=== PATIENT | female | born 1960 | race Caucasian/White ===

== ENCOUNTER 2016-09-16 11:43 | Emergency (ER) | payer MEDICARE, OTHER ==
[~2016-09-16] VITALS: Ht 167.6 cm; Wt 111.6 kg
[~2016-09-16 11:43] MED LIST: ATOR10TA60 PO; CLON0.1T PO; DILT60CA PO; FLUT1DIS3 IH; HYDR-971 PO; IPRA0.2S5 IH; LISI1TAB5 PO; LORA1TAB PO; METF500T4 PO; MOME13HF IH; NAPR500T PO; OXYC-323 PO; PRED1TAB3 PO; PROAIR HFA8.5 GM IH; SULF1TAB24 PO
[2016-09-16 11:54] VITALS: BP 194/100
[2016-09-16] MEDS ORDERED: NAPROXEN 500 MG TABLET PO STA (12:04)
[2016-09-16] MEDS ORDERED: NAPR500T8 PO (12:09)
[2016-09-16] MEDS ORDERED: HYDR-971 PO (12:09)
[2016-09-16] MEDS ORDERED: CYCL10TA2 PO (12:09)
[2016-09-16] MEDS ORDERED: METH4TAB2 PO (12:09)
--- NOTE | 2016-09-16 12:09 | PHYS DOC ---
Past Medical History Past Medical History: Anxiety, Cancer, COPD, High Cholesterol, Hypertension Past Surgical History: Appendectomy Additional Past Surgical Histo: nephrectomy, uterine ablation, hernia, colon resection Alcohol Use: Occasionally Drug Use: None Adult General Chief Complaint Chief Complaint: LOWER EXT PAIN HPI HPI Patient is a 55 year old female with a history of anxiety, hypertension, COPD, who presents today with moderate right hip pain radiating to the left lower extremity that began a month ago. Patient states she has tried [id number] remedies with no relief. She states her pain is worse when she is bearing weight to the right lower extremity. Patient denies any trauma. Denies any loss of bowel bladder was function. Review of Systems Review of Systems Constitutional: Denies fever or chills [] Eyes: Denies change in visual acuity, redness, or eye pain [] HENT: Denies nasal congestion or sore throat [] Musculoskeletal: Pain radiating from the right hip into the right lower extremity Integument: Denies rash or skin lesions [] Neurologic: Denies headache, focal weakness or sensory changes [] Endocrine: Denies polyuria or polydipsia [] Current Medications Current Medications Current Medications Medications (Trade) Dose Ordered Sig/Prieto Start Time Stop Time Status Last Admin Dose Admin Acetaminophen/ Hydrocodone Bitart (Lortab 5/325) 2 tab 1X ONCE 09/16/16 12:15 09/16/16 12:16 Cyclobenzaprine HCl (Flexeril) 10 mg 1X ONCE 09/16/16 12:15 09/16/16 12:16 Naproxen (Naprosyn) 500 mg 1X STAT 09/16/16 12:04 09/16/16 12:08 DC Allergies Allergies Allergies Coded Allergies Type Severity Reaction Last Updated Verified Beta-Blockers (Beta-Adrenergic Bloc Allergy Severe BREATHING PROBLEMS 10/22/13 Yes Iodinated Contrast Media - IV Dye Allergy Intermediate SWELLING AND ITCHING 10/22/13 Yes Physical Exam Physical Exam Constitutional: Well developed, well nourished, no acute distress, non-toxic appearance. [] HENT: Normocephalic, atraumatic, bilateral external ears normal, oropharynx moist, no oral exudates, nose normal. [] Eyes: PERRLA, EOMI, conjunctiva normal, no discharge. [] Skin: Warm, dry, no erythema, no rash. [] Back: No tenderness, no CVA tenderness. Positive right leg straight raises. Extremities: No tenderness, no cyanosis, no clubbing, ROM intact, no edema. [] Neurologic: Alert and oriented X 3, normal motor function, normal sensory function, no focal deficits noted. [] Psychologic: Affect normal, judgement normal, mood normal. [] Current Patient Data Vital Signs Vital Signs Date Time Temp Pulse Resp B/P (MAP) Pulse Ox O2 Delivery O2 Flow Rate FiO2 09/16/16 11:54 97.6 125 20 97 Room Air 97.6 EKG EKG [] Radiology/Procedures Radiology/Procedures [] Course & Med Decision Making Course & Med Decision Making Pertinent Labs and Imaging studies reviewed. (See chart for details) Patient is in the ED with pain consistent with sciatica. She has tried over-the- counter remedies with no relief. She is given a shot course of Medrol Dosepak, naproxen, Flexeril, and hydrocodone and instructed to follow-up with her PCP in the next 7 days. She was provided return precautions and discharged in stable condition. Dragon Disclaimer Dragon Disclaimer This electronic medical record was generated, in whole or in part, using a voice recognition dictation system. Departure Departure Impression: Primary Impression: Right sciatic nerve pain Disposition: HOME, SELF-CARE Condition: STABLE Referrals: ISMAEL BENITES MD (PCP) follow up with your doctor in one week Patient Instructions: Sciatica with [facility] Additional Instructions: You were seen for sciatic nerve pain. Take the prescribed medicines as needed. Follow-up with your own doctor in the next 7 days. Scripts Naproxen (NAPROXEN) 500 Mg Tablet. 1 TAB PO BID, #60 TAB 1 Refill Prov: GAYE VERMA APRN 09/16/16 Cyclobenzaprine Hcl (CYCLOBENZAPRINE HCL) 10 Mg Tablet 1 TAB PO TID, #30 TAB Prov: GAYE VERMA APRN 09/16/16 Hydrocodone/Apap 5-325 (NORCO 5-325 TABLET) 1 Each Tablet 1 TAB PO Q4-6HRS, #12 TAB Prov: GAYE VERMA HADOOP CONSULTANT 09/16/16 Methylprednisolone (MEDROL) 4 Mg Tab.ds.pk 1 PKG PO UD, #1 PKG Prov: GAYE VERMA HADOOP CONSULTANT 09/16/16 GAYE VERMA APRN Sep 16, 2016 12:09
[2016-09-16] MEDS ORDERED: HYDROcodone/APAP 5/325MG 1 TAB TABLET PO ONE (12:15)
[2016-09-16] MEDS ORDERED: CYCLOBENZAPRINE 10 MG TABLET. PO ONE (12:15)
== END 2016-09-16 12:15 | disposition home or self-care (01) ==
LOC: ER 11:43
DX: M54.31 Sciatica, right side (principal); F41.9 Anxiety disorder, unspecified; J44.9 Chronic obstructive pulmonary disease, unspecified; E78.00 Pure hypercholesterolemia, unspecified; I10 Essential (primary) hypertension; Z90.49 Acquired absence of other specified parts of digestive tract; Z90.5 Acquired absence of kidney; Z88.8 Allergy status to other drugs, medicaments and biological substances; Z91.041 Radiographic dye allergy status
CPT/HCPCS: 99284

== ENCOUNTER → 2016-10-28 | Outpatient (CLI) | payer MEDICARE, OTHER ==
[~2016-10-28] MED LIST changes: +CYCL10TA2 PO; +METH4TAB2 PO; +NAPR500T8 PO
--- NOTE | 2016-10-31 17:27 | CARD ---
APPROVED REPORT EXAM: Two-dimensional and M-mode echocardiogram with Doppler and color Doppler. Other Information Quality : Average Rhythm : NSR INDICATION Dyspnea 2D DIMENSIONS RVDd2.3 (2.9-3.5cm)Left Atrium(2D)3.5 (1.6-4.0cm) IVSd1.3 (0.7-1.1cm)Aortic Root(2D)2.7 (2.0-3.7cm) LVDd4.1 (3.9-5.9cm)LVOT Diameter2.4 (1.8-2.4cm) PWd1.3 (0.7-1.1cm)LVDs3.1 (2.5-4.0cm) FS (%) 25.4 %SV38.1 ml LVEF(%)50.5 (>50%) Aortic Valve AoV Peak Ebenezer.123.2cm/sAoV VTI17.4cm AO Peak GR.6.1mmHgLVOT Peak Ebenezer.106.3cm/s AO Mean GR.3mmHgAVA (VMAX)3.78cm2 Mitral Valve MV E Knjatolc74.7cm/sMV DECEL CDAZ774at MV A Lalxfekr187.5cm/sE/A Ratio0.7 MV A Msllunra14dc Tricuspid Valve TR P. Hsldzyvx549cc/sRAP JWVAPNSG2xvCn TR Peak Gr.02hiUsZDDY08xwVu LEFT VENTRICLE The left ventricle is normal size. There is borderline to mild concentric left ventricular hypertroph y. Left ventricle systolic function is normal. The Ejection Fraction is 55%. There is normal LV segme ntal wall motion. Tissue Doppler imaging reveals mild left ventricular diastolic dysfunction. Transmi tral Doppler flow pattern is Grade I-abnormal relaxation pattern. RIGHT VENTRICLE The right ventricle is normal size. The right ventricular systolic function is normal. ATRIA The left atrium size is normal. The right atrium size is normal. The interatrial septum is intact wit h no evidence for an atrial septal defect or patent foramen ovale as noted on 2-D or Doppler imaging. AORTIC VALVE The aortic valve is not well visualized. Doppler and Color Flow revealed no significant aortic regurg itation. There is no significant aortic valvular stenosis. MITRAL VALVE Mitral annular calcification is mild. There is no mitral valve stenosis. Doppler and Color Flow revea led no mitral valve regurgitation noted. TRICUSPID VALVE The tricuspid valve is normal in structure and function. Doppler and Color Flow revealed trace tricus pid regurgitation. The PA pressure was estimated at 16 mmHg. There is no tricuspid valve stenosis. PULMONIC VALVE The pulmonic valve is not well visualized. Doppler and Color Flow revealed no pulmonic valvular regur gitation. There is no pulmonic valvular stenosis. GREAT VESSELS The aortic root is normal in size. Pulmonary veins not recorded. The IVC is normal in size and collap ses >50% with inspiration. PERICARDIAL EFFUSION There is no evidence of significant pericardial effusion. Critical Notification Critical Value: No <Conclusion> Left ventricle systolic function is normal. The Ejection Fraction is 55%. There is normal LV segmental wall motion. Transmitral Doppler flow pattern is Grade I-abnormal relaxation pattern. Trace tricuspid regurgitation. The PA pressure was estimated at 16 mmHg. There is no evidence of significant pericardial effusion.
== END | disposition home or self-care (01) ==
LOC: ECHO 12:56
PROVIDERS: ATTEND Internal Medicine Cardiovascular Disease
DX: I07.1 Rheumatic tricuspid insufficiency (principal)
CPT/HCPCS: 93306

== ENCOUNTER 2016-11-24 10:08 | Emergency (ER) | payer MEDICARE, MEDICAID ==
[~2016-11-24] VITALS: Ht 167.6 cm; Wt 107.0 kg
--- NOTE | 2016-11-24 10:44 | PHYS DOC ---
Past Medical History Past Medical History: Anxiety, Arthritis, Cancer, COPD, High Cholesterol, Hypertension Past Surgical History: Appendectomy Additional Past Surgical Histo: nephrectomy, uterine ablation, hernia, colon resection Alcohol Use: Occasionally Drug Use: None Adult General Chief Complaint Chief Complaint: BACK PAIN OR INJURY [facility] HPI Patient is a 56 year old female presents emergency department stating that she had fallen when she went to get out of bed and landed on her right hip. She states she has had increased pain and discomfort. Patient states that she is also having left lower back pain and discomfort radiates down into her left foot. Patient states she is able to ambulate however she has taken Tylenol for pain and discomfort with minimal relief. He states that she did call her primary care physician and was told that they are out of town until December 10. She does have an appointment at that time. She denies any loss of bowel or bladder. Patient denies any further symptoms at this time. Review of Systems Review of Systems Constitutional: Denies fever or chills [] Eyes: Denies change in visual acuity, redness, or eye pain [] HENT: Denies nasal congestion or sore throat [] Respiratory: Denies cough or shortness of breath [] Cardiovascular: No additional information not addressed in HPI [] GI: Denies abdominal pain, nausea, vomiting, bloody stools or diarrhea [] : Denies dysuria or hematuria [] Musculoskeletal: C/o bilateral lower back pain with right hip pain Integument: Denies rash or skin lesions [] Neurologic: Denies headache, focal weakness or sensory changes [] Endocrine: Denies polyuria or polydipsia [] Current Medications Current Medications Current Medications Medications (Trade) Dose Ordered Sig/Prieto Start Time Stop Time Status Last Admin Dose Admin Cyclobenzaprine HCl (Flexeril) 10 mg 1X ONCE 11/24/16 11:15 11/24/16 11:16 DC 11/24/16 10:48 10 MG Ibuprofen (Motrin) 800 mg 1X ONCE 11/24/16 11:15 11/24/16 11:16 DC 11/24/16 10:49 800 MG Allergies Allergies Allergies Coded Allergies Type Severity Reaction Last Updated Verified Beta-Blockers (Beta-Adrenergic Bloc Allergy Severe BREATHING PROBLEMS 10/22/13 Yes Iodinated Contrast- Oral and IV Dye Allergy Intermediate SWELLING AND ITCHING 10/22/13 Yes Physical Exam Physical Exam Constitutional: Well developed, well nourished, no acute distress, non-toxic appearance. [] HENT: Normocephalic, atraumatic, bilateral external ears normal, oropharynx moist, no oral exudates, nose normal. [] Eyes: PERRLA, EOMI, conjunctiva normal, no discharge. [] Neck: Normal range of motion, no tenderness, supple, no stridor. [] Cardiovascular:Heart rate regular rhythm, no murmur [] Lungs & Thorax: Bilateral breath sounds clear to auscultation [] Skin: Warm, dry, no erythema, no rash. [] Back: bilateral lower back tenderness with right hip tenderness Extremities: No tenderness, no cyanosis, no clubbing, ROM intact, no edema. Peripheral pulses 2+ cap refill brisk less than 2 seconds. Neurologic: Alert and oriented X 3, normal motor function, normal sensory function, no focal deficits noted. [] Psychologic: Affect normal, judgement normal, mood normal. [] Current Patient Data Vital Signs Vital Signs Date Time Temp Pulse Resp B/P (MAP) Pulse Ox O2 Delivery O2 Flow Rate FiO2 11/24/16 10:21 98.8 118 22 178/97 (124) 97 Room Air 98.8 EKG EKG [] Radiology/Procedures Radiology/Procedures [facility] [address] [place] [address] IMAGING REPORT Signed PATIENT: PAULO NIEVES ACCOUNT: [id number] : 08/13/1981 LOCATION: ER AGE: 35 SEX: F EXAM STATUS: PRE ER ORD. PHYSICIAN: SANIYA MURRAY APRN REASON: pacemaker pinching in the left upper chest PROCEDURE: PORTABLE CHEST 1V AP portable chest radiograph 11/24/2016 Clinical History: Lightheadedness earlier today with chest pain around pacemaker in left chest. An AP portable erect digital radiograph of the chest was obtained. Comparison study is dated 10/24/2016. The left-sided pacemaker is unchanged position. The cardiac silhouette is borderline enlarged. The thoracic aorta is mildly tortuous. No acute pulmonary infiltrate is seen. No pleural effusion or pneumothorax is noted. The osseous structures are unchanged. Impression: No acute abnormality is seen. DICTATED and SIGNED BY: KATHY MCKEON MD DATE: 11/24/16 1043 CC: JORDAN EVANGELISTA; SANIYA MURRAY APRN ~ [] Course & Med Decision Making Course & Med Decision Making Pertinent Labs and Imaging studies reviewed. (See chart for details) Patient was provided with Flexeril and ibuprofen here in the emergency department in which patient states that the pain is decreasing. Patient's x- rays were negative in which she had a right hip and pelvis completed. Patient will be discharged home with a prescription for Flexeril with recommendations to continue with ibuprofen at home. Ice packs on 20 minutes off 20 minutes several times a day. Patient agrees with discharge instructions, treatment regimens and follow-up recommendations. Signs and symptoms to return back to emergency prior has been provided. Patient agrees with discharge instructions treatment regimens and follow-up recommendations. All questions were answered for the patient at her bedside. [] Dragon Disclaimer Dragon Disclaimer This electronic medical record was generated, in whole or in part, using a voice recognition dictation system. Departure Departure Impression: Primary Impression: Fall Additional Impression: Back pain Disposition: HOME, SELF-CARE Condition: STABLE Referrals: ISMAEL BENITES MD (PCP) Patient Instructions: Back Pain, Adult, Gosr-nv-Mggb, Fall Prevention and Home Safety, [id number]-[id number] Additional Instructions: Activity as tolerated. Ice packs on 20 minutes off 20 minutes several times a day. Flexeril will help with muscle spasms. This medication however will cause drowsiness do not take any be alert and oriented. Ibuprofen 800 mg every 8 hours with food stop taking few develop an upset stomach. Follow-up to primary care physician in one week. Return to emergency prior signs symptoms of become worse. Problem Qualifiers SANIYA MURRAY APRN Nov 24, 2016 10:44
--- NOTE | 2016-11-24 11:14 | RAD ---
Indication fall 2 days previously. Severe pain right hip. An AP view of the pelvis was obtained as well as targeted AP and lateral views of the right hip. No acute bony finding is seen. There are substantial degenerative changes involving both hips right greater than left. There is complete loss of the joint space on the right. There is sclerosis of the femoral head and adjacent acetabulum with some degenerative cyst change associated with the acetabulum. IMPRESSION: Advanced degenerative changes involving the hips right greater than left. No acute bony finding seen
[2016-11-24] MEDS ORDERED: IBUPROFEN 800 MG TABLET. PO ONE (11:15)
[2016-11-24] MEDS ORDERED: CYCLOBENZAPRINE 10 MG TABLET. PO ONE (11:15)
[2016-11-24] MEDS ORDERED: CYCL10TA2 PO (11:43)
[2016-11-24 11:54] VITALS: BP 167/89
== END 2016-11-24 11:55 | disposition home or self-care (01) ==
LOC: ER 10:08
DX: M54.5 Low back pain (principal); M25.551 Pain in right hip; E78.00 Pure hypercholesterolemia, unspecified; I10 Essential (primary) hypertension; J44.9 Chronic obstructive pulmonary disease, unspecified; Z95.0 Presence of cardiac pacemaker; M19.90 Unspecified osteoarthritis, unspecified site; Z90.49 Acquired absence of other specified parts of digestive tract; Z88.8 Allergy status to other drugs, medicaments and biological substances; Z91.041 Radiographic dye allergy status; W06.XXXA Fall from bed, initial encounter; Y93.89 Activity, other specified; Y99.8 Other external cause status; Y92.89 Other specified places as the place of occurrence of the external cause
CPT/HCPCS: 73502; 99284

== ENCOUNTER → 2017-04-04 | Outpatient (CLI) | payer MEDICARE, MEDICAID ==
[2017-01-28 11:00] VITALS: BP 116/92
[~2017-04-04] MED LIST changes: +AMLO10TA2; +ATOR40TA59; +BUDE10.2; +BUPIVACAINE MPF 0.5% 10 ML VIAL for KCIC. IJ ONE; +BUPR300T4; +CLON1TAB3; +GLIP5TAB10 PO; +INSU100I27 SQ; +IOHEXOL 300 MG/ML 50 ML VIAL. INT ART ONE; +LIDOCAINE 1% Multi-Dose 20 ML VIAL. ID ONE; +LOSA100T6; +METF500T4; +NAPR-683 PO; -NAPR500T PO; +OXYC1TAB7 PO; +PIOG15TA42 PO; +SPIR25TA3; +methylPREDNISolone ACETATE 40 MG/ML VIAL. INT ART ONE
--- NOTE | 2017-04-04 14:18 | KCIC ---
Bilateral hip injections HISTORY: Chronic bilateral hip pain Technique: Patient was informed of the risks to include pain, infection, bleeding, nerve or blood vessel injury, allergic reaction. All questions were answered. Patient signed a written consent form for bilateral hip injections for pain therapy. Patient reports a history of iodine allergy, premedicated with Benadryl and steroids prior to exam. Patient was placed in supine position on the fluoroscopy table. Initially the external skin site overlying right was prepped and draped in the usual sterile fashion. Betadine was utilized for cleansing solution. 1% lidocaine was utilized for local anesthesia to the depth of the bone. 22-gauge spinal needle was advanced under fluoroscopy to depth of the bone. After negative aspiration, mixture of 4 cc lidocaine, 4 cc Omnipaque 300, 4 cc Marcaine, 80 mg Depo-Medrol were injected during fluoroscopic visualization. Needle was removed. There were no immediate complications. Bandage was applied. Patient was rotated on the fluoroscopy table. Utilizing the same technique, the procedure was performed utilizing the same technique and mixture for injection of the left hip (mixture of 4 cc lidocaine, 4 cc Omnipaque 300, 4 cc Marcaine, 80 mg Depo-Medrol). Bandage was applied. There were no immediate complications. 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 Fluoroscopy time 2 minutes 6 seconds, 2 images. Impression: 1. Apparently technically successful bilateral hip injection, no immediate complication. Electronically signed by: Sourav Marin MD (04/04/2017 2:15 PM) [facility]
== END | disposition home or self-care (01) ==
LOC: KCIC 11:56
PROVIDERS: ATTEND Orthopaedic Surgery Sports Medicine
DX: M25.551 Pain in right hip (principal); M25.552 Pain in left hip
CPT/HCPCS: 20610; 77002; J1030; Q9967

== ENCOUNTER → 2017-04-19 | Outpatient (CLI) | payer MEDICARE, MEDICAID | END | disposition home or self-care (01) | LOC: KCIC MRI 11:40 | DX: M51.36 Other intervertebral disc degeneration, lumbar region (principal); M25.552 Pain in left hip; M25.551 Pain in right hip; M43.16 Spondylolisthesis, lumbar region; M48.061 Spinal stenosis, lumbar region without neurogenic claudication; M25.78 Osteophyte, vertebrae | CPT/HCPCS: 72148 ==

== ENCOUNTER → 2017-05-03 | Outpatient (CLI) | payer MEDICARE, MEDICAID ==
[~2017-05-03] MED LIST changes: -AMLO10TA2; -ATOR10TA60 PO; -ATOR40TA59; -BUDE10.2; -BUPIVACAINE MPF 0.5% 10 ML VIAL for KCIC. IJ ONE; -BUPR300T4; -CLON0.1T PO; -CLON1TAB3; -CYCL10TA2 PO; -DILT60CA PO; -FLUT1DIS3 IH; -GLIP5TAB10 PO; -HYDR-971 PO; -INSU100I27 SQ; +IOHEXOL 180 MG/ML 10 ML VIAL.; -IOHEXOL 300 MG/ML 50 ML VIAL. INT ART ONE; -IPRA0.2S5 IH; -LIDOCAINE 1% Multi-Dose 20 ML VIAL. ID ONE; -LISI1TAB5 PO; -LORA1TAB PO; -LOSA100T6; -METF500T4; -METF500T4 PO; -METH4TAB2 PO; -MOME13HF IH; -NAPR-683 PO; -NAPR500T8 PO; -OXYC-323 PO; -OXYC1TAB7 PO; -PIOG15TA42 PO; -PRED1TAB3 PO; -PROAIR HFA8.5 GM IH; -SPIR25TA3; -SULF1TAB24 PO; +methylPREDNISolone ACETATE 40 MG/ML VIAL.; -methylPREDNISolone ACETATE 40 MG/ML VIAL. INT ART ONE; +methylPREDNISolone ACETATE 80 MG/ML VIAL.
== END | disposition home or self-care (01) ==
LOC: PNCL 10:20
DX: M51.16 Intervertebral disc disorders with radiculopathy, lumbar region (principal); M48.061 Spinal stenosis, lumbar region without neurogenic claudication; E11.9 Type 2 diabetes mellitus without complications; M19.90 Unspecified osteoarthritis, unspecified site; F17.210 Nicotine dependence, cigarettes, uncomplicated; E78.00 Pure hypercholesterolemia, unspecified; E11.42 Type 2 diabetes mellitus with diabetic polyneuropathy; E66.9 Obesity, unspecified; F41.9 Anxiety disorder, unspecified; F32.9 Major depressive disorder, single episode, unspecified; D64.9 Anemia, unspecified; I12.9 Hypertensive chronic kidney disease with stage 1 through stage 4 chronic kidney disease, or unspecified chronic kidney disease; E11.22 Type 2 diabetes mellitus with diabetic chronic kidney disease; N18.9 Chronic kidney disease, unspecified; J43.9 Emphysema, unspecified; Z90.710 Acquired absence of both cervix and uterus; Z98.51 Tubal ligation status
CPT/HCPCS: 62323; J1030; J1040

== ENCOUNTER → 2017-05-17 | Outpatient (CLI) | payer MEDICARE, MEDICAID | END | disposition home or self-care (01) | LOC: PNCL 09:23 | DX: M51.16 Intervertebral disc disorders with radiculopathy, lumbar region (principal); M48.061 Spinal stenosis, lumbar region without neurogenic claudication; E78.00 Pure hypercholesterolemia, unspecified; J43.9 Emphysema, unspecified; K21.9 Gastro-esophageal reflux disease without esophagitis; E66.9 Obesity, unspecified; E11.9 Type 2 diabetes mellitus without complications; D64.9 Anemia, unspecified; Z91.041 Radiographic dye allergy status; Z72.89 Other problems related to lifestyle; Z72.0 Tobacco use; Z98.51 Tubal ligation status; Z91.048 Other nonmedicinal substance allergy status | CPT/HCPCS: 62323; J1030; J1040 ==

== ENCOUNTER → 2017-06-13 | Outpatient (CLI) | payer MEDICARE, MEDICAID ==
[2017-06-13 09:15] LABS: ADD MAN DIFF? NO
[2017-06-13 09:19] LABS: BASO % 0 % (0-3); EOS # 0.2 x10^3/uL (0.0-0.7); EOS % 1 % (0-3); HEMATOCRIT 46.6 % (36.0-47.0); HEMOGLOBIN 15.6 g/dL (12.0-15.5); LYMPH # 2.8 x10^3/uL (1.0-4.8); LYMPH % 20 % (24-48); MEAN CORPUSCULAR HEMOGLOBIN 30 pg (25-35); MEAN CORPUSCULAR HGB CONC 34 g/dL (31-37); MEAN CORPUSCULAR VOLUME 89 fL (79-100); MONO # 0.6 x10^3/uL (0.0-1.1); MONO % 5 % (0-9); NEUT # 10.1 x10^3uL (1.8-7.7); NEUT % 74 % (31-73); PLATELET COUNT 335 x10^3/uL (140-400); RED BLOOD COUNT 5.23 x10^6/uL (3.50-5.40); WHITE BLOOD COUNT 13.7 x10^3/uL (4.0-11.0)
[2017-06-13 09:28] LABS: PARTIAL THROMBOPLASTIN TIME 24 SEC (24-38); PROTHROMBIN TIME PATIENT 12.4 SEC (11.7-14.0)
[2017-06-13 10:19] LABS: SEDIMENTATION RATE 24 (0-25)
[2017-06-13 11:03] LABS: BILIRUBIN,URINE SMALL (NEG); CLARITY,URINE CLEAR; COLOR,URINE AMBER; GLUCOSE,URINE NEGATIVE (NEG); NITRITE,URINE NEGATIVE (NEG); PROTEIN,URINE 30 mg/dL (NEG-TRACE)
[2017-06-13 11:07] LABS: SQUAMOUS EPITHELIAL CELL,UR MOD /LPF
[2017-06-13 11:08] LABS: BACTERIA,URINE MODERATE /HPF (0-FEW); RBC,URINE 0 /HPF (0-2)
[2017-06-13 21:10] LABS: MRSA BY PCR Negative (Negative)
== END | disposition home or self-care (01) ==
LOC: SURGPAT 12:23
DX: Z01.818 Encounter for other preprocedural examination (principal); I10 Essential (primary) hypertension; M16.11 Unilateral primary osteoarthritis, right hip; R00.0 Tachycardia, unspecified; R79.89 Other specified abnormal findings of blood chemistry
CPT/HCPCS: 36415; 71046; 81001; 85025; 85610; 85651; 85730; 87086; 87641; 93005

== ENCOUNTER → 2017-07-26 | Outpatient (CLI) | payer MEDICARE, MEDICAID | END | disposition home or self-care (01) | LOC: LAB 09:39 | DX: R79.1 Abnormal coagulation profile (principal); Z79.01 Long term (current) use of anticoagulants | CPT/HCPCS: 36415; 85610 ==

== ENCOUNTER → 2017-08-15 | Outpatient (CLI) | payer MEDICARE, MEDICAID ==
[2017-08-15 14:38] LABS: ADD MAN DIFF? NO
[2017-08-15 14:43] LABS: BASO # 0.1 x10^3/uL (0.0-0.2); BASO % 1 % (0-3); EOS # 0.2 x10^3/uL (0.0-0.7); EOS % 2 % (0-3); HEMATOCRIT 44.5 % (36.0-47.0); HEMOGLOBIN 15.6 g/dL (12.0-15.5); LYMPH # 3.2 x10^3/uL (1.0-4.8); LYMPH % 30 % (24-48); MEAN CORPUSCULAR HEMOGLOBIN 31 pg (25-35); MEAN CORPUSCULAR HGB CONC 35 g/dL (31-37); MEAN CORPUSCULAR VOLUME 88 fL (79-100); MONO # 0.5 x10^3/uL (0.0-1.1); MONO % 5 % (0-9); NEUT # 6.6 x10^3uL (1.8-7.7); NEUT % 62 % (31-73); PLATELET COUNT 391 x10^3/uL (140-400); RED BLOOD COUNT 5.05 x10^6/uL (3.50-5.40); RED CELL DISTRIBUTION WIDTH 13.1 % (11.5-14.5); WHITE BLOOD COUNT 10.7 x10^3/uL (4.0-11.0)
[2017-08-15 14:45] LABS: BILIRUBIN,URINE SMALL (NEG); CLARITY,URINE CLEAR; COLOR,URINE YELLOW; GLUCOSE,URINE NEGATIVE (NEG); NITRITE,URINE NEGATIVE (NEG); PH,URINE 6.5; PROTEIN,URINE 30 mg/dL (NEG-TRACE)
[2017-08-15 14:49] LABS: BACTERIA,URINE MODERATE /HPF (0-FEW); RBC,URINE 0 /HPF (0-2); SQUAMOUS EPITHELIAL CELL,UR MOD /LPF
[2017-08-15 14:50] LABS: ALBUMIN 3.7 g/dL (3.4-5.0); ANION GAP 12 (6-14); BLOOD UREA NITROGEN 12 mg/dL (7-20); CALCIUM 9.3 mg/dL (8.5-10.1); CARBON DIOXIDE 25 mmol/L (21-32); CHLORIDE 103 mmol/L (98-107); CREATININE 0.7 mg/dL (0.6-1.0); GFR 86.6; GLUCOSE 108 mg/dL (70-99); SODIUM 140 mmol/L (136-145)
[2017-08-15 14:51] LABS: PARTIAL THROMBOPLASTIN TIME 26 SEC (24-38); PROTHROMBIN TIME PATIENT 12.3 SEC (11.7-14.0)
[2017-08-15 16:08] LABS: SEDIMENTATION RATE 23 (0-25)
[2017-08-16 00:15] LABS: MRSA BY PCR Negative (Negative)
[2017-08-16 01:11] LABS: HEMOGLOBIN A1C 5.3 % (4.8-5.6)
== END | disposition home or self-care (01) ==
LOC: SURGPAT 13:31
DX: Z01.818 Encounter for other preprocedural examination (principal); M16.12 Unilateral primary osteoarthritis, left hip; I12.9 Hypertensive chronic kidney disease with stage 1 through stage 4 chronic kidney disease, or unspecified chronic kidney disease; E11.22 Type 2 diabetes mellitus with diabetic chronic kidney disease; N18.3 Chronic kidney disease, stage 3 (moderate); E78.00 Pure hypercholesterolemia, unspecified; R82.90 Unspecified abnormal findings in urine
CPT/HCPCS: 36415; 80048; 81001; 82040; 83036; 85025; 85610; 85651; 85730; 87086; 87641

== ENCOUNTER 2017-08-29 07:51 | Inpatient (IN) | payer MEDICARE, MEDICAID ==
[2017-08-29] MEDS: IV RINGERS,LACTATED 1000ML 1,000 ML IV (07:45)
[~2017-08-29 07:51] MED LIST changes: +DEXAMETHASONE SOD PHOS 20 MG/5 ML VIAL.; +GLYCOPYRROLATE 1 MG/5 ML VIAL.; +HYDROcodone/APAP 7.5/325MG 1 TAB TABLET PO; -IOHEXOL 180 MG/ML 10 ML VIAL.; +IV RINGERS,LACTATED 1000ML 1,000 ML IV; +LIDOCAINE 1% PF 2 ML VIAL. ID; +LIDOCAINE 2% PF Vial for OR 5 ML VIAL.; +MELOXICAM 7.5 MG TABLET PO; +MIDAZOLAM HCL/PF 2 MG/2 ML VIAL.; +MORPHINE SULFATE 4 MG/ML DISP.SYRIN. IV; +NEOSTIGMINE METHYLSULFATE 5 MG/5 ML SYRINGE.; +ONDANSETRON PF 4 MG/2 ML VIAL.; +ONDANSETRON PF 4 MG/2 ML VIAL. IV; +PHENYLEPHRINE in 0.9% NACL PF 1 MG/10 ML SYRINGE. IV; +PROCHLORPERAZINE 10 MG/2 ML VIAL. IV; +PROPOFOL 20 ML IV; +ROCURONIUM 50 MG/5 ML VIAL.; +SEVOFLURANE 61 TO 120 MINUTES. IH; +fentaNYL PF VIAL 100 MCG/2 ML VIAL; +fentaNYL PF VIAL 100 MCG/2 ML VIAL IV; -methylPREDNISolone ACETATE 40 MG/ML VIAL.; -methylPREDNISolone ACETATE 80 MG/ML VIAL.
[2017-08-29] MEDS ORDERED: ePHEDrine PF IN SALINE 50 MG/5 ML DISP.SYRIN IV (07:53)
[2017-08-29] MEDS: IV DEXTROSE 5 %-0.45 % NACL 1,000 ML IV (08:01)
[2017-08-29] MEDS ORDERED: CALCIUM CARBONATE 500 MG TAB.CHEW PO (08:15)
[2017-08-29] MEDS ORDERED: PROCHLORPERAZINE 5 MG TABLET. PO (08:15)
[2017-08-29] MEDS ORDERED: oxyCODONE/APAP 5/325 1 TAB TABLET PO (08:15)
[2017-08-29] MEDS ORDERED: DEXTROSE 50% 25 GM / 50ML DISP.SYRIN. IV ×2 (08:15→11:00)
[2017-08-29] MEDS ORDERED: MORPHINE SULFATE 10 MG/ML VIAL. IV (08:15)
[2017-08-29] MEDS ORDERED: 0.9 % SODIUM CHLORIDE 10 ML DISP.SYRIN. IV (08:15)
[2017-08-29] MEDS ORDERED: PROCHLORPERAZINE 10 MG/2 ML VIAL. IV (08:15)
[2017-08-29] MEDS ORDERED: ACETAMINOPHEN 325 MG TABLET. PO (08:15)
[2017-08-29] MEDS ORDERED: traMADol 50 MG TABLET PO ×2 (08:15)
[2017-08-29] MEDS ORDERED: HYDROcodone/APAP 10/325 1 TAB TABLET PO (08:15)
[2017-08-29] MEDS ORDERED: MORPHINE SULFATE 4 MG/ML DISP.SYRIN. IV ×3 (08:15)
[2017-08-29] MEDS ORDERED: ZOLPIDEM 5 MG TABLET. PO (08:15)
[2017-08-29] MEDS ORDERED: fentaNYL PF VIAL 100 MCG/2 ML VIAL IV ×2 (08:15)
[2017-08-29] MEDS ORDERED: METOCLOPRAMIDE HCL 10 MG/2 ML VIAL. IV (08:15)
[2017-08-29] MEDS ORDERED: HYDROcodone/APAP 7.5/325MG 1 TAB TABLET PO (08:15)
[2017-08-29] MEDS ORDERED: diphenhydrAMINE 50 MG/ML VIAL IV (08:15)
[2017-08-29 08:24] LABS: POC GLUCOSE 132 mg/dL (70-99)
[2017-08-29 08:51] LABS: PARTIAL THROMBOPLASTIN TIME 25 SEC (24-38)
[2017-08-29] MEDS ORDERED: NON FORMULARY ITEM (Budesonide/Formoterol Fumarate (Symbicort 160-4.5 Mcg Inhaler) 2 PUFF) INH (09:00)
[2017-08-29] MEDS: TRANEXAMIC ACID 1,000 MG in IV NS 50ML -- 1ST BAG INJ (09:00)
[2017-08-29] MEDS ORDERED: ESMOLOL 100 MG/10 ML VIAL. IV (09:12)
[2017-08-29] MEDS: TV=100ml MORPHINE 5 MG, KETOROLAC 30 MG, ROPIVacaine 0.5% PF 60 ML, EPINEPH... INT ART (09:14)
[2017-08-29] MEDS ORDERED: fentaNYL PF VIAL 100 MCG/2 ML VIAL ×2 (09:29→10:24)
[2017-08-29] MEDS ORDERED: hydrALAZINE 20 MG/ML VIAL. (09:32)
[2017-08-29 09:42] LABS: PROTHROMBIN TIME PATIENT 12.5 SEC (11.7-14.0)
[2017-08-29] MEDS ORDERED: ALBUTEROL SULFATE 2.5 MG/3 ML NEBU. NEB (09:45)
[2017-08-29] MEDS: TRANEXAMIC ACID 1,000 MG in IV NS 50ML -- 2ND BAG INJ (10:13)
[2017-08-29] MEDS: fentaNYL PF VIAL 100 MCG/2 ML VIAL IV ×3 (11:05→12:21)
[2017-08-29 11:29] LABS: POC GLUCOSE 157 mg/dL (70-99)
[2017-08-29] MEDS: MORPHINE SULFATE 4 MG/ML DISP.SYRIN. IV ×4 (11:52→12:24)
[2017-08-29] MEDS: INSULIN LISPRO 300 UNITS/3 ML INSULN.PEN. SQ ×2 (12:00→16:54)
[2017-08-29] MEDS ORDERED: NON FORMULARY ITEM (Albuterol Sulfate (Ventolin Hfa Inhaler) 2 PUFF) INH (12:00)
[2017-08-29] MEDS: BUDESONIDE 0.5 MG/2 ML NEBU. NEB (14:18)
[2017-08-29] MEDS: ALBUTEROL SULFATE 2.5 MG/3 ML NEBU. NEB (14:19)
[2017-08-29] MEDS: oxyCODONE/APAP 7.5/325 1 TAB TABLET PO ×3 (14:30→23:08)
[2017-08-29] MEDS: CYCLOBENZAPRINE 10 MG TABLET. PO ×2 (14:30→20:20)
[2017-08-29 16:41] LABS: POC GLUCOSE 204 mg/dL (70-99)
[2017-08-29] MEDS: metFORMIN 500 MG TABLET PO (16:51)
[2017-08-29] MEDS: FERROUS SULFATE 325 MG TABLET. PO (16:51)
[2017-08-29] MEDS: WARFARIN 7.5 MG TABLET. PO (16:53)
[2017-08-29] MEDS: CELECOXIB 200 MG CAPSULE. PO (20:20)
[2017-08-29] MEDS: ATORVASTATIN CALCIUM 20 MG TABLET PO (20:20)
[2017-08-29] MEDS: clonazePAM 1 MG TABLET PO (20:20)
[2017-08-30] MEDS: oxyCODONE/APAP 7.5/325 1 TAB TABLET PO ×5 (04:57→19:25)
[2017-08-30 05:13] LABS: HEMATOCRIT 39.8 % (36.0-47.0); HEMOGLOBIN 13.3 g/dL (12.0-15.5); MEAN CORPUSCULAR HGB CONC 33 g/dL (31-37)
[2017-08-30 05:19] LABS: INR 1.1 (0.8-1.1); PROTHROMBIN TIME PATIENT 13.9 SEC (11.7-14.0)
[2017-08-30] MEDS ORDERED: MAGNESIUM HYDROXIDE 2,400 MG/30 ML ORAL.SUSP. PO (06:00)
[2017-08-30 06:25] LABS: POC GLUCOSE 113 mg/dL (70-99)
[2017-08-30] MEDS: INSULIN LISPRO 300 UNITS/3 ML INSULN.PEN. SQ ×3 (08:00→17:00)
[2017-08-30] MEDS: SENNOSIDES/DOCUSATE 8.6/50MG TABLET. PO (08:16)
[2017-08-30] MEDS: FERROUS SULFATE 325 MG TABLET. PO ×2 (08:16→17:41)
[2017-08-30] MEDS: MULTIVITAMIN with MINERAL TABLET. PO (08:16)
[2017-08-30] MEDS: CELECOXIB 200 MG CAPSULE. PO ×2 (08:16→20:40)
[2017-08-30] MEDS: clonazePAM 1 MG TABLET PO ×2 (08:17→20:40)
[2017-08-30] MEDS: metFORMIN 500 MG TABLET PO ×2 (08:17→17:41)
[2017-08-30] MEDS: CYCLOBENZAPRINE 10 MG TABLET. PO ×3 (08:17→20:40)
[2017-08-30] MEDS: amLODIPine BESYLATE 10 MG TABLET PO (08:20)
[2017-08-30] MEDS: LOSARTAN POTASSIUM 50 MG TABLET. PO (08:21)
[2017-08-30] MEDS: SPIRONOLACTONE 25 MG TABLET PO (08:22)
[2017-08-30] MEDS: INSULIN GLARGINE 300 UNITS/3 ML INSULN.PEN. SQ (08:30)
[2017-08-30] MEDS: WARFARIN 5 MG TABLET. PO (15:30)
[2017-08-30] MEDS ORDERED: BISACODYL 10 MG SUPP.RECT. PR (16:00)
[2017-08-30] MEDS: ATORVASTATIN CALCIUM 20 MG TABLET PO (20:40)
[2017-08-31] MEDS: oxyCODONE/APAP 7.5/325 1 TAB TABLET PO ×5 (00:42→20:07)
[2017-08-31 04:00] LABS: POC GLUCOSE 89 mg/dL (70-99)
[2017-08-31 04:44] LABS: HEMATOCRIT 38.1 % (36.0-47.0); HEMOGLOBIN 13.1 g/dL (12.0-15.5); MEAN CORPUSCULAR HGB CONC 34 g/dL (31-37)
[2017-08-31 05:03] LABS: INR 1.5 (0.8-1.1); PROTHROMBIN TIME PATIENT 17.3 SEC (11.7-14.0)
[2017-08-31 07:15] LABS: POC GLUCOSE 78 mg/dL (70-99)
[2017-08-31] MEDS: clonazePAM 1 MG TABLET PO ×2 (07:51→20:56)
[2017-08-31] MEDS: MULTIVITAMIN with MINERAL TABLET. PO (07:51)
[2017-08-31] MEDS: CYCLOBENZAPRINE 10 MG TABLET. PO ×3 (07:51→20:56)
[2017-08-31] MEDS: FERROUS SULFATE 325 MG TABLET. PO ×2 (07:51→17:00)
[2017-08-31] MEDS: SENNOSIDES/DOCUSATE 8.6/50MG TABLET. PO (07:51)
[2017-08-31] MEDS: metFORMIN 500 MG TABLET PO ×2 (07:51→17:00)
[2017-08-31] MEDS: CELECOXIB 200 MG CAPSULE. PO ×2 (07:51→20:56)
[2017-08-31] MEDS: SPIRONOLACTONE 25 MG TABLET PO (07:53)
[2017-08-31] MEDS: amLODIPine BESYLATE 10 MG TABLET PO (07:54)
[2017-08-31] MEDS: INSULIN LISPRO 300 UNITS/3 ML INSULN.PEN. SQ ×3 (07:55→17:00)
[2017-08-31 11:36] LABS: POC GLUCOSE 81 mg/dL (70-99)
[2017-08-31] MEDS: LOSARTAN POTASSIUM 50 MG TABLET. PO (12:30)
[2017-08-31] MEDS: INSULIN GLARGINE 300 UNITS/3 ML INSULN.PEN. SQ (12:33)
[2017-08-31 16:55] LABS: POC GLUCOSE 69 mg/dL (70-99)
[2017-08-31] MEDS ORDERED: WARFARIN 3 MG TABLET. PO (17:00)
[2017-08-31] MEDS: WARFARIN 3 MG TABLET. PO (17:00)
[2017-08-31 20:48] LABS: POC GLUCOSE 132 mg/dL (70-99)
[2017-08-31] MEDS: ATORVASTATIN CALCIUM 20 MG TABLET PO (20:56)
[2017-09-01] MEDS: oxyCODONE/APAP 7.5/325 1 TAB TABLET PO ×4 (00:29→11:08)
[2017-09-01 06:18] LABS: HEMATOCRIT 38.5 % (36.0-47.0); HEMOGLOBIN 13.2 g/dL (12.0-15.5); MEAN CORPUSCULAR HGB CONC 34 g/dL (31-37)
[2017-09-01 06:23] LABS: INR 1.4 (0.8-1.1); PROTHROMBIN TIME PATIENT 16.9 SEC (11.7-14.0)
[2017-09-01 06:35] LABS: POC GLUCOSE 87 mg/dL (70-99)
[2017-09-01] MEDS: INSULIN LISPRO 300 UNITS/3 ML INSULN.PEN. SQ (07:18)
[2017-09-01] MEDS: CYCLOBENZAPRINE 10 MG TABLET. PO (08:13)
[2017-09-01] MEDS: FERROUS SULFATE 325 MG TABLET. PO (08:13)
[2017-09-01] MEDS: clonazePAM 1 MG TABLET PO (08:13)
[2017-09-01] MEDS: SPIRONOLACTONE 25 MG TABLET PO (08:13)
[2017-09-01] MEDS: SENNOSIDES/DOCUSATE 8.6/50MG TABLET. PO (08:14)
[2017-09-01] MEDS: MULTIVITAMIN with MINERAL TABLET. PO (08:14)
[2017-09-01] MEDS: metFORMIN 500 MG TABLET PO (08:14)
[2017-09-01] MEDS: CELECOXIB 200 MG CAPSULE. PO (08:14)
[2017-09-01] MEDS: amLODIPine BESYLATE 10 MG TABLET PO (08:17)
[2017-09-01] MEDS: LOSARTAN POTASSIUM 50 MG TABLET. PO (08:18)
[2017-09-01] MEDS: INSULIN GLARGINE 300 UNITS/3 ML INSULN.PEN. SQ (08:21)
[2017-09-01] MEDS: WARFARIN 5 MG TABLET. PO (11:08)
== END 2017-09-01 12:15 | disposition home health service (06) | DRG 470 ==
LOC: OPSVCIP 07:51 → 4 SOUTHEST 12:35
PROVIDERS: Orthopaedic Surgery Sports Medicine
PROC: 0SRB06Z Replacement of Left Hip Joint with Oxidized Zirconium on Polyethylene Synthetic Substitute, Open Approach (ICD-10-PCS; principal; 2017-08-29 08:43)
DX: M16.12 Unilateral primary osteoarthritis, left hip (principal); E11.9 Type 2 diabetes mellitus without complications; I10 Essential (primary) hypertension; M21.379 Foot drop, unspecified foot; F17.210 Nicotine dependence, cigarettes, uncomplicated; J44.9 Chronic obstructive pulmonary disease, unspecified; Z85.038 Personal history of other malignant neoplasm of large intestine; Z98.51 Tubal ligation status; Z82.49 Family history of ischemic heart disease and other diseases of the circulatory system; Z83.3 Family history of diabetes mellitus; Z88.8 Allergy status to other drugs, medicaments and biological substances; Z91.041 Radiographic dye allergy status; Z79.899 Other long term (current) drug therapy
CPT/HCPCS: 36415; 72170; 82962; 85014; 85018; 85610; 85730; 86850; 86900; 86901; 88304; 88311; 94760; 97116-GP; 97150-GP; 97162-GP; 97166-GO; 97530-GP; 97535-GO; A7015; C1713; J0171; J0360; J0690; J1100; J1815; J1885; J2250; J2270; J2370; J2405; J2704; J2710; J2795; J3010; J3490; J7030; J7120

== ENCOUNTER → 2018-05-11 | Outpatient (CLI) | payer MEDICARE, MEDICAID ==
[2017-09-01 11:16] VITALS: BP 135/82
[~2018-05-11] MED LIST changes: +ALBU2.5V8 IH; +AMLO10TA6; +ATOR10TA60 PO; +ATOR40TA59; +BUDE10.2; +BUPR300T4; +CLON0.1T PO; +CLON1TAB11; +CYCL10TA2 PO; -DEXAMETHASONE SOD PHOS 20 MG/5 ML VIAL.; +DILT60CA PO; +FERR325T14 PO; +FLUT1DIS3 IH; +GLIP5TAB10 PO; -GLYCOPYRROLATE 1 MG/5 ML VIAL.; +HYDR-3164 PO; -HYDROcodone/APAP 7.5/325MG 1 TAB TABLET PO; +INSU100I27 SQ; +INSU100V13 SQ; +IPRA0.2S5 IH; -IV RINGERS,LACTATED 1000ML 1,000 ML IV; -LIDOCAINE 1% PF 2 ML VIAL. ID; -LIDOCAINE 2% PF Vial for OR 5 ML VIAL.; +LISI1TAB5 PO; +LORA1TAB PO; +LOSA100T14; +MELO15TA6 PO; -MELOXICAM 7.5 MG TABLET PO; +METF500T16; +METF500T16 PO; +METH4TAB2 PO; -MIDAZOLAM HCL/PF 2 MG/2 ML VIAL.; +MOME13HF IH; -MORPHINE SULFATE 4 MG/ML DISP.SYRIN. IV; +NAPR-683 PO; +NAPR500T8 PO; -NEOSTIGMINE METHYLSULFATE 5 MG/5 ML SYRINGE.; -ONDANSETRON PF 4 MG/2 ML VIAL.; -ONDANSETRON PF 4 MG/2 ML VIAL. IV; +OXYC1TAB15 PO; +OXYC1TAB19 PO; +OXYC1TAB7 PO; -PHENYLEPHRINE in 0.9% NACL PF 1 MG/10 ML SYRINGE. IV; +PIOG15TA42 PO; +PRED1TAB3 PO; -PROCHLORPERAZINE 10 MG/2 ML VIAL. IV; -PROPOFOL 20 ML IV; -ROCURONIUM 50 MG/5 ML VIAL.; +SENN1TAB8 PO; -SEVOFLURANE 61 TO 120 MINUTES. IH; +SPIR25TA5; +SULF1TAB24 PO; +VENTOLIN HFA18 GM INH; +WARF-31 PO; +WARF-78 PO; +WARF4TAB68 PO; -fentaNYL PF VIAL 100 MCG/2 ML VIAL; -fentaNYL PF VIAL 100 MCG/2 ML VIAL IV
--- NOTE | 2018-05-11 10:48 | KCIC ---
RENAL COMPLETE BILATERAL History: Right renal cyst, previous left nephrectomy Comparison: July 30, 2014 Findings: Multiple sonographic images of the right kidney retroperitoneal structures are submitted. Right kidney measures 14.3 x 5.5 x 5.5 cm, new right renal pelviectasis. There has been left nephrectomy. Abdominal aortic caliber at the mid segment is within normal limits at 1.8 cm, otherwise abdominal aorta obscured by bowel gas. There is limited segmental visualization of the proximal inferior vena cava, otherwise obscured by bowel gas. Urinary bladder is not well visualized as patient recently voided. Right ureteral jet is not demonstrated during exam. No discrete renal lesion is demonstrated. Impression: 1. There is presumable compensatory hypertrophy of the right kidney as there has been left nephrectomy. There is new right renal pelviectasis. Electronically signed by: Sourav Marin MD (05/11/2018 10:43 AM) [facility]
== END | disposition home or self-care (01) ==
LOC: KCIC US 09:27
PROVIDERS: ATTEND Internal Medicine
DX: N28.81 Hypertrophy of kidney (principal); Z90.5 Acquired absence of kidney
CPT/HCPCS: 76770

== ENCOUNTER → 2018-06-16 | Outpatient (CLI) | payer MEDICARE, MEDICAID ==
[2017-09-01 11:16] VITALS: BP 135/82
[~2018-06-16] MED LIST changes: -AMLO10TA6; +AMLO10TA8; +METO25TA4 PO; +SENN-161 PO; -SENN1TAB8 PO
--- NOTE | 2018-06-16 13:39 | KCIC ---
CT study of the abdomen without contrast Clinical indications: History of left nephrectomy. Renal cyst. History of colon cancer and appendix cancer. TECHNIQUE: Noncontrast helical CT scanning of the abdomen from the hemidiaphragms down to the iliac crests was performed. Without contrast, the sensitivity to detect organ pathology and GI tract pathology is decreased. PQRS compliance Statement One or more of the following individualized dose reduction techniques were utilized for this study: 1. Automated exposure control 2. Adjustment of the mA and/or kV according to patient size 3. Use of iterative reconstruction technique COMPARISON: CT study of the abdomen dated April 07, 2007. FINDINGS: The liver and spleen and pancreas are homogeneous in appearance on this noncontrast study. The gallbladder is normal and no extrahepatic biliary ductal dilatation is seen. No adrenal mass is evident. The left kidney is surgically absent. No fluid collection or soft tissue mass is seen within the left renal bed. No renal mass is seen on this noncontrast study. No right renal stone or right hydronephrosis or proximal right hydroureter is seen. No obstructive bowel pattern is evident. No free air or free fluid or mesenteric edema is seen. No focal aneurysmal dilatation of the abdominal aorta is seen. No enlarged abdominal lymphadenopathy is seen. No lung base consolidation is evident. No lytic process is seen. Umbilical hernia is seen containing only fat and no inflammatory change is seen. IMPRESSION: No acute abnormality of the abdomen. Electronically signed by: Jose Root MD (06/16/2018 1:36 PM) [facility]
== END | disposition home or self-care (01) ==
LOC: KCIC CT 09:24
PROVIDERS: ATTEND Internal Medicine
DX: N28.1 Cyst of kidney, acquired (principal); I10 Essential (primary) hypertension; E11.9 Type 2 diabetes mellitus without complications; J44.9 Chronic obstructive pulmonary disease, unspecified; Z87.891 Personal history of nicotine dependence
CPT/HCPCS: 74150

== ENCOUNTER 2018-08-04 20:08 | Emergency (ER) | payer MEDICARE, MEDICAID ==
[~2018-08-04] VITALS: Ht 167.6 cm; Wt 108.9 kg
[~2018-08-04 20:08] MED LIST changes: -METO25TA4 PO
[2018-08-04] MEDS ORDERED: IV NORMAL SALINE 1000ML BAG 1,000 ML IV ONE ×2 (20:30→21:15)
[2018-08-04 20:31] LABS: BASO # 0.1 x10^3/uL (0.0-0.2); BASO % 1 % (0-3); EOS # 0.2 x10^3/uL (0.0-0.7); EOS % 2 % (0-3); HEMATOCRIT 44.7 % (36.0-47.0); HEMOGLOBIN 15.2 g/dL (12.0-15.5); LYMPH # 2.7 x10^3/uL (1.0-4.8); LYMPH % 26 % (24-48); MEAN CORPUSCULAR HEMOGLOBIN 31 pg (25-35); MEAN CORPUSCULAR HGB CONC 34 g/dL (31-37); MEAN CORPUSCULAR VOLUME 90 fL (79-100); MONO # 0.4 x10^3/uL (0.0-1.1); MONO % 4 % (0-9); NEUT # 7.1 x10^3uL (1.8-7.7); NEUT % 67 % (31-73); PLATELET COUNT 259 x10^3/uL (140-400); RED BLOOD COUNT 4.95 x10^6/uL (3.50-5.40); WHITE BLOOD COUNT 10.6 x10^3/uL (4.0-11.0)
[2018-08-04 20:33] LABS: BILIRUBIN,URINE NEGATIVE (NEG); CLARITY,URINE CLEAR; COLOR,URINE YELLOW; NITRITE,URINE NEGATIVE (NEG); PROTEIN,URINE NEGATIVE (NEG-TRACE); UROBILINOGEN,URINE 0.2 mg/dL (0.2 mg/dL)
[2018-08-04 20:35] LABS: SQUAMOUS EPITHELIAL CELL,UR MOD /LPF
[2018-08-04 20:36] LABS: BACTERIA,URINE FEW /HPF (0-FEW); RBC,URINE 0 /HPF (0-2); WBC,URINE OCC /HPF (0-4); YEAST,URINE PRESENT /HPF
[2018-08-04] MEDS ORDERED: INSULIN REGULAR 100 UNIT/ML 3ML VIAL. SQ ONE (20:45)
[2018-08-04 21:00] LABS: ALBUMIN 3.6 g/dL (3.4-5.0); CALCIUM 9.2 mg/dL (8.5-10.1); CREATININE 1.2 mg/dL (0.6-1.0); GFR 46.3; MAGNESIUM 1.9 mg/dL (1.8-2.4); POTASSIUM 4.1 mmol/L (3.5-5.1); TOTAL BILIRUBIN 0.4 mg/dL (0.2-1.0); TOTAL PROTEIN 7.1 g/dL (6.4-8.2)
--- NOTE | 2018-08-05 00:30 | PHYS DOC ---
Past Medical History Past Medical History: Anxiety, Arthritis, Cancer, COPD, Diabetes-Type II, High Cholesterol, Hypertension Additional Past Medical Histor: colon ca Past Surgical History: Appendectomy Additional Past Surgical Histo: nephrectomy, uterine ablation, hernia, colon resection Alcohol Use: Occasionally Drug Use: None Adult General Chief Complaint Chief Complaint: BLOOD SUGAR PROBLEM HPI HPI Patient is a 57 year old female who presents with concerns for blood sugar problems. Patient states that over the past couple days she notes that she was pain more often and therefore decided check her blood sugar today. When she used her meter check her blood sugar read high and therefore she decided to be evaluated emergency department. Patient denies any chest pain, palpitations, or dizziness. She does admit to not taking her metformin as prescribed. Additionally patient admits to the last time she checked her blood sugar was in April. Review of Systems Review of Systems Constitutional: Denies fever or chills Eyes: Denies change in visual acuity, redness HENT: Denies nasal congestion or sore throat Respiratory: Denies cough or shortness of breath Cardiovascular: Denies chest pain or palpitations GI: Denies abdominal pain, nausea, vomiting : Denies dysuria or hematuria Musculoskeletal: Denies back pain or joint pain Integument: Denies rash or skin lesions Neurologic: Denies headache or sensory changes Endocrine: Reports polyuria and polydipsia Complete systems were reviewed and found to be within normal limits, except as documented in this note. Current Medications Current Medications Current Medications Medications (Trade) Dose Ordered Sig/Prieto Start Time Stop Time Status Last Admin Dose Admin Fluconazole (Diflucan) 200 mg 1X ONCE 08/05/18 00:45 08/05/18 00:46 DC 08/05/18 00:46 200 MG Insulin Human Regular (HumuLIN R VIAL) 14 unit 1X ONCE 08/04/18 20:45 08/04/18 20:46 DC 08/04/18 20:58 14 UNIT Sodium Chloride 1,000 ml @ 1,000 mls/hr 1X ONCE 08/04/18 21:15 08/04/18 22:14 DC 08/04/18 21:34 1,000 MLS/HR Allergies Allergies Allergies Coded Allergies Type Severity Reaction Last Updated Verified RODOLFO Inhibitors Allergy Severe Anaphylaxis 06/27/17 Yes Iodinated Contrast- Oral and IV Dye Allergy Severe ANAPHYLAXIS 06/27/17 Yes nickel Allergy Severe Unknown 08/28/17 Yes shellfish derived Allergy Severe Anaphylaxis 06/27/17 Yes Physical Exam Physical Exam Constitutional: No acute distress, non-toxic appearance. HENT: Normocephalic, atraumatic Eyes: EOMI, conjunctiva normal Neck: Normal range of motion, supple Cardiovascular:Heart rate regular rhythm, no murmur Lungs & Thorax: Bilateral breath sounds clear to auscultation Abdomen: Bowel sounds normal, soft, no tenderness Skin: Warm, dry, no erythema, no rash. Back: No tenderness, no CVA tenderness. Extremities: No cyanosis, no clubbing, Neurologic: Alert and oriented X 3, normal motor function, no focal deficits noted. Psychologic: Affect normal, mood normal. Current Patient Data Vital Signs Vital Signs Date Time Temp Pulse Resp B/P (MAP) Pulse Ox O2 Delivery O2 Flow Rate FiO2 08/05/18 01:31 91 16 153/88 (109) 95 Room Air 08/04/18 20:28 98.1 98.1 Lab Values Laboratory Tests Test 08/04/18 20:20 08/04/18 20:23 08/05/18 00:48 Urine Collection Type Unknown Urine Color Yellow Urine Clarity Clear Urine pH 6.0 Urine Specific [place] >=1.030 Urine Protein Negative mg/dL (NEG-TRACE) Urine Glucose (UA) >=1000 mg/dL (NEG) Urine Ketones (Stick) Negative mg/dL (NEG) Urine Blood Negative (NEG) Urine Nitrite Negative (NEG) Urine Bilirubin Negative (NEG) Urine Urobilinogen Dipstick 0.2 mg/dL (0.2 mg/dL) Urine Leukocyte Esterase Negative (NEG) Urine RBC 0 /HPF (0-2) Urine WBC Occ /HPF (0-4) Urine Squamous Epithelial Cells Mod /LPF Urine Bacteria Few /HPF (0-FEW) Urine Yeast Present /HPF White Blood Count 10.6 x10^3/uL (4.0-11.0) Red Blood Count 4.95 x10^6/uL (3.50-5.40) Hemoglobin 15.2 g/dL (12.0-15.5) Hematocrit 44.7 % (36.0-47.0) Mean Corpuscular Volume 90 fL (79-100) Mean Corpuscular Hemoglobin 31 pg (25-35) Mean Corpuscular Hemoglobin Concent 34 g/dL (31-37) Red Cell Distribution Width 13.0 % (11.5-14.5) Platelet Count 259 x10^3/uL (140-400) Neutrophils (%) (Auto) 67 % (31-73) Lymphocytes (%) (Auto) 26 % (24-48) Monocytes (%) (Auto) 4 % (0-9) Eosinophils (%) (Auto) 2 % (0-3) Basophils (%) (Auto) 1 % (0-3) Neutrophils # (Auto) 7.1 x10^3uL (1.8-7.7) Lymphocytes # (Auto) 2.7 x10^3/uL (1.0-4.8) Monocytes # (Auto) 0.4 x10^3/uL (0.0-1.1) Eosinophils # (Auto) 0.2 x10^3/uL (0.0-0.7) Basophils # (Auto) 0.1 x10^3/uL (0.0-0.2) Sodium Level 130 mmol/L (136-145) L Potassium Level 4.1 mmol/L (3.5-5.1) Chloride Level 93 mmol/L (98-107) L Carbon Dioxide Level 25 mmol/L (21-32) Anion Gap 12 (6-14) Blood Urea Nitrogen 14 mg/dL (7-20) Creatinine 1.2 mg/dL (0.6-1.0) H Estimated GFR (Cockcroft-Gault) 46.3 BUN/Creatinine Ratio 12 (6-20) Glucose Level 696 mg/dL (70-99) *H Calcium Level 9.2 mg/dL (8.5-10.1) Magnesium Level 1.9 mg/dL (1.8-2.4) Total Bilirubin 0.4 mg/dL (0.2-1.0) Aspartate Amino Transferase (AST) 16 U/L (15-37) Alanine Aminotransferase (ALT) 26 U/L (14-59) Alkaline Phosphatase 148 U/L (46-116) H Total Protein 7.1 g/dL (6.4-8.2) Albumin 3.6 g/dL (3.4-5.0) Albumin/Globulin Ratio 1.0 (1.0-1.7) Acetone Level Neg (NEG) Glucose (Fingerstick) 274 mg/dL (70-99) H Laboratory Tests 08/04/18 20:23 Laboratory Tests 08/04/18 20:23 EKG EKG [] Radiology/Procedures Radiology/Procedures [] Course & Med Decision Making Course & Med Decision Making 57-year-old female presenting to the emergency Department due to concerns of high blood sugar. Patient admits to being noncompliant with checking her sugars as well as taking her prescribed metformin. Last on patient took her own blood sugar before today was in April. She admits to having polyuria and polydipsia over the past couple days. Labs are obtained and posted to chart. Symptomatic treatment provided with interval improvement. Sugar was 696 upon arrival. 14 units of insulin provided. Acetone was negative. No ketones in urine. Repeat blood sugar was 274.Patient stable for discharge with outpatient follow-up with PCP. Discussed findings and plan with patient and family, who acknowledge understanding and agreement. Dragon Disclaimer Dragon Disclaimer This electronic medical record was generated, in whole or in part, using a voice recognition dictation system. Departure Departure Impression: Primary Impression: Hyperglycemia Disposition: 01 HOME, SELF-CARE Condition: STABLE Referrals: DINO LAW MD (PCP) Patient Instructions: 1800 Calorie Diet for Diabetes Meal Planning, Hyperglycemia, [id number] Additional Instructions: Please take your diabetes medications as prescribed and watch your diet JOSHUA VELASQUEZ DO Aug 05, 2018 00:30
[2018-08-05] MEDS ORDERED: FLUCONAZOLE 100 MG TABLET. PO ONE (00:45)
[2018-08-05 01:31] VITALS: BP 153/88
== END 2018-08-05 01:33 | disposition home or self-care (01) ==
LOC: ER 20:08
DX: E11.65 Type 2 diabetes mellitus with hyperglycemia (principal); E78.00 Pure hypercholesterolemia, unspecified; I10 Essential (primary) hypertension; J44.9 Chronic obstructive pulmonary disease, unspecified; Z79.4 Long term (current) use of insulin; Z91.013 Allergy to seafood; Z91.041 Radiographic dye allergy status; Z88.8 Allergy status to other drugs, medicaments and biological substances
CPT/HCPCS: 36415; 80053; 81001; 82010; 82962; 83735; 83930; 85025; 96360; 96361; 96372; 99285; J1815; J7030; 99284-25

== ENCOUNTER 2018-08-27 16:12 | Inpatient (IN) | payer OTHER, MEDICAID ==
[~2018-08-27] VITALS: Ht 170.2 cm; Wt 106.1 kg
[2018-08-27] VITALS (11 sets, daily range): BP systolic 101–152; BP diastolic 54–74
[2018-08-27 16:32] LABS: BASO # 0.1 x10^3/uL (0.0-0.2); BASO % 1 % (0-3); EOS # 0.3 x10^3/uL (0.0-0.7); EOS % 2 % (0-3); HEMATOCRIT 48.7 % (36.0-47.0); HEMOGLOBIN 16.4 g/dL (12.0-15.5); LYMPH # 3.1 x10^3/uL (1.0-4.8); LYMPH % 25 % (24-48); MEAN CORPUSCULAR HEMOGLOBIN 30 pg (25-35); MEAN CORPUSCULAR HGB CONC 34 g/dL (31-37); MEAN CORPUSCULAR VOLUME 90 fL (79-100); MONO # 0.5 x10^3/uL (0.0-1.1); MONO % 4 % (0-9); NEUT # 8.4 x10^3uL (1.8-7.7); NEUT % 67 % (31-73); PLATELET COUNT 308 x10^3/uL (140-400); RED BLOOD COUNT 5.44 x10^6/uL (3.50-5.40); RED CELL DISTRIBUTION WIDTH 12.8 % (11.5-14.5); WHITE BLOOD COUNT 12.5 x10^3/uL (4.0-11.0)
--- NOTE | 2018-08-27 16:37 | PHYS DOC ---
Past Medical History Past Medical History: Anxiety, Arthritis, Cancer, COPD, Diabetes-Type II, High Cholesterol, Hypertension Additional Past Medical Histor: colon ca Past Surgical History: Appendectomy Additional Past Surgical Histo: nephrectomy, uterine ablation, hernia, colon resection Smoking: Cigarettes, 1 Pack Per Day Alcohol Use: Occasionally Drug Use: None Adult General Chief Complaint Chief Complaint: CHEST PAIN HPI HPI 57-year-old female presents with report of left-sided chest pain with radiation to bilateral arms and into left jaw which started at 1100 today. Denies known trauma. Denies fever or chills. Denies cough. Patient does report some associated shortness of breath. Patient does have history of COPD. Cardiac risk factors include smoking, high blood pressure, high cholesterol, diabetes, and family history. Denies history or family history of PE/DVT. Review of Systems Review of Systems Constitutional: Denies fever or chills [] Eyes: Denies change in visual acuity, redness, or eye pain [] HENT: Denies nasal congestion or sore throat [] Respiratory: Denies cough; reports shortness of breath [] Cardiovascular: Reports chest pain; denies palpitations GI: Denies abdominal pain, nausea, vomiting, or diarrhea [] : Denies dysuria or hematuria [] Musculoskeletal: Denies back pain or joint pain [] Integument: Denies rash or skin lesions [] Neurologic: Denies headache, focal weakness or sensory changes [] Complete systems were reviewed and found to be within normal limits, except as documented in this note. Current Medications Current Medications Allergies Allergies Allergies Coded Allergies Type Severity Reaction Last Updated Verified RODOLFO Inhibitors Allergy Severe Anaphylaxis 06/27/17 Yes Iodinated Contrast- Oral and IV Dye Allergy Severe ANAPHYLAXIS 06/27/17 Yes shellfish derived Allergy Severe Anaphylaxis 06/27/17 Yes Physical Exam Physical Exam Constitutional: Well developed, well nourished, no acute distress, non-toxic appearance. [] HENT: Normocephalic, atraumatic Eyes: Conjunctiva normal, no discharge. [] Neck: Normal range of motion, no tenderness, supple Cardiovascular: Heart rate normal, regular rhythm Lungs & Thorax: Bilateral breath sounds clear to auscultation [] Abdomen: Soft, no tenderness Skin: Warm, dry, no erythema, no rash. [] Extremities: No tenderness, ROM intact, no edema. [] Neurologic: Alert and oriented X 3, no focal deficits noted. [] Psychologic: Affect normal, judgement normal, mood normal. [] Current Patient Data Vital Signs Vital Signs Date Time Temp Pulse Resp B/P (MAP) Pulse Ox O2 Delivery O2 Flow Rate FiO2 08/27/18 16:20 97.5 109 20 200/108 (138) 97 Room Air 97.5 Lab Values Laboratory Tests Test 08/27/18 16:13 08/27/18 16:23 D-Dimer (Melany) 0.44 ug/mlFEU (0.00-0.50) White Blood Count 12.5 x10^3/uL (4.0-11.0) H Red Blood Count 5.44 x10^6/uL (3.50-5.40) H Hemoglobin 16.4 g/dL (12.0-15.5) H Hematocrit 48.7 % (36.0-47.0) H Mean Corpuscular Volume 90 fL (79-100) Mean Corpuscular Hemoglobin 30 pg (25-35) Mean Corpuscular Hemoglobin Concent 34 g/dL (31-37) Red Cell Distribution Width 12.8 % (11.5-14.5) Platelet Count 308 x10^3/uL (140-400) Neutrophils (%) (Auto) 67 % (31-73) Lymphocytes (%) (Auto) 25 % (24-48) Monocytes (%) (Auto) 4 % (0-9) Eosinophils (%) (Auto) 2 % (0-3) Basophils (%) (Auto) 1 % (0-3) Neutrophils # (Auto) 8.4 x10^3uL (1.8-7.7) H Lymphocytes # (Auto) 3.1 x10^3/uL (1.0-4.8) Monocytes # (Auto) 0.5 x10^3/uL (0.0-1.1) Eosinophils # (Auto) 0.3 x10^3/uL (0.0-0.7) Basophils # (Auto) 0.1 x10^3/uL (0.0-0.2) Prothrombin Time 11.8 SEC (11.7-14.0) Prothrombin Time INR 0.9 (0.8-1.1) Sodium Level 139 mmol/L (136-145) Potassium Level 3.8 mmol/L (3.5-5.1) Chloride Level 100 mmol/L (98-107) Carbon Dioxide Level 27 mmol/L (21-32) Anion Gap 12 (6-14) Blood Urea Nitrogen 13 mg/dL (7-20) Creatinine 1.1 mg/dL (0.6-1.0) H Estimated GFR (Cockcroft-Gault) 51.2 BUN/Creatinine Ratio 12 (6-20) Glucose Level 182 mg/dL (70-99) H Calcium Level 9.7 mg/dL (8.5-10.1) Magnesium Level 1.9 mg/dL (1.8-2.4) Total Bilirubin 0.3 mg/dL (0.2-1.0) Aspartate Amino Transferase (AST) 19 U/L (15-37) Alanine Aminotransferase (ALT) 28 U/L (14-59) Alkaline Phosphatase 126 U/L (46-116) H Creatine Kinase 62 U/L (26-192) Creatine Kinase MB (Mass) 1.0 ng/mL (0.0-3.6) Creatine Kinase MB Relative Index % (0-4) Troponin I Quantitative 0.064 ng/mL (0.000-0.055) AC-Peo-G-Type Natriuretic Peptide 64 pg/mL (0-124) Total Protein 7.7 g/dL (6.4-8.2) Albumin 3.6 g/dL (3.4-5.0) Albumin/Globulin Ratio 0.9 (1.0-1.7) L Lipase 167 U/L (73-393) Laboratory Tests 08/27/18 16:23 Laboratory Tests 08/27/18 16:23 EKG EKG @1618 Sinus tachycardia at 110bpm, NO ST elevation, occasional PVC, incomplete RBBB Radiology/Procedures Radiology/Procedures PROCEDURE: CHEST PA & LATERAL CHEST PA LATERAL History: Chest pain.. Comparison: 06/13/2017 image but no report. Heart size is stable. No evidence of pneumothorax. No consolidating infiltrate.. No evidence of pleural effusion. There is air trapping compatible with emphysema. IMPRESSION: No consolidating infiltrate. Electronically signed by: Franko Ball MD (08/27/2018 5:50 PM) [facility] Course & Med Decision Making Course & Med Decision Making Pertinent Labs and Imaging studies reviewed. (See chart for details) Patient presents with report of left-sided chest pain with radiation to bilateral arms and up into her jaw. Patient does report some associated shortness of breath. No leg swelling or calf tenderness appreciated. No history of DVT/PE. EKG stable. Labs obtained and posted to chart. Initial troponin slightly elevated. Aspirin provided. Serial troponins also ordered. Chest x-ray without acute process. HEART score 5. Patient requiring admission for further evaluation and treatment. Discussed with Dr. Rebolledo (hospitalist) who is in agreement with admission. Discussed case with (cardiology) who is in agreement with consultation. Discussed findings and plan with patient and family, who acknowledge understanding and agreement. Dragon Disclaimer Dragon Disclaimer This electronic medical record was generated, in whole or in part, using a voice recognition dictation system. Departure Departure Impression: Primary Impression: Chest pain Additional Impression: Elevated troponin Disposition: ADMITTED INPATIENT Admitting Physician: Peggy Rebolledo Condition: STABLE Referrals: DINO LAW MD (PCP) The HEART Score for CP Pts HEART Score for Chest Pain: HEART Score for Chest Pain Response (Comments) Value History Moderately Suspicious 1 ECG Normal 0 Age >45 - < 65 1 Risk Factors >3 Risk Factors or Hx CAD 2 Troponin >1-<3x Normal Limit 1 Total 5 Risk Factors: Risk Factors: DM, Current or recent (<one month) smoker, HTN, HLP, family history of CAD, obesity. Risk Scores: Score 0 - 3: 2.5% MACE over next 6 weeks - Discharge Home Score 4 - 6: 20.3% MACE over next 6 weeks - Admit for Clinical Observation Score 7 - 10: 72.7% MACE over next 6 weeks - Early Invasive Strategies Critical Care Time Critical care time was 30 minutes which includes time at bedside, spent in discussion of patient's care with specialists and/or family members, with interpretation of laboratory and/or radiological studies and is exclusive of procedures. Problem Qualifiers Primary Impression: Chest pain Chest pain type: unspecified Qualified Codes: R07.9 - Chest pain, unspecified FRANKO VELASQUEZ DO August 27, 2018 16:37
[2018-08-27 16:40] LABS: CALCIUM 9.7 mg/dL (8.5-10.1); CREATININE 1.1 mg/dL (0.6-1.0); GFR 51.2; POTASSIUM 3.8 mmol/L (3.5-5.1)
[2018-08-27 16:45] LABS: ALBUMIN 3.6 g/dL (3.4-5.0); ALBUMIN/GLOBULIN RATIO 0.9 (1.0-1.7); MAGNESIUM 1.9 mg/dL (1.8-2.4); TOTAL BILIRUBIN 0.3 mg/dL (0.2-1.0); TOTAL PROTEIN 7.7 g/dL (6.4-8.2)
[2018-08-27] MEDS ORDERED: fentaNYL PF VIAL 100 MCG/2 ML VIAL IV ONE (16:45)
[2018-08-27] MEDS ORDERED: IV NORMAL SALINE 1000ML BAG 1,000 ML IV ONE (16:45)
[2018-08-27] MEDS ORDERED: fentaNYL PF VIAL 100 MCG/2 ML VIAL IV PRN (16:45)
[2018-08-27] MEDS ORDERED: ASPIRIN 325 MG TABLET PO ONE (16:45)
[2018-08-27] MEDS ORDERED: ONDANSETRON PF 4 MG/2 ML VIAL. IV PRN (16:45)
[2018-08-27] MEDS ORDERED: DEXTROSE 50% 25 GM / 50ML DISP.SYRIN. IV PRN (16:45)
[2018-08-27 16:49] LABS: PROTHROMBIN TIME PATIENT 11.8 SEC (11.7-14.0)
[2018-08-27 16:58] LABS: CREATINE KINASE 62 U/L (26-192)
[2018-08-27] MEDS: INSULIN LISPRO 300 UNITS/3 ML INSULN.PEN. SQ SCH (17:00)
--- NOTE | 2018-08-27 17:53 | RAD ---
CHEST PA LATERAL History: Chest pain.. Comparison: 06/13/2017 image but no report. Heart size is stable. No evidence of pneumothorax. No consolidating infiltrate.. No evidence of pleural effusion. There is air trapping compatible with emphysema. IMPRESSION: No consolidating infiltrate. Electronically signed by: Franko Ball MD (08/27/2018 5:50 PM) [facility]
--- NOTE | 2018-08-27 18:01 | PDOC1 ---
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 (2) Cellulitis of left forearm (3) Back pain (4) Fall (5) Incontinent of urine (6) Hyperosmolar non-ketotic state in patient with type 2 diabetes mellitus (7) Degenerative joint disease of right hip (8) Degenerative joint disease of left hip (9) Hyperglycemia (10) Chest pain (11) Obstructed umbilical hernia (12) BODY MASS INDEX 40.0-44.9, ADULT (13) Acute posthemorrhagic anemia Chief Complain: Chest pain or jaw pain arm pain COPD History of Present Illness: HPI: Patient is a 58-year-old female who continues to smoke and has known COPD She presented with chest pain Her mom told her she needed to come to the hospital because the pain was radiating into her arm and her jaw Indeed she does have hypertension and coronary disease ran in her family not to mention her tobacco issues I discussed case with ER physician were going to admit the patient and consult cardiology and pulmonary She we note that she rates her symptoms at 10 out 10 she has associated weakness has been occurring off and on for several days and home meds but did not help She describes as agonizing Past Medical/Surgical History: PMH/PSH: Past Medical History: Anxiety, Arthritis, Cancer, COPD, Diabetes-Type II, High Cholesterol, Hypertension Additional Past Medical Histor: colon ca Past Surgical History: Appendectomy Additional Past Surgical Histo: nephrectomy, uterine ablation, hernia, colon resection Allergies: Allergies: Coded Allergies: RODOLFO Inhibitors (Verified Allergy, Severe, Anaphylaxis, 06/27/17) Iodinated Contrast- Oral and IV Dye (Verified Allergy, Severe, ANAPHYLAXIS, 06/27/17) nickel (Verified Allergy, Severe, Unknown, 08/28/17) STATES IS ALLERGIC TO ALL KINDS OF METAL/ swelling shellfish derived (Verified Allergy, Severe, Anaphylaxis, 06/27/17) Family History: Family History: CAD Social History: Social Hisoty: She still smokes no drinking or drugs Current Medications: Current Medications Current Medications Aspirin (Magdiel Aspirin) 325 mg 1X ONCE PO Last administered on 08/27/18at 16:44; Start 08/27/18 at 16:45; Stop 08/27/18 at 16:46; Status DC Sodium Chloride 1,000 ml @ 1,000 mls/hr 1X ONCE IV Last administered on 08/27/18at 16:44; Start 08/27/18 at 16:45; Stop 08/27/18 at 17:44; Status DC Fentanyl Citrate (Fentanyl 2ml Vial) 50 mcg 1X ONCE IV Last administered on 08/27/18at 16:44; Start 08/27/18 at 16:45; Stop 08/27/18 at 16:46; Status DC Ondansetron HCl (Zofran) 4 mg PRN Q8HRS PRN IV NAUSEA/VOMITING; Start 08/27/18 at 16:45; Stop 08/28/18 at 16:44 Fentanyl Citrate (Fentanyl 2ml Vial) 50 mcg PRN Q2HRS PRN IV PAIN Last administered on 08/27/18at 17:48; Start 08/27/18 at 16:45 Insulin Human Lispro (HumaLOG) 0-5 UNITS TIDWMEALS SQ ; Start 08/27/18 at 17:00 Dextrose (Dextrose 50%-Water Syringe) 12.5 gm PRN Q15MIN PRN IV SEE COMMENTS; Start 08/27/18 at 16:45 Active Scripts Active Cyclobenzaprine Hcl 10 Mg Tablet 10 Mg PO TID Reported Warfarin Sodium 5 Mg Tablet 1 Tab PO DAILYBFRSUP do NOT take this today take this starting tomorrow on Tuesday with supper pharmacist will call every tuesday follow the pharmacist instructions [facility] will monitor and manage PT/INR Senna-Docusate Sodium Tablet (Sennosides/Docusate Sodium) 1 Each Tablet 1 Each PO 30 Days take daily while on coumadin and iron Ferrous Sulfate 325 Mg Tablet 1 Tab PO DAILY take as long as on coumadin Ventolin Hfa Inhaler (Albuterol Sulfate) 18 Gm Hfa.aer.ad 2 Puff INH Q4HRS Levemir (Insulin Detemir) 100 Unit/1 Ml Vial 30 Unit SQ A.M. last dose this am next dose tomorrow am Percocet 7.5-325 Mg Tablet (Oxycodone/Acetaminophen) 1 Each Tablet 1 Tab PO Q3HRS PRN last dose next dose Symbicort 160-4.5 Mcg Inhaler (Budesonide/Formoterol Fumarate) 10.2 Gm Hfa.aer.ad 2 BID Amlodipine Besylate 10 Mg Tablet 10 DAILY laast dose this am next dose tomorrow Clonazepam 1 Mg Tablet 1 BID last dose this am next dose this night Atorvastatin Calcium 40 Mg Tablet 40 DAILY last dose last night next dose tonight Spironolactone 25 Mg Tablet 25 DAILY lasty dose this am next dose tomorrow am Metformin Hcl 500 Mg Tablet 500 BID last dose this am next dose with suppeer Losartan Potassium 100 Mg Tablet 100 DAILY last dose this am next dose tomorrow am ROS: Review of Systems Review of System REVIEW OF SYSTEMS: GENERAL: Denies weakness SKIN: No bruising, hair changes or rashes. EYES: No blurred, double or loss of vision. NOSE AND THROAT: No history of nosebleeds, hoarseness or sore throat. HEART: She complains of chest pain LUNGS: Denies cough, hemoptysis, wheezing or shortness of breath. GASTROINTESTINAL: Denies changes in appetite, nausea, vomiting, diarrhea or constipation. GENITOURINARY: No history of frequency, urgency, hesitancy or nocturia. NEUROLOGIC: Denies history of numbness, tingling, tremor or weakness. PSYCHIATRIC: No history of panic, anxiety or depression. ENDOCRINE: No history of heat or cold intolerance, polyuria or polydipsia. EXTREMITIES: Denies muscle weakness, joint pain, pain on walking or stiffness. Physical Exam: Vital Signs: Vital Signs Date Time Temp Pulse Resp B/P (MAP) Pulse Ox O2 Delivery O2 Flow Rate FiO2 08/27/18 17:48 18 08/27/18 17:25 100 167/89 (115) 96 Room Air 08/27/18 16:20 97.5 97.5 Physcial Exam: GEN.: No apparent distress. Alert and oriented. HEENT: Head is normocephalic, atraumatic NECK: Supple, no JVD LUNGS: Clear to auscultation without rhonchi or wheezing HEART: RRR, S1, S2 present. Peripheral pulses intact ABDOMEN: Soft, nontender. Positive bowel sounds no organomegaly EXTREMITIES: Without any cyanosis, clubbing, or edema. Pedal pulses intact NEUROLOGIC: Normal speech, normal tone. A&O x 3 PSYCHIATRIC: Normal affect, normal mood. Stable SKIN: No ulcerations or rashes VASCULAR: Good capillary refill Labs: Labs: Laboratory Tests Test 08/27/18 16:13 08/27/18 16:23 D-Dimer (Melany) 0.44 ug/mlFEU (0.00-0.50) White Blood Count 12.5 x10^3/uL (4.0-11.0) Red Blood Count 5.44 x10^6/uL (3.50-5.40) Hemoglobin 16.4 g/dL (12.0-15.5) Hematocrit 48.7 % (36.0-47.0) Mean Corpuscular Volume 90 fL (79-100) Mean Corpuscular Hemoglobin 30 pg (25-35) Mean Corpuscular Hemoglobin Concent 34 g/dL (31-37) Red Cell Distribution Width 12.8 % (11.5-14.5) Platelet Count 308 x10^3/uL (140-400) Neutrophils (%) (Auto) 67 % (31-73) Lymphocytes (%) (Auto) 25 % (24-48) Monocytes (%) (Auto) 4 % (0-9) Eosinophils (%) (Auto) 2 % (0-3) Basophils (%) (Auto) 1 % (0-3) Neutrophils # (Auto) 8.4 x10^3uL (1.8-7.7) Lymphocytes # (Auto) 3.1 x10^3/uL (1.0-4.8) Monocytes # (Auto) 0.5 x10^3/uL (0.0-1.1) Eosinophils # (Auto) 0.3 x10^3/uL (0.0-0.7) Basophils # (Auto) 0.1 x10^3/uL (0.0-0.2) Prothrombin Time 11.8 SEC (11.7-14.0) Prothromb Time International Ratio 0.9 (0.8-1.1) Sodium Level 139 mmol/L (136-145) Potassium Level 3.8 mmol/L (3.5-5.1) Chloride Level 100 mmol/L (98-107) Carbon Dioxide Level 27 mmol/L (21-32) Anion Gap 12 (6-14) Blood Urea Nitrogen 13 mg/dL (7-20) Creatinine 1.1 mg/dL (0.6-1.0) Estimated GFR (Cockcroft-Gault) 51.2 BUN/Creatinine Ratio 12 (6-20) Glucose Level 182 mg/dL (70-99) Calcium Level 9.7 mg/dL (8.5-10.1) Magnesium Level 1.9 mg/dL (1.8-2.4) Total Bilirubin 0.3 mg/dL (0.2-1.0) Aspartate Amino Transf (AST/SGOT) 19 U/L (15-37) Alanine Aminotransferase (ALT/SGPT) 28 U/L (14-59) Alkaline Phosphatase 126 U/L (46-116) Creatine Kinase 62 U/L (26-192) Creatine Kinase MB (Mass) 1.0 ng/mL (0.0-3.6) Creatine Kinase MB Relative Index % (0-4) Troponin I Quantitative 0.064 ng/mL (0.000-0.055) PK-Cre-I-Type Natriuretic Peptide 64 pg/mL (0-124) Total Protein 7.7 g/dL (6.4-8.2) Albumin 3.6 g/dL (3.4-5.0) Albumin/Globulin Ratio 0.9 (1.0-1.7) Lipase 167 U/L (73-393) Laboratory Tests Test 08/27/18 16:13 08/27/18 16:23 D-Dimer (Melany) 0.44 ug/mlFEU (0.00-0.50) White Blood Count 12.5 x10^3/uL (4.0-11.0) Red Blood Count 5.44 x10^6/uL (3.50-5.40) Hemoglobin 16.4 g/dL (12.0-15.5) Hematocrit 48.7 % (36.0-47.0) Mean Corpuscular Volume 90 fL (79-100) Mean Corpuscular Hemoglobin 30 pg (25-35) Mean Corpuscular Hemoglobin Concent 34 g/dL (31-37) Red Cell Distribution Width 12.8 % (11.5-14.5) Platelet Count 308 x10^3/uL (140-400) Neutrophils (%) (Auto) 67 % (31-73) Lymphocytes (%) (Auto) 25 % (24-48) Monocytes (%) (Auto) 4 % (0-9) Eosinophils (%) (Auto) 2 % (0-3) Basophils (%) (Auto) 1 % (0-3) Neutrophils # (Auto) 8.4 x10^3uL (1.8-7.7) Lymphocytes # (Auto) 3.1 x10^3/uL (1.0-4.8) Monocytes # (Auto) 0.5 x10^3/uL (0.0-1.1) Eosinophils # (Auto) 0.3 x10^3/uL (0.0-0.7) Basophils # (Auto) 0.1 x10^3/uL (0.0-0.2) Prothrombin Time 11.8 SEC (11.7-14.0) Prothromb Time International Ratio 0.9 (0.8-1.1) Sodium Level 139 mmol/L (136-145) Potassium Level 3.8 mmol/L (3.5-5.1) Chloride Level 100 mmol/L (98-107) Carbon Dioxide Level 27 mmol/L (21-32) Anion Gap 12 (6-14) Blood Urea Nitrogen 13 mg/dL (7-20) Creatinine 1.1 mg/dL (0.6-1.0) Estimated GFR (Cockcroft-Gault) 51.2 BUN/Creatinine Ratio 12 (6-20) Glucose Level 182 mg/dL (70-99) Calcium Level 9.7 mg/dL (8.5-10.1) Magnesium Level 1.9 mg/dL (1.8-2.4) Total Bilirubin 0.3 mg/dL (0.2-1.0) Aspartate Amino Transf (AST/SGOT) 19 U/L (15-37) Alanine Aminotransferase (ALT/SGPT) 28 U/L (14-59) Alkaline Phosphatase 126 U/L (46-116) Creatine Kinase 62 U/L (26-192) Creatine Kinase MB (Mass) 1.0 ng/mL (0.0-3.6) Creatine Kinase MB Relative Index % (0-4) Troponin I Quantitative 0.064 ng/mL (0.000-0.055) AV-Azz-H-Type Natriuretic Peptide 64 pg/mL (0-124) Total Protein 7.7 g/dL (6.4-8.2) Albumin 3.6 g/dL (3.4-5.0) Albumin/Globulin Ratio 0.9 (1.0-1.7) Lipase 167 U/L (73-393) Images: Images Chest x-ray did not show any acute changes other than chronic emphysema Assessment/Plan Assessment/Plan Chest pain or arm pain jaw pain and known COPD Plan Cardiac monitoring Serial enzymes Serial EKGs Consult pulmonary and cardiology DVT prophylaxis Full code Home meds I told her to quit smoking Prognosis long-term guarded if she doesn't quit smoking Total time 31 minutes NARINDER CASTILLO III DO August 27, 2018 18:01
[2018-08-27] MEDS ORDERED: NITROGLYCERIN PREMIX 250 ML IV ONE (19:30)
[2018-08-27] MEDS ORDERED: MORPHINE SULFATE 2 MG/ML VIAL. IV PRN (19:30)
[2018-08-27] MEDS: BUDESONIDE 0.5 MG/2 ML NEBU. NEB SCH (19:52)
[2018-08-27] MEDS: ALBUTEROL SULFATE 2.5 MG/3 ML NEBU. NEB SCH (19:52)
[2018-08-27] MEDS: clonazePAM 1 MG TABLET PO SCH (20:00)
[2018-08-27] MEDS ORDERED: NON FORMULARY ITEM (Albuterol Sulfate (Ventolin Hfa Inhaler) 2 PUFF) INH SCH (20:00)
[2018-08-27] MEDS: ATORVASTATIN CALCIUM 40 MG TABLET. PO SCH (20:00)
--- NOTE | 2018-08-27 20:06 | EKG ---
[facility] [address] [place] [address] Test Date: 2018-08-27 Test Time: 20:00:52 Pat Name: TIFFANIE FRIED Department: Room: 210 1 Gender: F Laboratory Sample Carrier: : 1960 Requested By: JOSHUA VELASQUEZ Order Number: [id number] Reading MD: Kameron Kearns Measurements Intervals [place] Rate: 88 P: 60 ND: 188 QRS: -52 QRSD: 76 T: 25 QT: 356 QTc: 434 Interpretive Statements SINUS RHYTHM ABNORMAL LEFT AXIS DEVIATION QRS(T) CONTOUR ABNORMALITY CONSISTENT WITH INFERIOR INFARCT PROBABLY OLD ABNORMAL ECG Electronically Signed On 09-22-2018 11:35:44 CDT by Kameron Kearns
[2018-08-27] MEDS ORDERED: NON FORMULARY ITEM (Budesonide/Formoterol Fumarate (Symbicort 160-4.5 Mcg Inhaler) 2 PUFF) SCH (21:00)
[2018-08-27] MEDS: metFORMIN 500 MG TABLET PO SCH (21:11)
[2018-08-27] MEDS ORDERED: predniSONE 10 MG TABLET PO ONE (23:55)
[2018-08-28] VITALS (31 sets, daily range): BP systolic 109–196; BP diastolic 55–115
[2018-08-28] MEDS: ALBUTEROL SULFATE 2.5 MG/3 ML NEBU. NEB SCH ×3 (03:45→08:00)
[2018-08-28] MEDS ORDERED: predniSONE 10 MG TABLET PO ONE (06:00)
[2018-08-28] MEDS: BUDESONIDE 0.5 MG/2 ML NEBU. NEB SCH ×2 (07:23→19:33)
--- NOTE | 2018-08-28 07:52 | PDOC ---
PROGRESS NOTES Chief Complaint Chief Complaint NSTEMI - Chest pain - jaw pain arm pain COPD Urine incontinence hyperosmolar non-ketotic state in DM2 DJD right hip DJD left hip Obstructed umbilical hernia Morbid obesity History of Present Illness History of Present Illness Patient is a 58-year-old female who continues to smoke with known COPD w/ PMHx Anxiety, Arthritis, Colon Cancer, COPD, Diabetes-Type II, High Cholesterol, Hypertension who presented with chest pain. Her mom told her she needed to come to the hospital because the pain was radiating into her arm and her jaw, her SBP was 220 yesterday, was admitted to [facility] with complete resolution of her pain once NTG GTT was initiated. Previously had a GXT prior to hip surgery 2 years ago and had what she describes as a negative coronary angiogram in 2010. She noted that she rates her symptoms at 10 out 10 she has associated weakness has been occurring off and on for several days and home meds but did not help and states this pain was doubling her over, worse than her 5 prior childbirths. Overnight troponin elevated from 0.06 to 0.8, was given therapeutic lovenox last night Plan: Lovenox therapeutic for NSTEMI Likely needs cardiac catheterization, getting steroids for premedication for contrast dye allergy Maximize glycemic control Stop smoking - cessation counseling given Vitals Vitals Vital Signs Date Time Temp Pulse Resp B/P (MAP) Pulse Ox O2 Delivery O2 Flow Rate FiO2 08/28/18 07:25 93 Room Air 08/28/18 03:30 78 115/55 (75) 08/28/18 03:00 97.5 18 97.5 Physical Exam General: Alert, Oriented X3, Cooperative Heart: Regular rate, Normal S1, Normal S2 Lungs: Clear, Other Abdomen: Normal bowel sounds, Soft Extremities: No clubbing, No cyanosis Skin: No rashes, No breakdown Labs LABS Laboratory Tests Test 08/27/18 16:13 08/27/18 16:23 08/27/18 18:02 08/27/18 19:25 D-Dimer (Melany) 0.44 ug/mlFEU (0.00-0.50) White Blood Count 12.5 x10^3/uL (4.0-11.0) Red Blood Count 5.44 x10^6/uL (3.50-5.40) Hemoglobin 16.4 g/dL (12.0-15.5) Hematocrit 48.7 % (36.0-47.0) Mean Corpuscular Volume 90 fL (79-100) Mean Corpuscular Hemoglobin 30 pg (25-35) Mean Corpuscular Hemoglobin Concent 34 g/dL (31-37) Red Cell Distribution Width 12.8 % (11.5-14.5) Platelet Count 308 x10^3/uL (140-400) Neutrophils (%) (Auto) 67 % (31-73) Lymphocytes (%) (Auto) 25 % (24-48) Monocytes (%) (Auto) 4 % (0-9) Eosinophils (%) (Auto) 2 % (0-3) Basophils (%) (Auto) 1 % (0-3) Neutrophils # (Auto) 8.4 x10^3uL (1.8-7.7) Lymphocytes # (Auto) 3.1 x10^3/uL (1.0-4.8) Monocytes # (Auto) 0.5 x10^3/uL (0.0-1.1) Eosinophils # (Auto) 0.3 x10^3/uL (0.0-0.7) Basophils # (Auto) 0.1 x10^3/uL (0.0-0.2) Prothrombin Time 11.8 SEC (11.7-14.0) Prothromb Time International Ratio 0.9 (0.8-1.1) Sodium Level 139 mmol/L (136-145) Potassium Level 3.8 mmol/L (3.5-5.1) Chloride Level 100 mmol/L (98-107) Carbon Dioxide Level 27 mmol/L (21-32) Anion Gap 12 (6-14) Blood Urea Nitrogen 13 mg/dL (7-20) Creatinine 1.1 mg/dL (0.6-1.0) Estimated GFR (Cockcroft-Gault) 51.2 BUN/Creatinine Ratio 12 (6-20) Glucose Level 182 mg/dL (70-99) Calcium Level 9.7 mg/dL (8.5-10.1) Magnesium Level 1.9 mg/dL (1.8-2.4) Total Bilirubin 0.3 mg/dL (0.2-1.0) Aspartate Amino Transf (AST/SGOT) 19 U/L (15-37) Alanine Aminotransferase (ALT/SGPT) 28 U/L (14-59) Alkaline Phosphatase 126 U/L (46-116) Creatine Kinase 62 U/L (26-192) Creatine Kinase MB (Mass) 1.0 ng/mL (0.0-3.6) Creatine Kinase MB Relative Index % (0-4) Troponin I Quantitative 0.064 ng/mL (0.000-0.055) 0.279 ng/mL (0.000-0.055) AQ-Tij-H-Type Natriuretic Peptide 64 pg/mL (0-124) Total Protein 7.7 g/dL (6.4-8.2) Albumin 3.6 g/dL (3.4-5.0) Albumin/Globulin Ratio 0.9 (1.0-1.7) Lipase 167 U/L (73-393) Glucose (Fingerstick) 139 mg/dL (70-99) Test 08/27/18 22:20 08/28/18 07:37 Troponin I Quantitative 0.879 ng/mL (0.000-0.055) Glucose (Fingerstick) 315 mg/dL (70-99) Assessment and Plan Assessmemt and Plan Problems Medical Problems: (1) Chest pain Status: Acute Comment Review of Relevant I have reviewed the following items ravi (where applicable) has been applied. Labs Laboratory Tests Test 08/27/18 16:13 08/27/18 16:23 08/27/18 18:02 08/27/18 19:25 D-Dimer (Melany) 0.44 ug/mlFEU (0.00-0.50) White Blood Count 12.5 x10^3/uL (4.0-11.0) Red Blood Count 5.44 x10^6/uL (3.50-5.40) Hemoglobin 16.4 g/dL (12.0-15.5) Hematocrit 48.7 % (36.0-47.0) Mean Corpuscular Volume 90 fL (79-100) Mean Corpuscular Hemoglobin 30 pg (25-35) Mean Corpuscular Hemoglobin Concent 34 g/dL (31-37) Red Cell Distribution Width 12.8 % (11.5-14.5) Platelet Count 308 x10^3/uL (140-400) Neutrophils (%) (Auto) 67 % (31-73) Lymphocytes (%) (Auto) 25 % (24-48) Monocytes (%) (Auto) 4 % (0-9) Eosinophils (%) (Auto) 2 % (0-3) Basophils (%) (Auto) 1 % (0-3) Neutrophils # (Auto) 8.4 x10^3uL (1.8-7.7) Lymphocytes # (Auto) 3.1 x10^3/uL (1.0-4.8) Monocytes # (Auto) 0.5 x10^3/uL (0.0-1.1) Eosinophils # (Auto) 0.3 x10^3/uL (0.0-0.7) Basophils # (Auto) 0.1 x10^3/uL (0.0-0.2) Prothrombin Time 11.8 SEC (11.7-14.0) Prothromb Time International Ratio 0.9 (0.8-1.1) Sodium Level 139 mmol/L (136-145) Potassium Level 3.8 mmol/L (3.5-5.1) Chloride Level 100 mmol/L (98-107) Carbon Dioxide Level 27 mmol/L (21-32) Anion Gap 12 (6-14) Blood Urea Nitrogen 13 mg/dL (7-20) Creatinine 1.1 mg/dL (0.6-1.0) Estimated GFR (Cockcroft-Gault) 51.2 BUN/Creatinine Ratio 12 (6-20) Glucose Level 182 mg/dL (70-99) Calcium Level 9.7 mg/dL (8.5-10.1) Magnesium Level 1.9 mg/dL (1.8-2.4) Total Bilirubin 0.3 mg/dL (0.2-1.0) Aspartate Amino Transf (AST/SGOT) 19 U/L (15-37) Alanine Aminotransferase (ALT/SGPT) 28 U/L (14-59) Alkaline Phosphatase 126 U/L (46-116) Creatine Kinase 62 U/L (26-192) Creatine Kinase MB (Mass) 1.0 ng/mL (0.0-3.6) Creatine Kinase MB Relative Index % (0-4) Troponin I Quantitative 0.064 ng/mL (0.000-0.055) 0.279 ng/mL (0.000-0.055) YE-Lvz-K-Type Natriuretic Peptide 64 pg/mL (0-124) Total Protein 7.7 g/dL (6.4-8.2) Albumin 3.6 g/dL (3.4-5.0) Albumin/Globulin Ratio 0.9 (1.0-1.7) Lipase 167 U/L (73-393) Glucose (Fingerstick) 139 mg/dL (70-99) Test 08/27/18 22:20 08/28/18 07:37 Troponin I Quantitative 0.879 ng/mL (0.000-0.055) Glucose (Fingerstick) 315 mg/dL (70-99) Laboratory Tests Test 08/27/18 16:13 08/27/18 16:23 08/27/18 18:02 08/27/18 19:25 D-Dimer (Melany) 0.44 ug/mlFEU (0.00-0.50) White Blood Count 12.5 x10^3/uL (4.0-11.0) Red Blood Count 5.44 x10^6/uL (3.50-5.40) Hemoglobin 16.4 g/dL (12.0-15.5) Hematocrit 48.7 % (36.0-47.0) Mean Corpuscular Volume 90 fL (79-100) Mean Corpuscular Hemoglobin 30 pg (25-35) Mean Corpuscular Hemoglobin Concent 34 g/dL (31-37) Red Cell Distribution Width 12.8 % (11.5-14.5) Platelet Count 308 x10^3/uL (140-400) Neutrophils (%) (Auto) 67 % (31-73) Lymphocytes (%) (Auto) 25 % (24-48) Monocytes (%) (Auto) 4 % (0-9) Eosinophils (%) (Auto) 2 % (0-3) Basophils (%) (Auto) 1 % (0-3) Neutrophils # (Auto) 8.4 x10^3uL (1.8-7.7) Lymphocytes # (Auto) 3.1 x10^3/uL (1.0-4.8) Monocytes # (Auto) 0.5 x10^3/uL (0.0-1.1) Eosinophils # (Auto) 0.3 x10^3/uL (0.0-0.7) Basophils # (Auto) 0.1 x10^3/uL (0.0-0.2) Prothrombin Time 11.8 SEC (11.7-14.0) Prothromb Time International Ratio 0.9 (0.8-1.1) Sodium Level 139 mmol/L (136-145) Potassium Level 3.8 mmol/L (3.5-5.1) Chloride Level 100 mmol/L (98-107) Carbon Dioxide Level 27 mmol/L (21-32) Anion Gap 12 (6-14) Blood Urea Nitrogen 13 mg/dL (7-20) Creatinine 1.1 mg/dL (0.6-1.0) Estimated GFR (Cockcroft-Gault) 51.2 BUN/Creatinine Ratio 12 (6-20) Glucose Level 182 mg/dL (70-99) Calcium Level 9.7 mg/dL (8.5-10.1) Magnesium Level 1.9 mg/dL (1.8-2.4) Total Bilirubin 0.3 mg/dL (0.2-1.0) Aspartate Amino Transf (AST/SGOT) 19 U/L (15-37) Alanine Aminotransferase (ALT/SGPT) 28 U/L (14-59) Alkaline Phosphatase 126 U/L (46-116) Creatine Kinase 62 U/L (26-192) Creatine Kinase MB (Mass) 1.0 ng/mL (0.0-3.6) Creatine Kinase MB Relative Index % (0-4) Troponin I Quantitative 0.064 ng/mL (0.000-0.055) 0.279 ng/mL (0.000-0.055) YM-Ymy-M-Type Natriuretic Peptide 64 pg/mL (0-124) Total Protein 7.7 g/dL (6.4-8.2) Albumin 3.6 g/dL (3.4-5.0) Albumin/Globulin Ratio 0.9 (1.0-1.7) Lipase 167 U/L (73-393) Glucose (Fingerstick) 139 mg/dL (70-99) Test 08/27/18 22:20 08/28/18 07:37 Troponin I Quantitative 0.879 ng/mL (0.000-0.055) Glucose (Fingerstick) 315 mg/dL (70-99) Medications Current Medications Aspirin (Magdiel Aspirin) 325 mg 1X ONCE PO Last administered on 08/27/18at 16:44; Start 08/27/18 at 16:45; Stop 08/27/18 at 16:46; Status DC Sodium Chloride 1,000 ml @ 1,000 mls/hr 1X ONCE IV Last administered on 08/27/18at 16:44; Start 08/27/18 at 16:45; Stop 08/27/18 at 17:44; Status DC Fentanyl Citrate (Fentanyl 2ml Vial) 50 mcg 1X ONCE IV Last administered on 08/27/18at 16:44; Start 08/27/18 at 16:45; Stop 08/27/18 at 16:46; Status DC Ondansetron HCl (Zofran) 4 mg PRN Q8HRS PRN IV NAUSEA/VOMITING; Start 08/27/18 at 16:45; Stop 08/28/18 at 16:44 Fentanyl Citrate (Fentanyl 2ml Vial) 50 mcg PRN Q2HRS PRN IV PAIN Last administered on 08/27/18at 17:48; Start 08/27/18 at 16:45 Insulin Human Lispro (HumaLOG) 0-5 UNITS TIDWMEALS SQ ; Start 08/27/18 at 17:00 Dextrose (Dextrose 50%-Water Syringe) 12.5 gm PRN Q15MIN PRN IV SEE COMMENTS; Start 08/27/18 at 16:45 Amlodipine Besylate (Norvasc) 10 mg DAILY PO ; Start 08/28/18 at 09:00 Atorvastatin Calcium (Lipitor) 40 mg QHS PO Last administered on 08/27/18at 20:00; Start 08/27/18 at 21:00 Clonazepam (KlonoPIN) 1 mg BID PO Last administered on 08/27/18at 20:00; Start 08/27/18 at 21:00 Non-Formulary Medication (Albuterol Sulfate (Ventolin Hfa Inhaler)) 2 puff Q4HRS INH ; Start 08/27/18 at 20:00; Status UNV Non-Formulary Medication (Budesonide/ Formoterol Fumarate (Symbicort 160-4.5 Mcg Inhaler)) 2 puff BID .ROUTE ; Start 08/27/18 at 21:00; Status UNV Insulin Glargine (Lantus) 35 units DAILY SQ ; Start 08/28/18 at 09:00 Losartan Potassium (Cozaar) 100 mg DAILY PO ; Start 08/28/18 at 09:00 Metformin HCl (Glucophage) 500 mg BIDWMEALS PO Last administered on 08/27/18at 21:11; Start 08/27/18 at 20:00 Spironolactone (Aldactone) 25 mg DAILY PO ; Start 08/28/18 at 09:00 Albuterol Sulfate (Ventolin Neb Soln) 2.5 mg Q4HRS NEB Last administered on 08/27/18at 19:52; Start 08/27/18 at 20:00 Budesonide (Pulmicort) 0.5 mg RTBID NEB Last administered on 08/28/18at 07:23; Start 08/27/18 at 20:00 Nitroglycerin/ Dextrose 250 ml @ 0 mls/hr 1X ONCE IV Last administered on 08/27/18at 19:57; Start 08/27/18 at 19:30; Stop 08/27/18 at 19:35; Status DC Enoxaparin Sodium (Lovenox 100mg Syringe) 100 mg 1X ONCE SQ Last administered on 08/27/18at 19:58; Start 08/27/18 at 20:00; Stop 08/27/18 at 20:01; Status DC Morphine Sulfate (Morphine Sulfate) 2 mg PRN Q4HRS PRN IV PAIN Last administered on 08/27/18at 20:01; Start 08/27/18 at 19:30 Morphine Sulfate (Morphine Sulfate) 4 mg PRN Q4HRS PRN IV PAIN; Start 08/27/18 at 19:30 Prednisone (Prednisone) 50 mg 1X ONCE PO Last administered on 08/27/18at 23:24; Start 08/27/18 at 23:55; Stop 08/27/18 at 23:56; Status DC Prednisone (Prednisone) 50 mg 1X ONCE PO Last administered on 08/28/18at 05:08; Start 08/28/18 at 06:00; Stop 08/28/18 at 06:01; Status DC Active Scripts Active Reported Levemir (Insulin Detemir) 100 Unit/1 Ml Vial 35 Unit SQ A.M. last dose this am next dose tomorrow am Symbicort 160-4.5 Mcg Inhaler (Budesonide/Formoterol Fumarate) 10.2 Gm Hfa.aer.ad 2 BID Amlodipine Besylate 10 Mg Tablet 10 DAILY laast dose this am next dose tomorrow Clonazepam 1 Mg Tablet 1 BID last dose this am next dose this night Atorvastatin Calcium 40 Mg Tablet 40 DAILY last dose last night next dose tonight Spironolactone 25 Mg Tablet 25 DAILY lasty dose this am next dose tomorrow am Metformin Hcl 500 Mg Tablet 500 BID last dose this am next dose with suppeer Losartan Potassium 100 Mg Tablet 100 DAILY last dose this am next dose tomorrow am Vitals/I & O Vital Sign - Last 24 Hours 08/27/18 08/27/18 08/27/18 08/27/18 16:20 16:44 17:25 17:48 Temp 97.5 97.5 Pulse 109 100 Resp 20 20 24 18 B/P (MAP) 200/108 (138) 167/89 (115) Pulse Ox 97 96 O2 Delivery Room Air Room Air 08/27/18 08/27/18 08/27/18 08/27/18 18:00 19:00 19:05 19:18 Temp 97.8 97.4 97.8 97.4 Pulse 96 87 Resp 18 18 B/P (MAP) 152/73 (99) 136/74 (94) Pulse Ox 97 97 O2 Delivery Room Air Room Air Room Air Room Air 08/27/18 08/27/18 08/27/18 08/27/18 19:53 20:01 20:15 20:30 Pulse 94 94 Resp 20 B/P (MAP) 124/62 (82) 121/61 (81) Pulse Ox 96 O2 Delivery Room Air 08/27/18 08/27/18 08/27/18 08/27/18 20:31 20:45 21:00 21:30 Pulse 92 96 103 Resp 20 B/P (MAP) 121/59 (79) 125/65 (85) 111/66 (81) 08/27/18 08/27/18 08/27/18 08/27/18 22:00 22:30 23:00 23:30 Temp 97.6 97.6 Pulse 102 100 95 87 Resp 18 B/P (MAP) 106/57 (73) 101/54 (70) 108/59 (75) 114/59 (77) Pulse Ox 92 O2 Delivery Room Air 08/28/18 08/28/18 08/28/18 08/28/18 00:31 01:30 02:30 03:00 Temp 97.5 97.5 Pulse 83 84 75 89 Resp 18 B/P (MAP) 119/62 (81) 125/62 (83) 109/56 (73) 123/69 (87) Pulse Ox 92 O2 Delivery Room Air 08/28/18 08/28/18 03:30 07:25 Pulse 78 B/P (MAP) 115/55 (75) Pulse Ox 93 O2 Delivery Room Air Intake and Output 08/27/18 08/27/18 08/28/18 15:00 23:00 07:00 Intake Total 0 ml 36 ml Output Total 450 ml 450 ml Balance -450 ml -414 ml ERNIE ARMENTA MD August 28, 2018 07:52
--- NOTE | 2018-08-28 07:56 | EKG ---
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
[2018-08-28] MEDS: metFORMIN 500 MG TABLET PO SCH (08:00)
[2018-08-28] MEDS: INSULIN GLARGINE 300 UNITS/3 ML INSULN.PEN. SQ SCH (08:31)
[2018-08-28] MEDS: INSULIN LISPRO 300 UNITS/3 ML INSULN.PEN. SQ SCH ×3 (08:32→17:10)
--- NOTE | 2018-08-28 08:40 | PDOC2 ---
CARDIAC CONSULT DATE OF CONSULT Date of Consult DATE: 08/28/18 TIME: 08:34 REASON FOR CONSULT Reason for Consult: Chest pain REFERRING PHYSICIAN Referring Physician: Dr. Perez SOURCE Source: Chart review, Patient HISTORY OF PRESENT ILLNESS HISTORY OF PRESENT ILLNESS This is a 57 yo female who presented secondary to chest pain. Patient reports experiencing central chest pressure. Pain radiating up to her bilateral jaw and down both arms. Associated with nausea, SOA, and mild dizziness. Due to symptoms and family history of CAD, mother encouraged her to go to the ED for further evaluation and treatment. BP Significantly elevated upon arrival. Fentanyl improved pain and nitro seemed to relieve it. No further pain overnight. Troponin trended overnight and is mildly elevated. PAST MEDICAL HISTORY Cardiovascular: HTN, Hyperlipidemia Pulmonary: Asthma, COPD CENTRAL NERVOUS SYSTEM: Periperal neuropathy GI: GERD Heme/Onc: Anemia NOS, Cancer (colon) Psych: Anxiety Musculoskeletal: Osteoarthritis Rheumatologic: No pertinent hx Infectious disease: No pertinent hx ENT: No pertinent hx Renal/: No pertinent hx Endocrine: Diabetes PAST SURGICAL HISTORY Past Surgical History: Appendectomy, Total hip replacement (bilateral ), Tubal Ligation, Hysterectomy, Colon Resection, Other (left nephrectomy ) FAMILY HISTORY Family History: Coronary Artery Disease (mother, brother- CABG at 58) SOCIAL HISTORY Smoke: <1 pack per day ALCOHOL: none Drugs: None Lives: with Family CURRENT MEDICATIONS CURRENT MEDICATIONS Current Medications Medications (Trade) Dose Ordered Sig/Prieto Route PRN Reason Start Time Stop Time Status Last Admin Dose Admin Aspirin (Magdiel Aspirin) 325 mg 1X ONCE PO 08/27/18 16:45 08/27/18 16:46 DC 08/27/18 16:44 Sodium Chloride 1,000 ml @ 1,000 mls/hr 1X ONCE IV 08/27/18 16:45 08/27/18 17:44 DC 08/27/18 16:44 Fentanyl Citrate (Fentanyl 2ml Vial) 50 mcg 1X ONCE IV 08/27/18 16:45 08/27/18 16:46 DC 08/27/18 16:44 Fentanyl Citrate (Fentanyl 2ml Vial) 50 mcg PRN Q2HRS PRN IV PAIN SEVERE 08/27/18 16:45 08/27/18 17:48 Insulin Human Lispro (HumaLOG) 0-5 UNITS TIDWMEALS SQ 08/27/18 17:00 08/28/18 08:32 Atorvastatin Calcium (Lipitor) 40 mg QHS PO 5/12/19 21:00 08/27/18 20:00 Clonazepam (KlonoPIN) 1 mg BID PO 08/27/18 21:00 08/27/18 20:00 Insulin Glargine (Lantus) 35 units DAILY SQ 08/28/18 09:00 08/28/18 08:31 Metformin HCl (Glucophage) 500 mg BIDWMEALS PO 08/27/18 20:00 08/27/18 21:11 Albuterol Sulfate (Ventolin Neb Soln) 2.5 mg Q4HRS NEB 08/27/18 20:00 08/27/18 19:52 Budesonide (Pulmicort) 0.5 mg RTBID NEB 08/27/18 20:00 08/28/18 07:23 Nitroglycerin/ Dextrose 250 ml @ 0 mls/hr 1X ONCE IV 08/27/18 19:30 08/27/18 19:35 DC 08/27/18 19:57 Enoxaparin Sodium (Lovenox 100mg Syringe) 100 mg 1X ONCE SQ 08/27/18 20:00 08/27/18 20:01 DC 08/27/18 19:58 Morphine Sulfate (Morphine Sulfate) 2 mg PRN Q4HRS PRN IV PAIN MILD 08/27/18 19:30 08/27/18 20:01 Prednisone (Prednisone) 50 mg 1X ONCE PO 08/27/18 23:55 08/27/18 23:56 DC 08/27/18 23:24 Prednisone (Prednisone) 50 mg 1X ONCE PO 08/28/18 06:00 08/28/18 06:01 DC 08/28/18 05:08 Enoxaparin Sodium (Lovenox 100mg Syringe) 100 mg Q12HR SQ 08/28/18 09:00 08/28/18 08:26 ALLERGIES ALLERGIES: Coded Allergies: RODOLFO Inhibitors (Verified Allergy, Severe, Anaphylaxis, 06/27/17) Iodinated Contrast- Oral and IV Dye (Verified Allergy, Severe, ANAPHYLAXIS, 06/27/17) nickel (Verified Allergy, Severe, Unknown, 08/28/17) STATES IS ALLERGIC TO ALL KINDS OF METAL/ swelling shellfish derived (Verified Allergy, Severe, Anaphylaxis, 06/27/17) ROS Review of System 14 point ROS conducted with pertinent positives noted above in HPI. PHYSICAL EXAM General: Alert, Oriented X3, Cooperative, No acute distress HEENT: Atraumatic, Mucous membr. moist/pink Lungs: Clear to auscultation, Normal air movement Heart: Regular rate, Normal S1, Normal S2 Abdomen: Soft, No tenderness Extremities: No edema, Normal pulses Skin: No significant lesion Neuro: Normal speech, Sensation intact, Cranial nerves 3-12 NL Psych/Mental Status: Mental status NL, Mood NL MUSCULOSKELETAL: Osteoarthritic changes both hands VITALS VITALS Vital Signs Date Time Temp Pulse Resp B/P (MAP) Pulse Ox O2 Delivery O2 Flow Rate FiO2 08/28/18 07:25 93 Room Air 08/28/18 07:00 97.4 122 12 144/71 (95) 97.4 LABS Lab: Laboratory Tests Test 08/27/18 16:13 08/27/18 16:23 08/27/18 18:02 08/27/18 19:25 D-Dimer (Melany) 0.44 ug/mlFEU (0.00-0.50) White Blood Count 12.5 x10^3/uL (4.0-11.0) Red Blood Count 5.44 x10^6/uL (3.50-5.40) Hemoglobin 16.4 g/dL (12.0-15.5) Hematocrit 48.7 % (36.0-47.0) Mean Corpuscular Volume 90 fL (79-100) Mean Corpuscular Hemoglobin 30 pg (25-35) Mean Corpuscular Hemoglobin Concent 34 g/dL (31-37) Red Cell Distribution Width 12.8 % (11.5-14.5) Platelet Count 308 x10^3/uL (140-400) Neutrophils (%) (Auto) 67 % (31-73) Lymphocytes (%) (Auto) 25 % (24-48) Monocytes (%) (Auto) 4 % (0-9) Eosinophils (%) (Auto) 2 % (0-3) Basophils (%) (Auto) 1 % (0-3) Neutrophils # (Auto) 8.4 x10^3uL (1.8-7.7) Lymphocytes # (Auto) 3.1 x10^3/uL (1.0-4.8) Monocytes # (Auto) 0.5 x10^3/uL (0.0-1.1) Eosinophils # (Auto) 0.3 x10^3/uL (0.0-0.7) Basophils # (Auto) 0.1 x10^3/uL (0.0-0.2) Prothrombin Time 11.8 SEC (11.7-14.0) Prothromb Time International Ratio 0.9 (0.8-1.1) Sodium Level 139 mmol/L (136-145) Potassium Level 3.8 mmol/L (3.5-5.1) Chloride Level 100 mmol/L (98-107) Carbon Dioxide Level 27 mmol/L (21-32) Anion Gap 12 (6-14) Blood Urea Nitrogen 13 mg/dL (7-20) Creatinine 1.1 mg/dL (0.6-1.0) Estimated GFR (Cockcroft-Gault) 51.2 BUN/Creatinine Ratio 12 (6-20) Glucose Level 182 mg/dL (70-99) Calcium Level 9.7 mg/dL (8.5-10.1) Magnesium Level 1.9 mg/dL (1.8-2.4) Total Bilirubin 0.3 mg/dL (0.2-1.0) Aspartate Amino Transf (AST/SGOT) 19 U/L (15-37) Alanine Aminotransferase (ALT/SGPT) 28 U/L (14-59) Alkaline Phosphatase 126 U/L (46-116) Creatine Kinase 62 U/L (26-192) Creatine Kinase MB (Mass) 1.0 ng/mL (0.0-3.6) Creatine Kinase MB Relative Index % (0-4) Troponin I Quantitative 0.064 ng/mL (0.000-0.055) 0.279 ng/mL (0.000-0.055) WT-Pdr-D-Type Natriuretic Peptide 64 pg/mL (0-124) Total Protein 7.7 g/dL (6.4-8.2) Albumin 3.6 g/dL (3.4-5.0) Albumin/Globulin Ratio 0.9 (1.0-1.7) Lipase 167 U/L (73-393) Glucose (Fingerstick) 139 mg/dL (70-99) Test 08/27/18 22:20 08/28/18 07:37 Troponin I Quantitative 0.879 ng/mL (0.000-0.055) Glucose (Fingerstick) 315 mg/dL (70-99) ECHOCARDIOGRAM ECHOCARDIOGRAM <Conclusion> Left ventricle systolic function is normal. The Ejection Fraction is 55%. There is normal LV segmental wall motion. Transmitral Doppler flow pattern is Grade I-abnormal relaxation pattern. Trace tricuspid regurgitation. The PA pressure was estimated at 16 mmHg. There is no evidence of significant pericardial effusion. DATE: 10/31/16 1727 STRESS TEST STRESS TEST Conclusion 1. No EKG evidence of stress induced ischemia. 2. Nuclear images show no reversible ischemia or infarct. 3. Normal LV systolic function with an ejection fraction of 72%. 4. Low risk Lexiscan stress test. DATE: 10/17/13 1205 ASSESSMENT/PLAN ASSESSMENT/PLAN 1. Chest pain, with typical features 2. NSTEMI; trop highest 0.8 3. Accelerated hypertension; now controlled 4. Hyperlipidemia; statin 5. Diabetes, II 6. COPD with tobaccoism Recommendations EKG Repeat troponin to note peak Lipid panel Echo to assess LV systolic function Discussed/encouraged smoking cessation Keep NPO Given presentation and risk factors in the setting of NSTEMI, recommend cardiac cath with possible PCI. R/b/a discussed with patient and she is agreeable. Will proceed with later today. ARDEN FORBES APRN August 28, 2018 08:40
[2018-08-28] MEDS: SPIRONOLACTONE 25 MG TABLET PO SCH (09:00)
[2018-08-28] MEDS: LOSARTAN POTASSIUM 50 MG TABLET. PO SCH (09:00)
--- NOTE | 2018-08-28 09:33 | EKG ---
[facility] [address] [place] [address] Test Date: 2018-08-28 Test Time: 09:22:47 Pat Name: TIFFANIE FRIED Department: Room: 210 1 Gender: F Rn Residential: : 1960 Requested By: ARDEN FORBES Order Number: [id number] Reading MD: Kameron Kearns Measurements Intervals [place] Rate: 89 P: 87 CO: 192 QRS: 26 QRSD: 74 T: 26 QT: 356 QTc: 434 Interpretive Statements SINUS RHYTHM QRS(T) CONTOUR ABNORMALITY CONSISTENT WITH ANTEROSEPTAL INFARCT AGE UNDETERMINED ABNORMAL ECG Electronically Signed On 09-22-2018 11:39:20 CDT by Kameron Kearns
[2018-08-28] MEDS ORDERED: LIDOCAINE 1% PF 2 ML VIAL. ONE (09:54)
[2018-08-28] MEDS ORDERED: HEPARIN for ARTERIAL LINE 1,500 ML ONE (09:54)
[2018-08-28] MEDS ORDERED: IODIXANOL 320 MG/ML 100 ML VIAL. ONE ×3 (09:54→11:29)
[2018-08-28] MEDS ORDERED: fentaNYL PF VIAL 100 MCG/2 ML VIAL ONE (09:56)
[2018-08-28] MEDS ORDERED: HEPARIN for IV BOLUS 10,000 UNIT/10 ML VIAL. ONE (09:56)
[2018-08-28] MEDS ORDERED: VERAPAMIL 5 MG/2 ML VIAL. ONE (09:56)
[2018-08-28] MEDS ORDERED: methylPREDNISolone SOD SUCC PF 125 MG/2 ML VIAL. ONE (09:56)
[2018-08-28] MEDS ORDERED: MIDAZOLAM HCL/PF 2 MG/2 ML VIAL. ONE ×2 (09:56→11:09)
[2018-08-28] MEDS ORDERED: NITROGLYCERIN 200 MCG/2 ML SYRINGE FOR CATH/VASC LAB. ONE (09:57)
[2018-08-28] MEDS ORDERED: FAMOTIDINE 20 MG/2 ML VIAL ONE (09:57)
[2018-08-28] MEDS ORDERED: diphenhydrAMINE 50 MG/ML VIAL ONE (09:57)
--- NOTE | 2018-08-28 10:30 | PDOC ---
MODERATE SEDATION ASSESSMENT RISKS/ALTERNATIVES Risks/Alternatives Risks and alternatives of this type of sedation and procedure discussed with: RISK/ALTERNATIVES: Patient H & P ON CHART H & P H & P on chart and reviewed for co-morbid conditions and appropriate labs. H&P ON CHART: Yes STATUS PREG STATUS ASSESSED: Yes MEDS/ALLERGIES REVIEWED Meds/Allergies Reviewed Medications and Allergies including time and route of recently administered narcotics and sedatives. MEDS/ALLERGIES REVIEWED: Yes ASA RATING ASA RATING: II AIRWAY ASSESSMENT Airway Assessment Airway patency, oral function limitations, presence of caps, crowns, dentures, partials, and ability to extend neck assessed. AIRWAY ASSESSMENT: Yes MALLAMPATI SCORE MALLAMPATI SCORE: II PRE-SEDATION ASSESSMENT PRE-SEDATION ASSESSMENT: Yes JANE LOO MD August 28, 2018 10:30
--- NOTE | 2018-08-28 10:53 | CARD ---
MR#: [id number] Date of Study: 08/28/2018 Ordering Physician: ARDEN FORBES, Referring Physician: NARINDER CASTILLO Tech: Perri Juarez RDCS APPROVED REPORT EXAM: Two-dimensional and M-mode echocardiogram with Doppler and color Doppler. Other Information Quality : Fair INDICATION Chest Pain 2D DIMENSIONS RVDd2.6 (2.9-3.5cm)Left Atrium(2D)3.9 (1.6-4.0cm) IVSd0.9 (0.7-1.1cm)Aortic Root(2D)2.8 (2.0-3.7cm) LVDd4.4 (3.9-5.9cm)LVOT Diameter2.3 (1.8-2.4cm) PWd0.8 (0.7-1.1cm)LVDs3.2 (2.5-4.0cm) FS (%) 26.1 %SV45.0 ml LVEF(%)55.0 (>50%) Aortic Valve AoV Peak Ebenezer.114.9cm/sAoV VTI22.0cm AO Peak GR.5.3mmHgLVOT Peak Ebenezer.106.1cm/s LVOT VTI 21.45cmAO Mean GR.3mmHg DEANGELO (VMAX)3.58fo1EVY (VTI)3.91cm2 Mitral Valve MV E Bfpwuhnj07.4cm/sMV DECEL UKQK556ob MV A Gihegdij429.4cm/sMV XCS85af E/A Ratio0.6MVA (PHT)3.35cm2 TDI E/Lateral E'12.5E/Medial E'11.4 Pulmonary Vein S1 Roqumdar46.0cm/sD2 Nqfcqpek14.9cm/s LEFT VENTRICLE The left ventricle is normal size. There is normal left ventricular wall thickness. The left ventricu lar systolic function is normal and the ejection fraction is within normal range. The Ejection Fracti on is 55-60%. There is normal LV segmental wall motion. Transmitral Doppler flow pattern is Grade I-a bnormal relaxation pattern. RIGHT VENTRICLE The right ventricle is normal size. The right ventricular systolic function is normal. ATRIA The left atrium size is normal. The right atrium size is normal. The interatrial septum is intact wit h no evidence for an atrial septal defect or patent foramen ovale as noted on 2-D or Doppler imaging. AORTIC VALVE The aortic valve is not well visualized but appears to be functioning normally by Doppler interrogati on. Doppler and Color Flow revealed no significant aortic regurgitation. There is no significant aort ic valvular stenosis. MITRAL VALVE The mitral valve is calcified but opens well. Posterior mitral annular calcification is mild. There i s no evidence of mitral valve prolapse. There is no mitral valve stenosis. Doppler and Color Flow rev ealed no mitral valve regurgitation noted. TRICUSPID VALVE The tricuspid valve is normal in structure and function. Doppler and Color Flow revealed no tricuspid valve regurgitation noted. There is no tricuspid valve stenosis. PULMONIC VALVE The pulmonic valve is not well visualized. Doppler and Color Flow revealed no pulmonic valvular regur gitation. There is no pulmonic valvular stenosis. GREAT VESSELS The aortic root is normal in size. The ascending aorta is normal in size. The IVC is normal in size a nd collapses >50% with inspiration. PERICARDIAL EFFUSION There is no evidence of significant pericardial effusion. Critical Notification Critical Value: No <Conclusion> The left ventricular systolic function is normal and the ejection fraction is within normal range. Th e Ejection Fraction is 55-60%. There is normal LV segmental wall motion. Signed by : Lorenzo Quan, Electronically Approved : 08/28/2018 10:53:04
[2018-08-28] MEDS ORDERED: methylPREDNISolone SOD SUCC PF 125 MG/2 ML VIAL. IV ONE (11:00)
[2018-08-28] MEDS ORDERED: VERAPAMIL 5 MG/2 ML VIAL. IART ONE (11:00)
[2018-08-28] MEDS ORDERED: diphenhydrAMINE 50 MG/ML VIAL IVP ONE (11:00)
[2018-08-28] MEDS ORDERED: HEPARIN for IV BOLUS 10,000 UNIT/10 ML VIAL. IART ONE (11:00)
[2018-08-28] MEDS ORDERED: NITROGLYCERIN 200 MCG/2 ML SYRINGE FOR CATH/VASC LAB. IART ONE (11:00)
[2018-08-28] MEDS ORDERED: fentaNYL PF VIAL 100 MCG/2 ML VIAL IV ONE (11:00)
[2018-08-28] MEDS ORDERED: MIDAZOLAM HCL/PF 2 MG/2 ML VIAL. IV ONE (11:00)
[2018-08-28] MEDS ORDERED: FAMOTIDINE 20 MG/2 ML VIAL IVP ONE (11:00)
[2018-08-28] MEDS ORDERED: LIDOCAINE 1% PF 2 ML VIAL. INJ ONE (11:00)
[2018-08-28] MEDS ORDERED: IODIXANOL 320 MG/ML 100 ML VIAL. IART ONE (11:00)
[2018-08-28] MEDS ORDERED: LIDOCAINE 1% Multi-Dose 20 ML VIAL. ONE (11:06)
[2018-08-28] MEDS ORDERED: BIVALIRUDIN 250 MG VIAL. IV ONE ×2 (11:13→11:30)
[2018-08-28] MEDS ORDERED: IV NORMAL SALINE 1000ML BAG 1,000 ML IV ONE (11:15)
[2018-08-28] MEDS ORDERED: LIDOCAINE 1% Multi-Dose 20 ML VIAL. INJ ONE (11:30)
[2018-08-28] MEDS ORDERED: CLOPIDOGREL BISULFATE 75 MG TABLET ONE ×2 (12:00→12:03)
[2018-08-28] MEDS ORDERED: TICAGRELOR 90 MG TABLET. ONE ×2 (12:00→12:11)
[2018-08-28] MEDS ORDERED: ASPIRIN 325 MG TABLET ONE (12:12)
[2018-08-28] MEDS ORDERED: ASPIRIN 325 MG TABLET PO ONE (12:15)
[2018-08-28] MEDS ORDERED: CLOPIDOGREL BISULFATE 75 MG TABLET PO ONE (12:15)
[2018-08-28] MEDS ORDERED: TICAGRELOR 90 MG TABLET. PO ONE (12:15)
[2018-08-28] MEDS ORDERED: IV NORMAL SALINE 1000ML BAG 1,000 ML IV SCH (12:16)
[2018-08-28] MEDS ORDERED: LIDOCAINE 2% 100 MG/5 ML SYRINGE. IV PRN (12:30)
[2018-08-28] MEDS ORDERED: ACETAMINOPHEN 325 MG TABLET. PO PRN (12:30)
[2018-08-28] MEDS ORDERED: NITROGLYCERIN SUBLINGUAL 0.4 MG BOTTLE OF 25. SL PRN (12:30)
[2018-08-28] MEDS ORDERED: 0.9 % SODIUM CHLORIDE 10 ML DISP.SYRIN. IV PRN (12:30)
[2018-08-28] MEDS ORDERED: fentaNYL PF VIAL 100 MCG/2 ML VIAL IV PRN (12:30)
[2018-08-28] MEDS ORDERED: ATROPINE 0.5 MG/5 ML DISP.SYRINGE. IV PRN (12:30)
[2018-08-28] MEDS ORDERED: AMIODARONE 150 MG in IV DEXTROSE 5% 100ML 100 ML IV PRN (12:30)
--- NOTE | 2018-08-28 12:32 | NUR ---
SS following for discharge planning. SS reviewed pt chart. Pt is from home and is currently on room air. No discharge needs noted at this time. SS will continue to follow for discharge planning.
[2018-08-28] MEDS: fentaNYL PF VIAL 100 MCG/2 ML VIAL IV PRN ×4 (12:48→20:09)
[2018-08-28] MEDS: clonazePAM 1 MG TABLET PO SCH (13:01)
[2018-08-28] MEDS: amLODIPine BESYLATE 10 MG TABLET PO SCH (13:01)
[2018-08-28] MEDS: CYCLOBENZAPRINE 10 MG TABLET. PO PRN ×3 (13:37→22:12)
--- NOTE | 2018-08-28 13:51 | EKG ---
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
[2018-08-28] MEDS: MORPHINE SULFATE 4 MG/ML VIAL. IV PRN ×2 (14:19→22:15)
[2018-08-28] MEDS ORDERED: ALBUTEROL SULFATE 2.5 MG/3 ML NEBU. NEB PRN (14:30)
[2018-08-28] MEDS: hydrALAZINE 20 MG/ML VIAL. IVP PRN ×2 (15:26→22:13)
[2018-08-28] MEDS ORDERED: LORazepam 1 MG TABLET PO PRN (16:30)
--- NOTE | 2018-08-28 16:35 | CARD ---
MR#: [id number] Date of Study: 08/28/2018 Ordering Physician: ARDEN FORBES, Referring Physician: Emmy EVANS: RT Kadie (R) APPROVED REPORT Procedures Left heart catheterization Selective coronary angiogram Left ventriculogram Aortic root injection Drug-eluting stent placement to the left circumflex. The patient is a 57-year-old female who was admitted with chest discomfort. Pain was relieved with ni troglycerin. Troponin elevated to approximately 3.0. She was treated for a non-ST elevated myocardial infarction. Heart catheterization was recommended. Risks and benefits were discussed. The patient ag amalia to proceed. After informed consent was obtained the patient was brought to the heart catheterization lab. The are a of the right radial artery was prepared the usual manner after normal Chavez's test. The area of the right femoral artery was also prepared in the usual manner with Betadine, sterile draping and local anesthetic. Access was obtained to the right radial artery, a wire placed and a [address] d over the wire. The usual mixture of antispasm medications and heparin was administered through the sheath. A 6 Ukrainian JL 3.5 diagnostic catheter was advanced to the ascending aorta. It was used to eng age the left coronary system and sequential injections in various views were obtained. Following this a 6 Ukrainian JR4 and then a 6 Ukrainian Christ right diagnostic catheters were used to attempt to find the right coronary artery which was not able to be found. A pigtail catheter was then advanced to the ascending aorta and into the left ventricle. Pressures were obtained. A 30 URBINA left ventriculogram was performed. Pullback pressures were measured. A 30 ADAM aortic root injection was performed. 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 I could not engage the right coronary arter y from the right arm and therefore we proceeded and entered the right femoral artery with an 18 gaug e needle, a wire was placed the 6 Ukrainian sheath placed over the wire. With the approach from the leg were able to engage the anomalous right coronary artery with a JR 3.5 diagnostic catheter. Sequential injections in various views were obtained. A 6 Ukrainian JL4 guide guiding catheter was then used to engage the left coronary system. Imaging showe d a subtotal lesion in the mid to distal left circumflex. Angiomax was given as per protocol. The les ion could not be crossed with a PT choice wire. It was able to be crossed with a whisper wire but the wire then did not proceed to the distal vessel. Then a high torque floppy wire was used to cross the lesion and the wire was placed distally in the vessel. A 3.0 x 15 mm Trek balloon was used for initi al 2 inflations at 8 yanelis for 15 seconds. Following this a 3.25 x 23 mm Xience Alpine drug-eluting luisito nt was deployed with one inflation at 16 yanelis for 16 seconds. Residual lesion was 0%. The guiding syst em and wire were removed from the patient. The femoral sheath was sutured into place secondary to the patient being anticoagulated and the puncture site being slightly distal to the bifurcation in an ar ea with a previous hip replacement. The right radial catheter was removed as per protocol and sealed with a TR band. The patient was then moved to the holding area with plans to remove the femoral sheat h in approximately 5 hours. Findings. Hemodynamics. LV pressure 138/6, 12. Aortic root pressure 134/78. Coronaries. Left main. Left main was a large vessel with no lesions. Left anterior descending. The LAD was a moderately sized vessel with normal distribution. It had a pr oximal to mid 40-50% lesion. Left circumflex. Left circumflex was a large dominant vessel. It had a mid to distal subtotal lesion. Right coronary artery. The right coronary had a anomalous takeoff in the area of the left main. It wa s a moderate size vessel. It had a mid 30% lesion. Distally there was a 50-60% lesion and a more dist al 50% lesion. A small distal branch had a 90% lesion. Left ventriculogram. The left ventricle showed normal left ventricular systolic function. Aortic root injection. The aortic root appeared to be of normal size with no significant aortic insufficiency. 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 <Conclusion> Severe single-vessel coronary artery disease with a subtotal lesion in the mid to distal left circumf monty vessel. Mild to moderate disease in the LAD and an anomalous right coronary artery. Intact LV systolic function. Successful placement of a drug-eluting stent to the left circumflex decreasing a subtotal lesion to 0 %. Signed by : Bryant Beckford MD Electronically Approved : 08/28/2018 16:35:22
--- NOTE | 2018-08-28 18:40 | NUR ---
arterial line removed by vascular lab with hemostasis at 1755. pressure being taken out of right radial tr band gradually. pt continues to be restless and attempting to get up out of the bed. pt stated " i know but it is bothering me alot". pt given ativan 1 mg iv as ordered to help pt relax. o2 sat continues in low to mid 90's. pt now resting quietly in the bed.
--- NOTE | 2018-08-28 18:49 | PDOC ---
PULMONARY PROGRESS NOTES Vitals Vital Signs Date Time Temp Pulse Resp B/P (MAP) Pulse Ox O2 Delivery O2 Flow Rate FiO2 08/28/18 18:39 101 18 145/67 (93) 94 Room Air 08/28/18 15:15 98.0 98.0 Lungs: Clear, Other Labs Laboratory Tests Test 08/27/18 16:13 08/27/18 16:23 08/27/18 18:02 08/27/18 19:25 D-Dimer (Melany) 0.44 ug/mlFEU (0.00-0.50) White Blood Count 12.5 x10^3/uL (4.0-11.0) Red Blood Count 5.44 x10^6/uL (3.50-5.40) Hemoglobin 16.4 g/dL (12.0-15.5) Hematocrit 48.7 % (36.0-47.0) Mean Corpuscular Volume 90 fL (79-100) Mean Corpuscular Hemoglobin 30 pg (25-35) Mean Corpuscular Hemoglobin Concent 34 g/dL (31-37) Red Cell Distribution Width 12.8 % (11.5-14.5) Platelet Count 308 x10^3/uL (140-400) Neutrophils (%) (Auto) 67 % (31-73) Lymphocytes (%) (Auto) 25 % (24-48) Monocytes (%) (Auto) 4 % (0-9) Eosinophils (%) (Auto) 2 % (0-3) Basophils (%) (Auto) 1 % (0-3) Neutrophils # (Auto) 8.4 x10^3uL (1.8-7.7) Lymphocytes # (Auto) 3.1 x10^3/uL (1.0-4.8) Monocytes # (Auto) 0.5 x10^3/uL (0.0-1.1) Eosinophils # (Auto) 0.3 x10^3/uL (0.0-0.7) Basophils # (Auto) 0.1 x10^3/uL (0.0-0.2) Prothrombin Time 11.8 SEC (11.7-14.0) Prothromb Time International Ratio 0.9 (0.8-1.1) Sodium Level 139 mmol/L (136-145) Potassium Level 3.8 mmol/L (3.5-5.1) Chloride Level 100 mmol/L (98-107) Carbon Dioxide Level 27 mmol/L (21-32) Anion Gap 12 (6-14) Blood Urea Nitrogen 13 mg/dL (7-20) Creatinine 1.1 mg/dL (0.6-1.0) Estimated GFR (Cockcroft-Gault) 51.2 BUN/Creatinine Ratio 12 (6-20) Glucose Level 182 mg/dL (70-99) Calcium Level 9.7 mg/dL (8.5-10.1) Magnesium Level 1.9 mg/dL (1.8-2.4) Total Bilirubin 0.3 mg/dL (0.2-1.0) Aspartate Amino Transf (AST/SGOT) 19 U/L (15-37) Alanine Aminotransferase (ALT/SGPT) 28 U/L (14-59) Alkaline Phosphatase 126 U/L (46-116) Creatine Kinase 62 U/L (26-192) Creatine Kinase MB (Mass) 1.0 ng/mL (0.0-3.6) Creatine Kinase MB Relative Index % (0-4) Troponin I Quantitative 0.064 ng/mL (0.000-0.055) 0.279 ng/mL (0.000-0.055) ZF-Qge-O-Type Natriuretic Peptide 64 pg/mL (0-124) Total Protein 7.7 g/dL (6.4-8.2) Albumin 3.6 g/dL (3.4-5.0) Albumin/Globulin Ratio 0.9 (1.0-1.7) Lipase 167 U/L (73-393) Glucose (Fingerstick) 139 mg/dL (70-99) Test 08/27/18 22:20 08/28/18 07:37 08/28/18 09:00 08/28/18 12:59 Troponin I Quantitative 0.879 ng/mL (0.000-0.055) 3.469 ng/mL (0.000-0.055) Glucose (Fingerstick) 315 mg/dL (70-99) 214 mg/dL (70-99) Triglycerides Level 123 mg/dL (0-150) Cholesterol Level 196 mg/dL (0-200) LDL Cholesterol, Calculated 132 mg/dL (0-100) VLDL Cholesterol, Calculated 25 mg/dL (0-40) Non-HDL Cholesterol Calculated 157 mg/dL (0-129) HDL Cholesterol 39 mg/dL (40-60) Cholesterol/HDL Ratio 5.0 Test 08/28/18 16:52 Glucose (Fingerstick) 222 mg/dL (70-99) Laboratory Tests Test 08/27/18 19:25 08/27/18 22:20 08/28/18 07:37 08/28/18 09:00 Troponin I Quantitative 0.279 ng/mL (0.000-0.055) 0.879 ng/mL (0.000-0.055) 3.469 ng/mL (0.000-0.055) Glucose (Fingerstick) 315 mg/dL (70-99) Triglycerides Level 123 mg/dL (0-150) Cholesterol Level 196 mg/dL (0-200) LDL Cholesterol, Calculated 132 mg/dL (0-100) VLDL Cholesterol, Calculated 25 mg/dL (0-40) Non-HDL Cholesterol Calculated 157 mg/dL (0-129) HDL Cholesterol 39 mg/dL (40-60) Cholesterol/HDL Ratio 5.0 Test 08/28/18 12:59 08/28/18 16:52 Glucose (Fingerstick) 214 mg/dL (70-99) 222 mg/dL (70-99) Medications Active Scripts Medications Dose Route/Sig Max Daily Dose Days Date Category Dose Instructions Levemir (Insulin Detemir) 100 Unit/1 Ml Vial 35 Unit SQ A.M. 08/15/17 Reported last dose this am next dose tomorrow am Symbicort 160-4.5 Mcg Inhaler (Budesonide/Formoterol Fumarate) 10.2 Gm Hfa.aer.ad 2 BID 01/26/17 Reported Amlodipine Besylate 10 Mg Tablet 10 DAILY 01/26/17 Reported laast dose this am next dose tomorrow Clonazepam 1 Mg Tablet 1 BID 01/26/17 Reported last dose this am next dose this night Atorvastatin Calcium 40 Mg Tablet 40 DAILY 01/26/17 Reported last dose last night next dose tonight Spironolactone 25 Mg Tablet 25 DAILY 01/26/17 Reported lasty dose this am next dose tomorrow am Metformin Hcl 500 Mg Tablet 500 BID 01/26/17 Reported last dose this am next dose with suppeer Losartan Potassium 100 Mg Tablet 100 DAILY 01/26/17 Reported last dose this am next dose tomorrow am Impression . NSTEMI S/P STENT TO CIX COPD DICTATED THANKS LUCY PAGE MD August 28, 2018 18:49
[2018-08-28] MEDS ORDERED: ATORVASTATIN CALCIUM 20 MG TABLET PO SCH (21:00)
[2018-08-28] MEDS: clonazePAM 0.5 MG TABLET PO SCH (21:28)
[2018-08-28] MEDS: ATORVASTATIN CALCIUM 40 MG TABLET. PO SCH (21:28)
[2018-08-28] MEDS: METOPROLOL TART IMMED RELEASE 25 MG TABLET. PO SCH (21:29)
--- NOTE | 2018-08-28 22:42 | NUR ---
patient transfer back to 210, right radial dressing dry and intact. right femoral dsg dry and intact. no c/o pain at this time
[2018-08-29 03:45] VITALS: BP 137/83
[2018-08-29 06:22] LABS: BASO % 0 % (0-3); EOS % 0 % (0-3); HEMATOCRIT 43.9 % (36.0-47.0); HEMOGLOBIN 14.7 g/dL (12.0-15.5); LYMPH # 1.6 x10^3/uL (1.0-4.8); LYMPH % 10 % (24-48); MEAN CORPUSCULAR HEMOGLOBIN 30 pg (25-35); MEAN CORPUSCULAR HGB CONC 34 g/dL (31-37); MEAN CORPUSCULAR VOLUME 90 fL (79-100); MONO # 0.6 x10^3/uL (0.0-1.1); MONO % 4 % (0-9); NEUT # 14.5 x10^3uL (1.8-7.7); NEUT % 87 % (31-73); PLATELET COUNT 286 x10^3/uL (140-400); WHITE BLOOD COUNT 16.7 x10^3/uL (4.0-11.0)
[2018-08-29 06:30] LABS: CALCIUM 9.1 mg/dL (8.5-10.1); GFR 57.1; MAGNESIUM 1.9 mg/dL (1.8-2.4); POTASSIUM 3.8 mmol/L (3.5-5.1)
[2018-08-29 07:00] VITALS: BP 132/77
--- NOTE | 2018-08-29 07:03 | CONS ---
DATE OF CONSULTATION: 08/28/2018 ATTENDING PHYSICIAN: Dr. Rebolledo. REASON FOR CONSULTATION: The patient seen in pulmonary consultation at the request of Dr. Rebolledo for COPD, chest pain. HISTORY OF PRESENT ILLNESS: The patient is a 57-year-old female that presented secondary to chest pain. She has underlying COPD. She was experiencing central chest pressure, radiating to jaws up, down her arms, associated with some nausea, shortness of breath and mild dizziness. The patient was evaluated by Cardiology. She actually underwent a cardiac catheterization earlier today. Having found severe single vessel coronary artery disease with a subtotal lesion in the mid to distal left circumflex vessel, she had [id number] LAD, intact left ventricular systolic function. There was successful placement of drug-eluting stent in the left circumflex, decreasing the subtotal stenosis to 0%. The patient is currently in the intensive care unit. She is not more short of breath. She is off of oxygen. PAST MEDICAL HISTORY: Otherwise remarkable for COPD, hypertension, hyperlipidemia, peripheral neuropathy, gastroesophageal reflux, colon cancer, anxiety, osteoarthritis, diabetes. PAST SURGICAL HISTORY: Status post appendectomy, total hip replacement, bilateral tubal ligation, colon resection. FAMILY HISTORY: Mother had coronary artery disease. Brother underwent coronary artery bypass grafting at the age of 58. SOCIAL HISTORY: Less than 1 pack of cigarettes a day. Denies any alcohol intake. REVIEW OF SYSTEMS: As indicated above, otherwise, a 10-point system was reviewed and negative. CONSTITUTIONAL: No fever or chills. EYES: No change in visual acuity. HEENT: No nasal congestion or sore throat. PULMONARY: As indicated above. CARDIOVASCULAR: No current chest pain or pressure. GASTROINTESTINAL: No nausea, vomiting, diarrhea. GENITOURINARY: No dysuria or frequency. MUSCULOSKELETAL: No localized muscle aches or joint pain. SKIN: No new skin rashes. ALLERGIES: RODOLFO INHIBITORS, IODINATED CONTRAST, NICKEL, SHELLFISH. PHYSICAL EXAMINATION: VITAL SIGNS: The patient was in no respiratory distress, currently on room air, saturation greater than 91%. HEENT: Eyes, the sclerae were nonicteric. NECK: Jugular venous distention was not elevated. No lymphadenopathy. CHEST: Full expansion. LUNGS: Adequate airway flow with no wheezes. CARDIOVASCULAR: Regular rate and rhythm with S1, S2, no S3. ABDOMEN: Soft, nontender, nondistended. EXTREMITIES: No clubbing, cyanosis or edema. LABORATORY DATA: White count was 12,000; hemoglobin and hematocrit 16 and 48. Electrolytes were noted. Troponin max was 3.46. Electrolytes normal. BUN 13, creatinine was 1.1. Chest x-ray was essentially clear. IMPRESSION: 1. Wwp-SM-[id number] elevation myocardial infarction status post stent to the circumflex as described above. 2. Accelerated hypertension. 3. Chest pain secondary to myocardial infarction. 4. Chronic obstructive pulmonary disease. 5. Tobacco dependent. 6. Hyperlipidemia. 7. Type 2 diabetes. PLAN: 1. Continue current support. 2. Follow Cardiology's input. 3. The patient instructed on the importance of discontinuing tobacco use. 4. Outpatient pulmonary function testing. 5. Continue nebulized treatments. I do appreciate the privilege in sharing in the patient's care. LUCY PAGE MD DR: ADDY/jhony JOB#: [id number] / [id number]
--- NOTE | 2018-08-29 07:33 | EKG ---
[facility] [address] [place] [address] Test Date: 2018-08-29 Test Time: 07:11:01 Pat Name: TIFFANIE FRIED Department: Room: 210 1 Gender: F Floor Representative: BRITTANIE : 1960 Requested By: JANE LOO Order Number: [id number] Reading MD: Kameron Kearns Measurements Intervals [place] Rate: 91 P: 52 MS: 190 QRS: -53 QRSD: 82 T: 8 QT: 360 QTc: 444 Interpretive Statements SINUS RHYTHM ABNORMAL LEFT AXIS DEVIATION QRS(T) CONTOUR ABNORMALITY CONSIDER ANTEROSEPTAL MYOCARDIAL DAMAGE CONSISTENT WITH INFERIOR INFARCT PROBABLY OLD ABNORMAL ECG Electronically Signed On 09-22-2018 11:44:32 CDT by Kameron Kearns
[2018-08-29] MEDS ORDERED: ASPIRIN ENTERIC COATED 81 MG TABLET.DR. PO SCH (08:00)
[2018-08-29] MEDS ORDERED: ASPIRIN ENTERIC COATED 325 MG TABLET.DR. PO SCH (08:00)
[2018-08-29] MEDS: BUDESONIDE 0.5 MG/2 ML NEBU. NEB SCH (08:10)
[2018-08-29] MEDS: clonazePAM 0.5 MG TABLET PO SCH (08:25)
[2018-08-29] MEDS: amLODIPine BESYLATE 10 MG TABLET PO SCH (08:25)
[2018-08-29] MEDS: LOSARTAN POTASSIUM 50 MG TABLET. PO SCH (08:26)
[2018-08-29] MEDS: SPIRONOLACTONE 25 MG TABLET PO SCH (08:26)
[2018-08-29] MEDS: METOPROLOL TART IMMED RELEASE 25 MG TABLET. PO SCH (08:27)
[2018-08-29] MEDS: INSULIN LISPRO 300 UNITS/3 ML INSULN.PEN. SQ SCH ×2 (08:32→12:05)
[2018-08-29] MEDS: INSULIN GLARGINE 300 UNITS/3 ML INSULN.PEN. SQ SCH (08:32)
[2018-08-29] MEDS ORDERED: TICAGRELOR 90 MG TABLET. PO SCH (09:00)
[2018-08-29 09:19] LABS: % BANDS 3 % (0-9); % LYMPHS 13 % (24-48); % MONOS 5 % (0-10); % SEGS 79 % (35-66); PLT ESTIMATE ADEQUATE (ADEQUATE)
[2018-08-29 11:00] VITALS: BP 142/86
--- NOTE | 2018-08-29 11:34 | PDOC ---
CARDIO Progress Notes Date and Time Date of Service 08/29/2018 Time of Evaluation 1115 Subjective Subjective: No Chest Pain, No shortness of breath, No Palpitations Vitals Vitals Vital Signs Date Time Temp Pulse Resp B/P (MAP) Pulse Ox O2 Delivery O2 Flow Rate FiO2 08/29/18 08:27 101 132/77 08/29/18 08:10 94 Room Air 08/29/18 07:00 97.2 16 97.2 Weight Weight [ ] Input and Output Intake and Output Intake and Output 08/29/18 06:59 Intake Total 1470 ml Output Total 1150 ml Balance 320 ml Intake Oral 910 ml IV Total 560 ml Output Urine Total 1150 ml # Voids 1 Laboratory Labs Laboratory Tests Test 08/28/18 12:59 08/28/18 16:52 08/28/18 22:02 08/29/18 05:33 Glucose (Fingerstick) 214 mg/dL (70-99) 222 mg/dL (70-99) 208 mg/dL (70-99) White Blood Count 16.7 x10^3/uL (4.0-11.0) Red Blood Count 4.90 x10^6/uL (3.50-5.40) Hemoglobin 14.7 g/dL (12.0-15.5) Hematocrit 43.9 % (36.0-47.0) Mean Corpuscular Volume 90 fL (79-100) Mean Corpuscular Hemoglobin 30 pg (25-35) Mean Corpuscular Hemoglobin Concent 34 g/dL (31-37) Red Cell Distribution Width 13.0 % (11.5-14.5) Platelet Count 286 x10^3/uL (140-400) Neutrophils (%) (Auto) 87 % (31-73) Lymphocytes (%) (Auto) 10 % (24-48) Monocytes (%) (Auto) 4 % (0-9) Eosinophils (%) (Auto) 0 % (0-3) Basophils (%) (Auto) 0 % (0-3) Neutrophils # (Auto) 14.5 x10^3uL (1.8-7.7) Lymphocytes # (Auto) 1.6 x10^3/uL (1.0-4.8) Monocytes # (Auto) 0.6 x10^3/uL (0.0-1.1) Eosinophils # (Auto) 0.0 x10^3/uL (0.0-0.7) Basophils # (Auto) 0.0 x10^3/uL (0.0-0.2) Segmented Neutrophils % 79 % (35-66) Band Neutrophils % 3 % (0-9) Lymphocytes % 13 % (24-48) Monocytes % 5 % (0-10) Platelet Estimate Adequate (ADEQUATE) Sodium Level 137 mmol/L (136-145) Potassium Level 3.8 mmol/L (3.5-5.1) Chloride Level 100 mmol/L (98-107) Carbon Dioxide Level 24 mmol/L (21-32) Anion Gap 13 (6-14) Blood Urea Nitrogen 16 mg/dL (7-20) Creatinine 1.0 mg/dL (0.6-1.0) Estimated GFR (Cockcroft-Gault) 57.1 Glucose Level 280 mg/dL (70-99) Calcium Level 9.1 mg/dL (8.5-10.1) Magnesium Level 1.9 mg/dL (1.8-2.4) Test 08/29/18 07:45 Glucose (Fingerstick) 258 mg/dL (70-99) Physical Exam HEENT: Neck Supple W Full Motion Chest: Symmetric LUNGS: Clear to Auscultation Heart: S1S2, RRR (SR) Abdomen: Soft N/T Extremities: No Edema, No Calf Tenderness Neurology: alert, oriented, follow commands Other Exams right wrist and right groin arteriomtomy site intact, no erythema or swelling. No pain. Neurovascular status to right hand and bilateral LE intact. Assessment Assessment 2. 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 Accelerated hypertension; controlled. EF and WM nml 4. Hyperlipidemia; statin 5. Diabetes, II 6. COPD with tobaccoism Recommendations 1. Cardiac rehab, smoking cessation 2. ECASA 81 mg and birlinta Resume metformin tomorrow PM 3. Continue current BP regimen including losartan and metoprolol. 4. Statin. Diet modification. 5. Follow with Dr. Kearns. on September 28 at10 AM CRISTINA MACEDO APRN August 29, 2018 11:34
--- NOTE | 2018-08-29 12:53 | PDOC ---
PULMONARY PROGRESS NOTES Subjective no soa Vitals Vital Signs Date Time Temp Pulse Resp B/P (MAP) Pulse Ox O2 Delivery O2 Flow Rate FiO2 08/29/18 11:00 98.6 85 12 142/86 (104) 97 Room Air 98.6 General: Alert, No acute distress Lungs: Clear Cardiovascular: S1 Abdomen: Soft Neuro Exam: Alert Extremities: No Edema Skin: Warm Labs Laboratory Tests Test 08/27/18 16:13 08/27/18 16:23 08/27/18 18:02 08/27/18 19:25 D-Dimer (Melany) 0.44 ug/mlFEU (0.00-0.50) White Blood Count 12.5 x10^3/uL (4.0-11.0) Red Blood Count 5.44 x10^6/uL (3.50-5.40) Hemoglobin 16.4 g/dL (12.0-15.5) Hematocrit 48.7 % (36.0-47.0) Mean Corpuscular Volume 90 fL (79-100) Mean Corpuscular Hemoglobin 30 pg (25-35) Mean Corpuscular Hemoglobin Concent 34 g/dL (31-37) Red Cell Distribution Width 12.8 % (11.5-14.5) Platelet Count 308 x10^3/uL (140-400) Neutrophils (%) (Auto) 67 % (31-73) Lymphocytes (%) (Auto) 25 % (24-48) Monocytes (%) (Auto) 4 % (0-9) Eosinophils (%) (Auto) 2 % (0-3) Basophils (%) (Auto) 1 % (0-3) Neutrophils # (Auto) 8.4 x10^3uL (1.8-7.7) Lymphocytes # (Auto) 3.1 x10^3/uL (1.0-4.8) Monocytes # (Auto) 0.5 x10^3/uL (0.0-1.1) Eosinophils # (Auto) 0.3 x10^3/uL (0.0-0.7) Basophils # (Auto) 0.1 x10^3/uL (0.0-0.2) Prothrombin Time 11.8 SEC (11.7-14.0) Prothromb Time International Ratio 0.9 (0.8-1.1) Sodium Level 139 mmol/L (136-145) Potassium Level 3.8 mmol/L (3.5-5.1) Chloride Level 100 mmol/L (98-107) Carbon Dioxide Level 27 mmol/L (21-32) Anion Gap 12 (6-14) Blood Urea Nitrogen 13 mg/dL (7-20) Creatinine 1.1 mg/dL (0.6-1.0) Estimated GFR (Cockcroft-Gault) 51.2 BUN/Creatinine Ratio 12 (6-20) Glucose Level 182 mg/dL (70-99) Calcium Level 9.7 mg/dL (8.5-10.1) Magnesium Level 1.9 mg/dL (1.8-2.4) Total Bilirubin 0.3 mg/dL (0.2-1.0) Aspartate Amino Transf (AST/SGOT) 19 U/L (15-37) Alanine Aminotransferase (ALT/SGPT) 28 U/L (14-59) Alkaline Phosphatase 126 U/L (46-116) Creatine Kinase 62 U/L (26-192) Creatine Kinase MB (Mass) 1.0 ng/mL (0.0-3.6) Creatine Kinase MB Relative Index % (0-4) Troponin I Quantitative 0.064 ng/mL (0.000-0.055) 0.279 ng/mL (0.000-0.055) TF-Ota-C-Type Natriuretic Peptide 64 pg/mL (0-124) Total Protein 7.7 g/dL (6.4-8.2) Albumin 3.6 g/dL (3.4-5.0) Albumin/Globulin Ratio 0.9 (1.0-1.7) Lipase 167 U/L (73-393) Glucose (Fingerstick) 139 mg/dL (70-99) Test 08/27/18 22:20 08/28/18 07:37 08/28/18 09:00 08/28/18 12:59 Troponin I Quantitative 0.879 ng/mL (0.000-0.055) 3.469 ng/mL (0.000-0.055) Glucose (Fingerstick) 315 mg/dL (70-99) 214 mg/dL (70-99) Triglycerides Level 123 mg/dL (0-150) Cholesterol Level 196 mg/dL (0-200) LDL Cholesterol, Calculated 132 mg/dL (0-100) VLDL Cholesterol, Calculated 25 mg/dL (0-40) Non-HDL Cholesterol Calculated 157 mg/dL (0-129) HDL Cholesterol 39 mg/dL (40-60) Cholesterol/HDL Ratio 5.0 Test 08/28/18 16:52 08/28/18 22:02 08/29/18 05:33 08/29/18 07:45 Glucose (Fingerstick) 222 mg/dL (70-99) 208 mg/dL (70-99) 258 mg/dL (70-99) White Blood Count 16.7 x10^3/uL (4.0-11.0) Red Blood Count 4.90 x10^6/uL (3.50-5.40) Hemoglobin 14.7 g/dL (12.0-15.5) Hematocrit 43.9 % (36.0-47.0) Mean Corpuscular Volume 90 fL (79-100) Mean Corpuscular Hemoglobin 30 pg (25-35) Mean Corpuscular Hemoglobin Concent 34 g/dL (31-37) Red Cell Distribution Width 13.0 % (11.5-14.5) Platelet Count 286 x10^3/uL (140-400) Neutrophils (%) (Auto) 87 % (31-73) Lymphocytes (%) (Auto) 10 % (24-48) Monocytes (%) (Auto) 4 % (0-9) Eosinophils (%) (Auto) 0 % (0-3) Basophils (%) (Auto) 0 % (0-3) Neutrophils # (Auto) 14.5 x10^3uL (1.8-7.7) Lymphocytes # (Auto) 1.6 x10^3/uL (1.0-4.8) Monocytes # (Auto) 0.6 x10^3/uL (0.0-1.1) Eosinophils # (Auto) 0.0 x10^3/uL (0.0-0.7) Basophils # (Auto) 0.0 x10^3/uL (0.0-0.2) Segmented Neutrophils % 79 % (35-66) Band Neutrophils % 3 % (0-9) Lymphocytes % 13 % (24-48) Monocytes % 5 % (0-10) Platelet Estimate Adequate (ADEQUATE) Sodium Level 137 mmol/L (136-145) Potassium Level 3.8 mmol/L (3.5-5.1) Chloride Level 100 mmol/L (98-107) Carbon Dioxide Level 24 mmol/L (21-32) Anion Gap 13 (6-14) Blood Urea Nitrogen 16 mg/dL (7-20) Creatinine 1.0 mg/dL (0.6-1.0) Estimated GFR (Cockcroft-Gault) 57.1 Glucose Level 280 mg/dL (70-99) Calcium Level 9.1 mg/dL (8.5-10.1) Magnesium Level 1.9 mg/dL (1.8-2.4) Test 08/29/18 11:46 Glucose (Fingerstick) 230 mg/dL (70-99) Laboratory Tests Test 08/28/18 12:59 08/28/18 16:52 08/28/18 22:02 08/29/18 05:33 Glucose (Fingerstick) 214 mg/dL (70-99) 222 mg/dL (70-99) 208 mg/dL (70-99) White Blood Count 16.7 x10^3/uL (4.0-11.0) Red Blood Count 4.90 x10^6/uL (3.50-5.40) Hemoglobin 14.7 g/dL (12.0-15.5) Hematocrit 43.9 % (36.0-47.0) Mean Corpuscular Volume 90 fL (79-100) Mean Corpuscular Hemoglobin 30 pg (25-35) Mean Corpuscular Hemoglobin Concent 34 g/dL (31-37) Red Cell Distribution Width 13.0 % (11.5-14.5) Platelet Count 286 x10^3/uL (140-400) Neutrophils (%) (Auto) 87 % (31-73) Lymphocytes (%) (Auto) 10 % (24-48) Monocytes (%) (Auto) 4 % (0-9) Eosinophils (%) (Auto) 0 % (0-3) Basophils (%) (Auto) 0 % (0-3) Neutrophils # (Auto) 14.5 x10^3uL (1.8-7.7) Lymphocytes # (Auto) 1.6 x10^3/uL (1.0-4.8) Monocytes # (Auto) 0.6 x10^3/uL (0.0-1.1) Eosinophils # (Auto) 0.0 x10^3/uL (0.0-0.7) Basophils # (Auto) 0.0 x10^3/uL (0.0-0.2) Segmented Neutrophils % 79 % (35-66) Band Neutrophils % 3 % (0-9) Lymphocytes % 13 % (24-48) Monocytes % 5 % (0-10) Platelet Estimate Adequate (ADEQUATE) Sodium Level 137 mmol/L (136-145) Potassium Level 3.8 mmol/L (3.5-5.1) Chloride Level 100 mmol/L (98-107) Carbon Dioxide Level 24 mmol/L (21-32) Anion Gap 13 (6-14) Blood Urea Nitrogen 16 mg/dL (7-20) Creatinine 1.0 mg/dL (0.6-1.0) Estimated GFR (Cockcroft-Gault) 57.1 Glucose Level 280 mg/dL (70-99) Calcium Level 9.1 mg/dL (8.5-10.1) Magnesium Level 1.9 mg/dL (1.8-2.4) Test 08/29/18 07:45 08/29/18 11:46 Glucose (Fingerstick) 258 mg/dL (70-99) 230 mg/dL (70-99) Medications Active Scripts Medications Dose Route/Sig Max Daily Dose Days Date Category Dose Instructions Levemir (Insulin Detemir) 100 Unit/1 Ml Vial 35 Unit SQ A.M. 08/15/17 Reported last dose this am next dose tomorrow am Symbicort 160-4.5 Mcg Inhaler (Budesonide/Formoterol Fumarate) 10.2 Gm Hfa.aer.ad 2 BID 01/26/17 Reported Amlodipine Besylate 10 Mg Tablet 10 DAILY 01/26/17 Reported laast dose this am next dose tomorrow Clonazepam 1 Mg Tablet 1 BID 01/26/17 Reported last dose this am next dose this night Atorvastatin Calcium 40 Mg Tablet 40 DAILY 01/26/17 Reported last dose last night next dose tonight Spironolactone 25 Mg Tablet 25 DAILY 01/26/17 Reported lasty dose this am next dose tomorrow am Metformin Hcl 500 Mg Tablet 500 BID 01/26/17 Reported last dose this am next dose with suppeer Losartan Potassium 100 Mg Tablet 100 DAILY 01/26/17 Reported last dose this am next dose tomorrow am Impression . 1. Lhs-CE-ixhazzo elevation myocardial infarction status post stent to the circumflex as described above. 2. Accelerated hypertension. 3. Chest pain secondary to myocardial infarction. 4. Chronic obstructive pulmonary disease. 5. Tobacco dependent. 6. Hyperlipidemia. 7. Type 2 diabetes. Plan . 1. Continue current support. 2. Follow Cardiology's input. 3. The patient instructed on the importance of discontinuing tobacco use. 4. Outpatient pulmonary function testing. 5. Continue nebulized treatments. ok with [facility] KRISTIN PAGAN MD August 29, 2018 12:52
--- NOTE | 2018-08-29 13:07 | PDOC ---
[employer] PROGRESS NOTE Chief Complaint Chief Complaint NSTEMI - s/p PCI 08/28 1 stent to L circumflex COPD w/ tobacco abuse disorder HTN Urine incontinence hyperosmolar non-ketotic state in DM2 DJD right hip DJD left hip Obstructed umbilical hernia Morbid obesity History of Present Illness History of Present Illness Patient seen and examined She notes continued bleeding from R radial catheterization site, however Wound dressings were clean and intact She denies any chest pain Counseled patient about smoking cessation in depth Vitals Vitals Vital Signs Date Time Temp Pulse Resp B/P (MAP) Pulse Ox O2 Delivery O2 Flow Rate FiO2 08/29/18 11:00 98.6 85 12 142/86 (104) 97 Room Air 98.6 Physical Exam General: Alert, Oriented X3, Cooperative, No acute distress Heart: Regular rate, Normal S1, Normal S2 Lungs: Clear Abdomen: Soft, No tenderness Extremities: No edema, Normal pulses Skin: No significant lesion Labs LABS Laboratory Tests Test 08/28/18 12:59 08/28/18 16:52 08/28/18 22:02 08/29/18 05:33 Glucose (Fingerstick) 214 mg/dL (70-99) 222 mg/dL (70-99) 208 mg/dL (70-99) White Blood Count 16.7 x10^3/uL (4.0-11.0) Red Blood Count 4.90 x10^6/uL (3.50-5.40) Hemoglobin 14.7 g/dL (12.0-15.5) Hematocrit 43.9 % (36.0-47.0) Mean Corpuscular Volume 90 fL (79-100) Mean Corpuscular Hemoglobin 30 pg (25-35) Mean Corpuscular Hemoglobin Concent 34 g/dL (31-37) Red Cell Distribution Width 13.0 % (11.5-14.5) Platelet Count 286 x10^3/uL (140-400) Neutrophils (%) (Auto) 87 % (31-73) Lymphocytes (%) (Auto) 10 % (24-48) Monocytes (%) (Auto) 4 % (0-9) Eosinophils (%) (Auto) 0 % (0-3) Basophils (%) (Auto) 0 % (0-3) Neutrophils # (Auto) 14.5 x10^3uL (1.8-7.7) Lymphocytes # (Auto) 1.6 x10^3/uL (1.0-4.8) Monocytes # (Auto) 0.6 x10^3/uL (0.0-1.1) Eosinophils # (Auto) 0.0 x10^3/uL (0.0-0.7) Basophils # (Auto) 0.0 x10^3/uL (0.0-0.2) Segmented Neutrophils % 79 % (35-66) Band Neutrophils % 3 % (0-9) Lymphocytes % 13 % (24-48) Monocytes % 5 % (0-10) Platelet Estimate Adequate (ADEQUATE) Sodium Level 137 mmol/L (136-145) Potassium Level 3.8 mmol/L (3.5-5.1) Chloride Level 100 mmol/L (98-107) Carbon Dioxide Level 24 mmol/L (21-32) Anion Gap 13 (6-14) Blood Urea Nitrogen 16 mg/dL (7-20) Creatinine 1.0 mg/dL (0.6-1.0) Estimated GFR (Cockcroft-Gault) 57.1 Glucose Level 280 mg/dL (70-99) Calcium Level 9.1 mg/dL (8.5-10.1) Magnesium Level 1.9 mg/dL (1.8-2.4) Test 08/29/18 07:45 08/29/18 11:46 Glucose (Fingerstick) 258 mg/dL (70-99) 230 mg/dL (70-99) Review of Systems Review of Systems Patient reports R radial bleeding from initial catheter site Patient denies N/V or abdominal pain Assessment and Plan Assessmemt and Plan Problems Medical Problems: (1) Chest pain Status: Acute (2) Elevated troponin Status: Acute Assessment NSTEMI - s/p PCI 08/28 1 stent to L circumflex COPD w/ tobacco abuse disorder HTN Urine incontinence hyperosmolar non-ketotic state in DM2 DJD right hip DJD left hip Obstructed umbilical hernia Morbid obesity Plan Cardiac monitoring Wound care ASA 81 mg Birlinta Statin Losartan and metoprolol Smoking cessation Home meds DVT ppx Discharge when okay with cardiology Problems: (1) Back pain (2) Hyperglycemia (3) Incontinent of urine (4) 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 Labs Laboratory Tests Test 08/27/18 16:13 08/27/18 16:23 08/27/18 18:02 08/27/18 19:25 D-Dimer (Melany) 0.44 ug/mlFEU (0.00-0.50) White Blood Count 12.5 x10^3/uL (4.0-11.0) Red Blood Count 5.44 x10^6/uL (3.50-5.40) Hemoglobin 16.4 g/dL (12.0-15.5) Hematocrit 48.7 % (36.0-47.0) Mean Corpuscular Volume 90 fL (79-100) Mean Corpuscular Hemoglobin 30 pg (25-35) Mean Corpuscular Hemoglobin Concent 34 g/dL (31-37) Red Cell Distribution Width 12.8 % (11.5-14.5) Platelet Count 308 x10^3/uL (140-400) Neutrophils (%) (Auto) 67 % (31-73) Lymphocytes (%) (Auto) 25 % (24-48) Monocytes (%) (Auto) 4 % (0-9) Eosinophils (%) (Auto) 2 % (0-3) Basophils (%) (Auto) 1 % (0-3) Neutrophils # (Auto) 8.4 x10^3uL (1.8-7.7) Lymphocytes # (Auto) 3.1 x10^3/uL (1.0-4.8) Monocytes # (Auto) 0.5 x10^3/uL (0.0-1.1) Eosinophils # (Auto) 0.3 x10^3/uL (0.0-0.7) Basophils # (Auto) 0.1 x10^3/uL (0.0-0.2) Prothrombin Time 11.8 SEC (11.7-14.0) Prothromb Time International Ratio 0.9 (0.8-1.1) Sodium Level 139 mmol/L (136-145) Potassium Level 3.8 mmol/L (3.5-5.1) Chloride Level 100 mmol/L (98-107) Carbon Dioxide Level 27 mmol/L (21-32) Anion Gap 12 (6-14) Blood Urea Nitrogen 13 mg/dL (7-20) Creatinine 1.1 mg/dL (0.6-1.0) Estimated GFR (Cockcroft-Gault) 51.2 BUN/Creatinine Ratio 12 (6-20) Glucose Level 182 mg/dL (70-99) Calcium Level 9.7 mg/dL (8.5-10.1) Magnesium Level 1.9 mg/dL (1.8-2.4) Total Bilirubin 0.3 mg/dL (0.2-1.0) Aspartate Amino Transf (AST/SGOT) 19 U/L (15-37) Alanine Aminotransferase (ALT/SGPT) 28 U/L (14-59) Alkaline Phosphatase 126 U/L (46-116) Creatine Kinase 62 U/L (26-192) Creatine Kinase MB (Mass) 1.0 ng/mL (0.0-3.6) Creatine Kinase MB Relative Index % (0-4) Troponin I Quantitative 0.064 ng/mL (0.000-0.055) 0.279 ng/mL (0.000-0.055) FK-Kor-F-Type Natriuretic Peptide 64 pg/mL (0-124) Total Protein 7.7 g/dL (6.4-8.2) Albumin 3.6 g/dL (3.4-5.0) Albumin/Globulin Ratio 0.9 (1.0-1.7) Lipase 167 U/L (73-393) Glucose (Fingerstick) 139 mg/dL (70-99) Test 08/27/18 22:20 08/28/18 07:37 08/28/18 09:00 08/28/18 12:59 Troponin I Quantitative 0.879 ng/mL (0.000-0.055) 3.469 ng/mL (0.000-0.055) Glucose (Fingerstick) 315 mg/dL (70-99) 214 mg/dL (70-99) Triglycerides Level 123 mg/dL (0-150) Cholesterol Level 196 mg/dL (0-200) LDL Cholesterol, Calculated 132 mg/dL (0-100) VLDL Cholesterol, Calculated 25 mg/dL (0-40) Non-HDL Cholesterol Calculated 157 mg/dL (0-129) HDL Cholesterol 39 mg/dL (40-60) Cholesterol/HDL Ratio 5.0 Test 08/28/18 16:52 08/28/18 22:02 08/29/18 05:33 08/29/18 07:45 Glucose (Fingerstick) 222 mg/dL (70-99) 208 mg/dL (70-99) 258 mg/dL (70-99) White Blood Count 16.7 x10^3/uL (4.0-11.0) Red Blood Count 4.90 x10^6/uL (3.50-5.40) Hemoglobin 14.7 g/dL (12.0-15.5) Hematocrit 43.9 % (36.0-47.0) Mean Corpuscular Volume 90 fL (79-100) Mean Corpuscular Hemoglobin 30 pg (25-35) Mean Corpuscular Hemoglobin Concent 34 g/dL (31-37) Red Cell Distribution Width 13.0 % (11.5-14.5) Platelet Count 286 x10^3/uL (140-400) Neutrophils (%) (Auto) 87 % (31-73) Lymphocytes (%) (Auto) 10 % (24-48) Monocytes (%) (Auto) 4 % (0-9) Eosinophils (%) (Auto) 0 % (0-3) Basophils (%) (Auto) 0 % (0-3) Neutrophils # (Auto) 14.5 x10^3uL (1.8-7.7) Lymphocytes # (Auto) 1.6 x10^3/uL (1.0-4.8) Monocytes # (Auto) 0.6 x10^3/uL (0.0-1.1) Eosinophils # (Auto) 0.0 x10^3/uL (0.0-0.7) Basophils # (Auto) 0.0 x10^3/uL (0.0-0.2) Segmented Neutrophils % 79 % (35-66) Band Neutrophils % 3 % (0-9) Lymphocytes % 13 % (24-48) Monocytes % 5 % (0-10) Platelet Estimate Adequate (ADEQUATE) Sodium Level 137 mmol/L (136-145) Potassium Level 3.8 mmol/L (3.5-5.1) Chloride Level 100 mmol/L (98-107) Carbon Dioxide Level 24 mmol/L (21-32) Anion Gap 13 (6-14) Blood Urea Nitrogen 16 mg/dL (7-20) Creatinine 1.0 mg/dL (0.6-1.0) Estimated GFR (Cockcroft-Gault) 57.1 Glucose Level 280 mg/dL (70-99) Calcium Level 9.1 mg/dL (8.5-10.1) Magnesium Level 1.9 mg/dL (1.8-2.4) Test 08/29/18 11:46 Glucose (Fingerstick) 230 mg/dL (70-99) Laboratory Tests Test 08/28/18 12:59 08/28/18 16:52 08/28/18 22:02 08/29/18 05:33 Glucose (Fingerstick) 214 mg/dL (70-99) 222 mg/dL (70-99) 208 mg/dL (70-99) White Blood Count 16.7 x10^3/uL (4.0-11.0) Red Blood Count 4.90 x10^6/uL (3.50-5.40) Hemoglobin 14.7 g/dL (12.0-15.5) Hematocrit 43.9 % (36.0-47.0) Mean Corpuscular Volume 90 fL (79-100) Mean Corpuscular Hemoglobin 30 pg (25-35) Mean Corpuscular Hemoglobin Concent 34 g/dL (31-37) Red Cell Distribution Width 13.0 % (11.5-14.5) Platelet Count 286 x10^3/uL (140-400) Neutrophils (%) (Auto) 87 % (31-73) Lymphocytes (%) (Auto) 10 % (24-48) Monocytes (%) (Auto) 4 % (0-9) Eosinophils (%) (Auto) 0 % (0-3) Basophils (%) (Auto) 0 % (0-3) Neutrophils # (Auto) 14.5 x10^3uL (1.8-7.7) Lymphocytes # (Auto) 1.6 x10^3/uL (1.0-4.8) Monocytes # (Auto) 0.6 x10^3/uL (0.0-1.1) Eosinophils # (Auto) 0.0 x10^3/uL (0.0-0.7) Basophils # (Auto) 0.0 x10^3/uL (0.0-0.2) Segmented Neutrophils % 79 % (35-66) Band Neutrophils % 3 % (0-9) Lymphocytes % 13 % (24-48) Monocytes % 5 % (0-10) Platelet Estimate Adequate (ADEQUATE) Sodium Level 137 mmol/L (136-145) Potassium Level 3.8 mmol/L (3.5-5.1) Chloride Level 100 mmol/L (98-107) Carbon Dioxide Level 24 mmol/L (21-32) Anion Gap 13 (6-14) Blood Urea Nitrogen 16 mg/dL (7-20) Creatinine 1.0 mg/dL (0.6-1.0) Estimated GFR (Cockcroft-Gault) 57.1 Glucose Level 280 mg/dL (70-99) Calcium Level 9.1 mg/dL (8.5-10.1) Magnesium Level 1.9 mg/dL (1.8-2.4) Test 08/29/18 07:45 08/29/18 11:46 Glucose (Fingerstick) 258 mg/dL (70-99) 230 mg/dL (70-99) Medications Current Medications Aspirin (Magdiel Aspirin) 325 mg 1X ONCE PO Last administered on 08/27/18at 16:44 ; Start 08/27/18 at 16:45; Stop 08/27/18 at 16:46; Status DC Sodium Chloride 1,000 ml @ 1,000 mls/hr 1X ONCE IV Last administered on 08/27/18at 16:44; Start 08/27/18 at 16:45; Stop 08/27/18 at 17:44; Status DC Fentanyl Citrate (Fentanyl 2ml Vial) 50 mcg 1X ONCE IV Last administered on 08/27/18at 16:44; Start 08/27/18 at 16:45; Stop 08/27/18 at 16:46; Status DC Ondansetron HCl (Zofran) 4 mg PRN Q8HRS PRN IV NAUSEA/VOMITING Last administered on 08/28/18at 14:41; Start 08/27/18 at 16:45; Stop 08/28/18 at 16:44; Status DC Fentanyl Citrate (Fentanyl 2ml Vial) 50 mcg PRN Q2HRS PRN IV PAIN SEVERE Last administered on 08/27/18 17:48; Start 08/27/18 at 16:45; Stop 08/28/18 at 12:23; Status DC Insulin Human Lispro (HumaLOG) 0-5 UNITS TIDWMEALS SQ Last administered on 08/29/18at 12:05; Start 08/27/18 at 17:00 Dextrose (Dextrose 50%-Water Syringe) 12.5 gm PRN Q15MIN PRN IV SEE COMMENTS; Start 08/27/18 at 16:45 Amlodipine Besylate (Norvasc) 10 mg DAILY PO Last administered on 08/29/18 08:25; Start 08/28/18 at 09:00 Atorvastatin Calcium (Lipitor) 40 mg QHS PO Last administered on 08/28/18 21:28; Start 08/27/18 at 21:00 Clonazepam (KlonoPIN) 1 mg BID PO Last administered on 08/28/18at 13:01; Start 08/27/18 at 21:00; Stop 08/28/18 at 21:11; Status DC Non-Formulary Medication (Albuterol Sulfate (Ventolin Hfa Inhaler)) 2 puff Q4HRS INH ; Start 08/27/18 at 20:00; Status UNV Non-Formulary Medication (Budesonide/ Formoterol Fumarate (Symbicort 160-4.5 Mcg Inhaler)) 2 puff BID .ROUTE ; Start 08/27/18 at 21:00; Status UNV Insulin Glargine (Lantus) 35 units DAILY SQ Last administered on 08/29/18 08:32; Start 08/28/18 at 09:00 Losartan Potassium (Cozaar) 100 mg DAILY PO Last administered on 08/29/18 08:26; Start 08/28/18 at 09:00 Metformin HCl (Glucophage) 500 mg BIDWMEALS PO Last administered on 08/27/18 21:11; Start 08/27/18 at 20:00; Stop 08/28/18 at 10:58; Status DC Spironolactone (Aldactone) 25 mg DAILY PO Last administered on 08/29/18 08:26; Start 08/28/18 at 09:00 Albuterol Sulfate (Ventolin Neb Soln) 2.5 mg Q4HRS NEB Last administered on 08/27/18 19:52; Start 08/27/18 at 20:00; Stop 08/28/18 at 14:25; Status DC Budesonide (Pulmicort) 0.5 mg RTBID NEB Last administered on 08/29/18at 08:10; Start 08/27/18 at 20:00 Nitroglycerin/ Dextrose 250 ml @ 0 mls/hr 1X ONCE IV Last administered on 08/27/18at 19:57; Start 08/27/18 at 19:30; Stop 08/27/18 at 19:35; Status DC Enoxaparin Sodium (Lovenox 100mg Syringe) 100 mg 1X ONCE SQ Last administered on 08/27/18 19:58; Start 08/27/18 at 20:00; Stop 08/27/18 at 20:01; Status DC Morphine Sulfate (Morphine Sulfate) 2 mg PRN Q4HRS PRN IV PAIN MILD Last administered on 08/27/18at 20:01; Start 08/27/18 at 19:30 Morphine Sulfate (Morphine Sulfate) 4 mg PRN Q4HRS PRN IV PAIN MODERATE Last administered on 08/28/18at 22:15; Start 08/27/18 at 19:30 Prednisone (Prednisone) 50 mg 1X ONCE PO Last administered on 08/27/18 23:24; Start 08/27/18 at 23:55; Stop 08/27/18 at 23:56; Status DC Prednisone (Prednisone) 50 mg 1X ONCE PO Last administered on 08/28/18at 05:08; Start 08/28/18 at 06:00; Stop 08/28/18 at 06:01; Status DC Enoxaparin Sodium (Lovenox 100mg Syringe) 100 mg Q12HR SQ Last administered on 08/28/18 08:26; Start 08/28/18 at 09:00; Stop 08/28/18 at 12:28; Status DC Iodixanol (Visipaque 320) 100 ml STK-MED ONCE .ROUTE ; Start 08/28/18 at 09:54; Stop 08/28/18 at 09:55; Status DC Lidocaine HCl (Xylocaine-Mpf 1% 2ml Vial) 2 ml STK-MED ONCE .ROUTE ; Start 08/28/18 at 09:54; Stop 08/28/18 at 09:55; Status DC Heparin Sodium/ Sodium Chloride 1,500 ml @ As Directed STK-MED ONCE .ROUTE ; Start 08/28/18 at 09:54; Stop 08/28/18 at 09:55; Status DC Methylprednisolone Sodium Succinate (SOLU-Medrol 125MG VIAL) 125 mg STK-MED ONCE .ROUTE ; Start 08/28/18 at 09:56; Stop 08/28/18 at 09:57; Status DC Fentanyl Citrate (Fentanyl 2ml Vial) 100 mcg STK-MED ONCE .ROUTE ; Start 08/28/18 at 09:56; Stop 08/28/18 at 09:57; Status DC Midazolam HCl (Versed) 2 mg STK-MED ONCE .ROUTE ; Start 08/28/18 at 09:56; Stop 08/28/18 at 09:57; Status DC Heparin Sodium (Porcine) (Heparin Sodium) 10,000 unit STK-MED ONCE .ROUTE ; Start 08/28/18 at 09:56; Stop 08/28/18 at 09:57; Status DC Verapamil HCl (Verapamil) 5 mg STK-MED ONCE .ROUTE ; Start 08/28/18 at 09:56; Stop 08/28/18 at 09:57; Status DC Famotidine (Pepcid Vial) 20 mg STK-MED ONCE .ROUTE ; Start 08/28/18 at 09:57; Stop 08/28/18 at 09:58; Status DC Diphenhydramine HCl (Benadryl) 50 mg STK-MED ONCE .ROUTE ; Start 08/28/18 at 09:57; Stop 08/28/18 at 09:58; Status DC Nitroglycerin (Nitroglycerin) 200 mcg STK-MED ONCE .ROUTE ; Start 08/28/18 at 09:57; Stop 08/28/18 at 09:58; Status DC Nitroglycerin (Nitroglycerin) 200 mcg 1X ONCE IART Last administered on 08/28/18at 12:14; Start 08/28/18 at 11:00; Stop 08/28/18 at 11:01; Status DC Verapamil HCl (Verapamil) 2.5 mg 1X ONCE IART Last administered on 08/28/18at 12:17; Start 08/28/18 at 11:00; Stop 08/28/18 at 11:01; Status DC Heparin Sodium (Porcine) (Heparin Sodium) 2,500 unit 1X ONCE IART Last administered on 08/28/18 12:17; Start 08/28/18 at 11:00; Stop 08/28/18 at 11:01; Status DC Heparin Sodium/ Sodium Chloride (HEPARIN for ARTERIAL LINE FLUSH) 1,000 unit 1X ONCE IART Last administered on 08/28/18 12:13; Start 08/28/18 at 11:00; Stop 08/28/18 at 11:01; Status DC Midazolam HCl (Versed) 2 mg 1X ONCE IV Last administered on 08/28/18 12:15; Start 08/28/18 at 11:00; Stop 08/28/18 at 11:01; Status DC Fentanyl Citrate (Fentanyl 2ml Vial) 100 mcg 1X ONCE IV Last administered on 08/28/18 12:16; Start 08/28/18 at 11:00; Stop 08/28/18 at 11:01; Status DC Iodixanol (Visipaque 320) 100 ml 1X ONCE IART Last administered on 08/28/18 12:14; Start 08/28/18 at 11:00; Stop 08/28/18 at 11:01; Status DC Lidocaine HCl (Xylocaine-Mpf 1% 2ml Vial) 2 ml 1X ONCE INJ Last administered on 08/28/18 12:15; Start 08/28/18 at 11:00; Stop 08/28/18 at 11:01; Status DC Diphenhydramine HCl (Benadryl) 50 mg 1X ONCE IVP Last administered on 08/28/18 12:15; Start 08/28/18 at 11:00; Stop 08/28/18 at 11:01; Status DC Methylprednisolone Sodium Succinate (SOLU-Medrol 125MG VIAL) 125 mg 1X ONCE IV Last administered on 08/28/18 12:15; Start 08/28/18 at 11:00; Stop 08/28/18 at 11:01; Status DC Famotidine (Pepcid Vial) 20 mg 1X ONCE IVP Last administered on 08/28/18 12:15; Start 08/28/18 at 11:00; Stop 08/28/18 at 11:01; Status DC Metformin HCl (Glucophage) 500 mg BIDWMEALS PO ; Start 08/31/18 at 08:00; Stop 08/31/18 at 08:00; Status DC Iodixanol (Visipaque 320) 100 ml STK-MED ONCE .ROUTE ; Start 08/28/18 at 11:00; Stop 08/28/18 at 11:01; Status DC Lidocaine HCl (Lidocaine 1% 20ml Vial) 20 ml STK-MED ONCE .ROUTE ; Start 08/28/18 at 11:06; Stop 08/28/18 at 11:07; Status DC Sodium Chloride 1,000 ml @ 100 mls/hr 1X ONCE IV Last administered on 08/28/18at 11:15; Start 08/28/18 at 11:15; Stop 08/28/18 at 21:14; Status DC Midazolam HCl (Versed) 2 mg STK-MED ONCE .ROUTE ; Start 08/28/18 at 11:09; Stop 08/28/18 at 11:10; Status DC Bivalirudin (Angiomax) 250 mg STK-MED ONCE IV ; Start 08/28/18 at 11:13; Stop 08/28/18 at 11:14; Status DC Bivalirudin (Angiomax) 250 mg 1X ONCE IV Last administered on 08/28/18at 12:14; Start 08/28/18 at 11:30; Stop 08/28/18 at 11:31; Status DC Lidocaine HCl (Lidocaine 1% 20ml Vial) 20 ml 1X ONCE INJ Last administered on 08/28/18at 12:14; Start 08/28/18 at 11:30; Stop 08/28/18 at 11:31; Status DC Iodixanol (Visipaque 320) 100 ml STK-MED ONCE .ROUTE ; Start 08/28/18 at 11:29; Stop 08/28/18 at 11:30; Status DC Heparin Sodium/ Sodium Chloride 500 ml @ As Directed STK-MED ONCE .ROUTE ; Start 08/28/18 at 11:40; Stop 08/28/18 at 11:41; Status DC Heparin Sodium/ Sodium Chloride 500 ml @ As Directed STK-MED ONCE .ROUTE ; Start 08/28/18 at 12:02; Stop 08/28/18 at 12:03; Status DC Clopidogrel Bisulfate (Plavix) 600 mg 1X ONCE PO ; Start 08/28/18 at 12:15; Stop 08/28/18 at 12:28; Status DC Clopidogrel Bisulfate (Plavix) 75 mg STK-MED ONCE .ROUTE ; Start 08/28/18 at 12:03; Stop 08/28/18 at 12:04; Status DC Aspirin (Magdiel Aspirin) 325 mg 1X ONCE PO Last administered on 08/28/18at 12:17; Start 08/28/18 at 12:15; Stop 08/28/18 at 12:16; Status DC Ticagrelor (Brilinta) 180 mg 1X ONCE PO Last administered on 08/28/18at 12:15; Start 08/28/18 at 12:15; Stop 08/28/18 at 12:16; Status DC Ticagrelor (Brilinta) 90 mg STK-MED ONCE .ROUTE ; Start 08/28/18 at 12:11; Stop 08/28/18 at 12:12; Status DC Aspirin (Magdiel Aspirin) 325 mg STK-MED ONCE .ROUTE ; Start 08/28/18 at 12:12; Stop 08/28/18 at 12:28; Status DC Fentanyl Citrate (Fentanyl 2ml Vial) 25 mcg 1X PRN PRN IV Give prior to sheath removal; Start 08/28/18 at 12:30; Stop 08/29/18 at 12:29; Status DC Sodium Chloride (Normal Saline Flush) 3 ml QSHIFT PRN IV AFTER MEDS AND BLOOD DRAWS; Start 08/28/18 at 12:30 Sodium Chloride 1,000 ml @ 75 mls/hr [id number] IV Last administered on 08/28/18at 13:05; Start 08/28/18 at 12:16; Stop 08/28/18 at 18:15; Status DC Aspirin (Ecotrin) 81 mg DAILYWBKFT PO Last administered on 08/29/18at 08:26; Start 08/29/18 at 08:00 Ticagrelor (Brilinta) 90 mg BID PO Last administered on 08/29/18at 08:25; Start 08/29/18 at 09:00 Atorvastatin Calcium (Lipitor) 20 mg QHS PO ; Start 08/28/18 at 21:00; Status UNV Acetaminophen (Tylenol) 650 mg PRN Q6HRS PRN PO MILD PAIN / TEMP Last administered on 08/28/18 22:12; Start 08/28/18 at 12:30 Fentanyl Citrate (Fentanyl 2ml Vial) 50 mcg PRN Q1HR PRN IV MODERATE OR SEVERE PAIN Last administered on 08/28/18 20:09; Start 08/28/18 at 12:30 Nitroglycerin (Nitrostat) 0.4 mg PRN Q5MIN PRN SL CHEST PAIN; Start 08/28/18 at 12:30 Amiodarone HCl 150 mg/Dextrose 103 ml @ 600 mls/hr 1X PRN PRN IV FOR VENTRICULAR TACHYCARDIA; Start 08/28/18 at 12:30 Lidocaine HCl (Lidocaine HCl 2% Abboject) 100 mg 1X PRN PRN IV FOR VENTRICULAR TACHYCARDIA; Start 08/28/18 at 12:30 Atropine Sulfate (ATROPINE 0.5mg SYRINGE) 0.5 mg PRN 1X PRN IV BRADYCARDIA; Start 08/28/18 at 12:30 Aspirin (Ecotrin) 81 mg DAILYWBKFT PO ; Start 08/29/18 at 08:00; Status UNV Cyclobenzaprine HCl (Flexeril) 10 mg PRN Q6HRS PRN PO MUSCLE SPASMS Last administered on 08/28/18 22:12; Start 08/28/18 at 13:30 Hydralazine HCl (Apresoline Inj) 10 mg PRN Q4HRS PRN IVP ELEVATED BP, SEE COMMENTS Last administered on 08/28/18at 22:13; Start 08/28/18 at 13:30 Albuterol Sulfate (Ventolin Neb Soln) 2.5 mg PRN Q4HRS PRN NEB SHORTNESS OF BREATH; Start 08/28/18 at 14:30 Metoprolol Tartrate (Lopressor) 25 mg BID PO Last administered on 08/29/18 08:27; Start 08/28/18 at 21:00 Lorazepam (Ativan) 1 mg PRN Q6HRS PRN PO ANXIETY / AGITATION; Start 08/28/18 at 16:30; Stop 08/28/18 at 17:48; Status DC Lorazepam (Ativan) 1 mg PRN Q6HRS PRN IV ANXIETY / AGITATION Last administered on 08/28/18 18:31; Start 08/28/18 at 17:45 Clonazepam (KlonoPIN) 1 mg BID PO Last administered on 5/14/19at 08:25; Start 08/28/18 at 21:30 Clopidogrel Bisulfate (Plavix) 600 mg STK-MED ONCE .ROUTE ; Start 08/28/18 at 12:00; Stop 08/29/18 at 11:37; Status DC Ticagrelor (Brilinta) 180 mg STK-MED ONCE .ROUTE ; Start 08/28/18 at 12:00; Stop 08/29/18 at 11:37; Status DC Active Scripts Active Reported Levemir (Insulin Detemir) 100 Unit/1 Ml Vial 35 Unit SQ A.M. last dose this am next dose tomorrow am Symbicort 160-4.5 Mcg Inhaler (Budesonide/Formoterol Fumarate) 10.2 Gm Hfa.aer.ad 2 BID Amlodipine Besylate 10 Mg Tablet 10 DAILY laast dose this am next dose tomorrow Clonazepam 1 Mg Tablet 1 BID last dose this am next dose this night Atorvastatin Calcium 40 Mg Tablet 40 DAILY last dose last night next dose tonight Spironolactone 25 Mg Tablet 25 DAILY lasty dose this am next dose tomorrow am Metformin Hcl 500 Mg Tablet 500 BID last dose this am next dose with suppeer Losartan Potassium 100 Mg Tablet 100 DAILY last dose this am next dose tomorrow am Vitals/I & O Vital Sign - Last 24 Hours 08/28/18 08/28/18 08/28/18 08/28/18 12:45 12:48 13:00 13:01 Pulse 88 88 88 Resp 22 20 B/P (MAP) 196/115 Pulse Ox 93 93 O2 Delivery Room Air Room Air Room Air 08/28/18 08/28/18 08/28/18 08/28/18 13:15 13:30 14:00 14:19 Pulse 88 88 94 Resp 20 Pulse Ox 93 93 93 O2 Delivery Room Air Room Air Room Air Room Air 08/28/18 08/28/18 08/28/18 08/28/18 14:30 15:15 15:15 15:20 Temp 98.0 98.0 Pulse 94 110 Resp 30 B/P (MAP) 187/94 (125) 189/94 (125) Pulse Ox 93 93 O2 Delivery Room Air Room Air Room Air 08/28/18 08/28/18 08/28/18 08/28/18 15:26 15:27 15:30 15:45 Pulse 91 110 100 Resp 30 28 28 B/P (MAP) 148/89 149/86 (107) 144/74 (97) Pulse Ox 93 93 93 O2 Delivery Room Air Room Air Room Air 08/28/18 08/28/18 08/28/18 08/28/18 16:00 16:01 16:15 16:30 Pulse 84 94 80 Resp 22 20 18 B/P (MAP) 130/61 (84) 130/61 (84) 133/66 (88) 134/66 (88) Pulse Ox 93 93 96 O2 Delivery Room Air Room Air Room Air 08/28/18 08/28/18 08/28/18 08/28/18 17:00 17:43 17:46 17:58 Pulse 94 100 100 Resp 18 20 18 18 B/P (MAP) 133/68 (89) 125/63 (83) 119/60 (79) Pulse Ox 94 94 92 92 O2 Delivery Room Air Room Air Room Air Room Air 08/28/18 08/28/18 08/28/18 08/28/18 18:08 18:10 18:39 19:00 Pulse 102 101 102 Resp 18 18 18 16 B/P (MAP) 124/60 (81) 145/67 (93) 137/74 (95) Pulse Ox 92 94 94 O2 Delivery Room Air Room Air Room Air 08/28/18 08/28/18 08/28/18 08/28/18 19:30 20:00 20:00 20:09 Temp 98.5 98.5 Pulse 102 106 Resp 12 14 B/P (MAP) 149/67 (94) 164/67 (99) Pulse Ox 94 96 94 O2 Delivery Room Air Room Air Room Air Room Air 08/28/18 08/28/18 08/28/18 08/28/18 20:30 21:00 21:04 21:29 Temp 98.5 98.5 Pulse 101 102 112 Resp 16 14 B/P (MAP) 160/95 (116) 163/67 (99) 160/94 Pulse Ox 96 96 96 O2 Delivery Room Air Room Air Room Air 08/28/18 08/28/18 08/28/18 08/28/18 22:00 22:13 22:15 22:20 Temp 97.7 97.7 Pulse 111 111 97 Resp 20 20 B/P (MAP) 184/113 (136) 184/113 169/102 (124) Pulse Ox 94 O2 Delivery Room Air Room Air 08/28/18 08/28/18 08/28/18 08/28/18 22:22 22:45 22:51 23:21 Pulse 94 100 Resp 18 B/P (MAP) 133/84 (100) 146/69 (94) O2 Delivery Room Air 08/29/18 08/29/18 08/29/18 08/29/18 03:45 07:00 08:00 08:10 Temp 97.8 97.2 97.8 97.2 Pulse 94 101 Resp 20 16 B/P (MAP) 137/83 (101) 132/77 (95) Pulse Ox 95 97 94 O2 Delivery Room Air Room Air Room Air Room Air 08/29/18 08/29/18 08/29/18 08/29/18 08:25 08:26 08:27 11:00 Temp 98.6 98.6 Pulse 101 101 101 85 Resp 12 B/P (MAP) 132/77 132/77 132/77 142/86 (104) Pulse Ox 97 O2 Delivery Room Air Intake and Output 08/28/18 08/28/18 08/29/18 14:59 22:59 06:59 Intake Total 150 ml 660 ml 660 ml Output Total 250 ml 600 ml 300 ml Balance -100 ml 60 ml 360 ml NARINDER CASTILLO III DO August 29, 2018 13:07
--- NOTE | 2018-08-29 14:47 | PDOC3 ---
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 (6) Cellulitis of left forearm (7) Hyperosmolar non-ketotic state in patient with type 2 diabetes mellitus (8) Degenerative joint disease of left hip (9) Degenerative joint disease of right hip (10) Elevated troponin (11) Chest pain (12) Obstructed umbilical hernia (13) BODY MASS INDEX 40.0-44.9, ADULT (14) Acute posthemorrhagic anemia Discharge Diagnosis: Discharge Diagnosis: Status post drug eluting stent placed to the circumflex and LAD Consults: Consults: Cardiology and pulmonary Procedures: Procedures: Cardiac catheter with 2 stents placed Hospital Course: Hospital Course: Patient is a pleasant middle-aged female presented with chest pain she also has known COPD We admitted the patient and consult cardiology and pulmonary We gave her IV steroids breathing treatments oxygen and did Flynn monitoring closely She was taken to the [facility] and received 2 stents Today she looks great I saw her and examined her heart tones were normal her lungs were clear we plan to discharge with close outpatient follow-up Disposition: Disposition/Orders: D/C to Home Activity: Activity: Resume previous activity Diet: Diet: Cardiac Medications: Home Meds Reported Medications Albuterol Sulfate (VENTOLIN HFA INHALER) 18 Gm Hfa.aer.ad, 2 PUFF INH Q4HRS for FOR ASTHMA, INHALER 0 Refills 08/15/17 Insulin Detemir (LEVEMIR) 100 Unit/1 Ml Vial, 35 UNIT SQ a.m. for diabetes, VIAL last dose this am next dose tomorrow am 08/15/17 Budesonide/Formoterol Fumarate (SYMBICORT 160-4.5 MCG INHALER) 10.2 Gm Hfa.aer.ad, 2 BID 01/26/17 Amlodipine Besylate (AMLODIPINE BESYLATE) 10 Mg Tablet, 10 DAILY for blood pressure laast dose this am next dose tomorrow 01/26/17 Clonazepam (CLONAZEPAM) 1 Mg Tablet, 1 BID for anxiety last dose this am next dose this night 01/26/17 Atorvastatin Calcium (ATORVASTATIN CALCIUM) 40 Mg Tablet, 40 DAILY for cholesterol last dose last night next dose tonight 01/26/17 Spironolactone (SPIRONOLACTONE) 25 Mg Tablet, 25 DAILY for diuretic lasty dose this am next dose tomorrow am 01/26/17 Metformin Hcl (METFORMIN HCL) 500 Mg Tablet, 500 BID for blood sugar last dose this am next dose with suppeer 01/26/17 Losartan Potassium (LOSARTAN POTASSIUM) 100 Mg Tablet, 100 DAILY last dose this am next dose tomorrow am 01/26/17 Scheduled Albuterol Sulfate (Ventolin Hfa Inhaler), 2 PUFF INH Q4HRS, (Reported) Amlodipine Besylate (Amlodipine Besylate), 10 DAILY, (Reported) Atorvastatin Calcium (Atorvastatin Calcium), 40 DAILY, (Reported) Budesonide/Formoterol Fumarate (Symbicort 160-4.5 Mcg Inhaler), 2 BID, ( Reported) Clonazepam (Clonazepam), 1 BID, (Reported) Insulin Detemir (Levemir), 35 UNIT SQ a.m., (Reported) Losartan Potassium (Losartan Potassium), 100 DAILY, (Reported) Metformin Hcl (Metformin Hcl), 500 BID, (Reported) Spironolactone (Spironolactone), 25 DAILY, (Reported) NARINDER CASTILLO III DO August 29, 2018 14:47
[2018-08-29] MEDS ORDERED: METO25TA4 PO (15:03)
--- NOTE | 2018-08-29 15:55 | NUR ---
Discharge Note: TIFFANIE FRIED [address] [place] [address] Discharge instructions and discharge home medications reviewed with Patient and a copy given. All questions have been answered and understanding verbalized. The following instructions and handouts were given: Coronary angiography with stent, care after and post cardiac catheterization care after Discontinued iv line Patient discharged to home with self care via ambulation
[2018-08-31] MEDS ORDERED: metFORMIN 500 MG TABLET PO SCH (08:00)
== END 2018-08-29 16:00 | disposition home or self-care (01) | DRG 246 ==
LOC: ER 16:12 → 2 NORTH 16:38 → 1 WEST ICU 08-28 14:15 → 2 NORTH 08-28 22:08
PROVIDERS: ADMIT Internal Medicine; ATTEND Internal Medicine
PROC: 027034Z Dilation of Coronary Artery, One Artery with Drug-eluting Intraluminal Device, Percutaneous Approach (ICD-10-PCS; principal; 2018-08-28)
PROC: 4A023N7 Measurement of Cardiac Sampling and Pressure, Left Heart, Percutaneous Approach (ICD-10-PCS; 2018-08-28)
PROC: B2111ZZ Fluoroscopy of Multiple Coronary Arteries using Low Osmolar Contrast (ICD-10-PCS; 2018-08-28)
PROC: B2151ZZ Fluoroscopy of Left Heart using Low Osmolar Contrast (ICD-10-PCS; 2018-08-28)
PROC: B3101ZZ Fluoroscopy of Thoracic Aorta using Low Osmolar Contrast (ICD-10-PCS; 2018-08-28)
DX: I21.4 Non-ST elevation (NSTEMI) myocardial infarction (principal); E11.00 Type 2 diabetes mellitus with hyperosmolarity without nonketotic hyperglycemic-hyperosmolar coma (NKHHC); Z68.41 Body mass index [BMI] 40.0-44.9, adult; F41.9 Anxiety disorder, unspecified; E11.42 Type 2 diabetes mellitus with diabetic polyneuropathy; E66.01 Morbid (severe) obesity due to excess calories; M19.90 Unspecified osteoarthritis, unspecified site; E78.00 Pure hypercholesterolemia, unspecified; I10 Essential (primary) hypertension; J44.9 Chronic obstructive pulmonary disease, unspecified; I25.10 Atherosclerotic heart disease of native coronary artery without angina pectoris; E78.5 Hyperlipidemia, unspecified; K21.9 Gastro-esophageal reflux disease without esophagitis; R32 Unspecified urinary incontinence; M16.12 Unilateral primary osteoarthritis, left hip; M16.11 Unilateral primary osteoarthritis, right hip; K42.9 Umbilical hernia without obstruction or gangrene; F17.210 Nicotine dependence, cigarettes, uncomplicated; Z96.643 Presence of artificial hip joint, bilateral; Z85.038 Personal history of other malignant neoplasm of large intestine; Z90.5 Acquired absence of kidney; Z90.49 Acquired absence of other specified parts of digestive tract; Z88.8 Allergy status to other drugs, medicaments and biological substances; Z91.041 Radiographic dye allergy status; Z91.013 Allergy to seafood; Z82.49 Family history of ischemic heart disease and other diseases of the circulatory system; Z98.51 Tubal ligation status; Z90.710 Acquired absence of both cervix and uterus; Z71.6 Tobacco abuse counseling
CPT/HCPCS: 36415; 71046; 80048; 80053; 80061; 82553; 82962; 83690; 83735; 83880; 84484; 85007; 85025; 85379; 85610; 92928; 93005; 93306; 93458; 94640; 94760; 99152; 99153; 99406; C1725; C1769; C1874; C1887; C1892; J0360; J0583; J1200; J1644; J1650; J1815; J2060; J2250; J2270; J2405; J2930; J3010; J3490; J7030; J7512; J7613; J7626; Q9967; 99285-25

== ENCOUNTER → 2019-02-05 | Outpatient (CLI) | payer OTHER, MEDICAID ==
[~2019-02-05] MED LIST changes: -CLON1TAB11; +CLONAZEPAM1 MG; +LISI1TAB19 PO; -LISI1TAB5 PO; +METO25TA4 PO
--- NOTE | 2019-02-05 16:51 | KCIC ---
Bilateral digital screening mammograms: Reason for examination: Routine screening. No previous examinations are available for comparison. Interpretation was made with the benefit of CAD. The skin and nipples show no abnormalities. No abnormal axillary lymph nodes are seen. The breast parenchyma shows scattered fibroglandular density. (Breast density: Category B.) There is a small nodular density measuring 1.1 cm in size in the left breast at the 2:00 B position. This could be an intramammary lymph node but recommend further evaluation with ultrasound. There are no other dominant masses, suspicious calcifications or architectural distortions. Impression: 1.1 cm nodule at the 2:00 B position of the left breast. Recommend further evaluation with ultrasound. BI-RADS Category 0: Incomplete. Needs additional imaging evaluation. "Our facility is accredited by the [employer] Mammography Program." This patient's information has been entered into a reminder system for the patient to be notified with the results of her examination and a target date for the next mammogram. Electronically signed by: Staci Burroughs MD (02/05/2019 4:48 PM) [facility]
== END | disposition home or self-care (01) ==
LOC: KCIC MAMMO 12:06
PROVIDERS: ATTEND Internal Medicine
DX: Z12.31 Encounter for screening mammogram for malignant neoplasm of breast (principal); N63.21 Unspecified lump in the left breast, upper outer quadrant
CPT/HCPCS: 77067

== ENCOUNTER → 2019-02-20 | Outpatient (CLI) | payer MEDICAID, OTHER ==
--- NOTE | 2019-02-20 16:05 | KCIC ---
Left breast ultrasound: Reason for examination: Nodular density on screening mammogram. Comparison is made to mammographic exam dated 02/05/2019. Ultrasound examination of the left breast was performed in the area of mammographic concern and at the axilla. In the 2:00 position 8 cm from the nipple, there is a 9.5 mm cystic lesion. No other cystic or solid nodules are seen. No abnormal appearing lymph nodes are seen in the axilla. IMPRESSION: 9.5 mm cyst corresponds to the nodule seen mammographically. Recommend routine mammographic follow-up. BI-RADS Category 2: Benign. "Our facility is accredited by the [employer] Mammography Program." This patient's information has been entered into a reminder system for the patient to be notified with the results of her examination and a target date for the next mammogram. Electronically signed by: Staci Burroughs MD (02/20/2019 4:02 PM) [facility]
== END | disposition home or self-care (01) ==
LOC: KCIC US 13:55
PROVIDERS: ATTEND Internal Medicine
DX: N63.21 Unspecified lump in the left breast, upper outer quadrant (principal)
CPT/HCPCS: 76641

== ENCOUNTER → 2019-06-04 | Outpatient (CLI) | payer MEDICARE, MEDICAID ==
[~2019-06-04] MED LIST changes: -BUPR300T4; +BUPR300T92
--- NOTE | 2019-06-04 16:49 | KCIC ---
CT LOW DOSE LUNG SCREENING Indication: Lung cancer screening, smoker 30+ years Technique: Noncontrast CT imaging was performed of the chest as per low dose screening protocol, multiplanar reconstruction images submitted. One or more of the following individualized dose reduction techniques were utilized for this examination: 1. Automated exposure control 2. Adjustment of the mA and/or kV according to patient size 3. Use of iterative reconstruction technique. Comparison: None Findings: There is no infiltrate, pleural effusion, or pneumothorax. There is very minimal pericardial fluid. There is density in the left mainstem bronchus as well as adjacent trachea and left lower lobe bronchus. Nodules include as seen on series 6:1 to 2 mm right upper lobe image 64, 2 mm right upper lobe image 125, to 3 mm right upper lobe image 97, to 3 mm left upper lobe image 95. Focus of left upper lobe lingular density near the lung bases is likely component of atelectasis. There is coronary calcification. No significantly enlarged nodes are identified of the chest. There is approximate 10 mm hypodense left thyroid nodule with mild peripheral calcification. There is also some heterogeneity of the right thyroid gland. There is cervical degenerative disc disease and spondylosis, also at the thoracolumbar junction. IMPRESSION: 1. There are small pulmonary nodules as stated, lung RADS category 2, 12 month low-dose CT recommended. 2. There is hypodense left thyroid lesion with mild peripheral calcification, more accurately characterized by ultrasound. 3. There is coronary calcification. Electronically signed by: Sourav Marin MD (06/04/2019 4:46 PM) [id number]
== END | disposition home or self-care (01) ==
LOC: KCIC CT 09:24
PROVIDERS: ATTEND Internal Medicine
DX: Z12.2 Encounter for screening for malignant neoplasm of respiratory organs (principal); R91.8 Other nonspecific abnormal finding of lung field; E04.1 Nontoxic single thyroid nodule; I25.10 Atherosclerotic heart disease of native coronary artery without angina pectoris; M47.812 Spondylosis without myelopathy or radiculopathy, cervical region; M50.30 Other cervical disc degeneration, unspecified cervical region; F17.210 Nicotine dependence, cigarettes, uncomplicated
CPT/HCPCS: G0297

== ENCOUNTER → 2019-07-25 | Outpatient (CLI) | payer MEDICARE, MEDICAID ==
--- NOTE | 2019-07-25 09:55 | RAD ---
US GUID NDL PLACE/ASPI/BX History:Left thyroid nodule. Comparison: Outside ultrasound June 19, 2019 Procedure: The risks, alternatives, and benefits of the procedure are discussed with the patient. Written informed consent is obtained. A time out procedure is performed. Neck prepped and draped in normal sterile fashion. 1% lidocaine was injected into the skin and soft tissue along route to the nodule of the thyroid. The procedure was difficult due to patient's body habitus and inability to tolerate breath-hold for extended period of time. The nodule moved with respirations and was small in size approximately 1.3 cm. Several times during the examination the patient needed to cough limiting ability to take samples. 4 separate passes were made with a 22-gauge needle. To and fro movement of the needle was performed in the nodule. Hemostasis is achieved. The patient tolerated the procedure well. There is no immediate complication. IMPRESSION: 1. Difficult ultrasound guided fine needle aspiration of a left thyroid nodule, as described. Pathology pending. Depending on pathology short-term ultrasound follow-up may be required. Electronically signed by: Yovanny Glover DO (07/25/2019 9:52 AM) [id number]
--- NOTE | 2019-07-26 11:06 | PATHOLOGY ---
Note [facility] Accession Number: [id number] TESTS RESULT FLAG UNITS REF RANGE LAB Clinician Provided Cytology Information No. of containers..01 Other (Miscellaneous) Source: LEFT THYROID NODULE DIAGNOSIS: LEFT THYROID NODULE INADEQUATE, INSUFFICIENT CELLS FOR STUDY. BETHESDA CATEGORY I. NONDIAGNOSTIC: VIRTUALLY ACELLULAR SPECIMEN. ABUNDANT RED BLOOD CELLS ARE PRESENT. THIS INTERPRETATION INCLUDES EVALUATION OF A CELL BLOCK. Signed out by: 02 Power Estevez MD, Pathologist NPI- [id number] Performed by: Kiara Marks, Agricultural Services Director ([facility]) Gross description: 01 30ML, CLEAR COLORLESS, 2FX 2AD 2H /LCS 07/25/2019 1527 Local FLAG LEGEND: L-Low Normal,H-High Normal,LL-Alert Low,HH-Alert High <-Panic Low,>-Panic High,A-Abnormal,AA-Critical Abnormal Performed at: [facility] [address] [place] [address] Ronnie Toney MD, [address] [address] Power Estevez MD, Specimen Comment: A courtesy copy of this report has been sent to [phone] Specimen Comment: A duplicate report has been generated due to demographic updates. Performed at: [address] [place], [place] [address] [address], [place], [place] [id number] MD Ronnie Toney MD Phone: [phone]
== END | disposition home or self-care (01) ==
LOC: US 07:40
PROVIDERS: ATTEND Surgery
DX: E04.1 Nontoxic single thyroid nodule (principal); Z91.041 Radiographic dye allergy status; Z91.013 Allergy to seafood; Z88.8 Allergy status to other drugs, medicaments and biological substances
CPT/HCPCS: 10005; 76942; 88173; 88305

== ENCOUNTER → 2019-12-07 | Outpatient (CLI) | payer MEDICARE, MEDICAID ==
[~2019-12-07] MED LIST changes: -LISI1TAB19 PO; +LISI1TAB37 PO; +REGADENOSON 0.4 MG/5 ML DISP.SYRIN. IV ONE; -WARF-78 PO; +WARF5TAB2 PO
--- NOTE | 2019-12-07 13:06 | CARD ---
MR#: [id number] Date of Study: 12/07/2019 Ordering Physician: BEVERLY VELASQUEZ, Referring Physician: BEVERLY VELASQUEZ, Tech: Ana Caballero APPROVED REPORT EXAM: Two-dimensional and M-mode echocardiogram with Doppler and color Doppler. Other Information Quality : AverageHR: 91bpm INDICATION Cardiac Disease: CAD IN 2018 RISK FACTORS Hypertension Hyperlipidemia Diabetes 2D DIMENSIONS RVDd3.1 (2.9-3.5cm)Left Atrium(2D)3.6 (1.6-4.0cm) IVSd1.1 (0.7-1.1cm)Aortic Root(2D)3.3 (2.0-3.7cm) LVDd4.3 (3.9-5.9cm)LVOT Diameter2.0 (1.8-2.4cm) PWd1.0 (0.7-1.1cm)LVDs2.9 (2.5-4.0cm) FS (%) 33.6 %SV53.0 ml Aortic Valve AoV Peak Ebenezer.109.0cm/sAoV VTI22.9cm AO Peak GR.4.7mmHgLVOT Peak Ebenezer.79.7cm/s LVOT VTI 15.84cmAO Mean GR.3mmHg DEANGELO (VMAX)1.27dy1KFI (VTI)2.20cm2 Mitral Valve MV E Ygqjkard94.8cm/sMV DECEL PENW380cu MV A Rkmhxrff76.9cm/sMV E Mean Gr.3mmHg MV QGH85kdO/A Ratio0.8 MVA (PHT)2.29cm2 TDI E/Lateral E'12.1E/Medial E'10.8 Pulmonary Valve PV Peak Ndzoajwa75.7cm/sPV Peak Grad.3mmHg Tricuspid Valve TR P. Quarcqdz075ou/sRAP QUQGXGRJ9mmZg TR Peak Gr.08kzRmDCMI89eqDn Pulmonary Vein S1 Apudgdkg58.1cm/sD2 Vfwatudb27.1cm/s LEFT VENTRICLE The left ventricle is normal size. There is borderline to mild concentric left ventricular hypertroph y. The left ventricular systolic function is normal and the ejection fraction is within normal range. The Ejection Fraction is 55-60%. There is normal LV segmental wall motion. Transmitral Doppler flow pattern is Grade I-abnormal relaxation pattern. RIGHT VENTRICLE The right ventricle is normal size. There is normal right ventricular wall thickness. The right ventr icular systolic function is normal. ATRIA The left atrium size is normal. The right atrium size is normal. The interatrial septum is intact wit h no evidence for an atrial septal defect or patent foramen ovale as noted on 2-D or Doppler imaging. AORTIC VALVE The aortic valve is calcified but opens well. Doppler and Color Flow revealed no significant aortic r egurgitation. There is no significant aortic valvular stenosis. Calculated aortic valve area is 2.75 cm2 with maximum pressure gradient of 6 mmHg and mean pressure gradient of 3 mmHg. MITRAL VALVE The mitral valve is thickened but opens well. There is no evidence of mitral valve prolapse. There is no mitral valve stenosis with an estimated PAP of 2.6 mmHg. Doppler and Color-flow revealed trace mi tral regurgitation. TRICUSPID VALVE The tricuspid valve is not well visualized. Doppler and Color Flow revealed trace tricuspid valve reg urgitation noted with an estimated PAP of 21 mmHg. There is no tricuspid valve stenosis. PULMONIC VALVE The pulmonic valve is not well visualized. Doppler and Color Flow revealed no pulmonic valvular regur gitation. GREAT VESSELS The aortic root is normal in size. The ascending aorta is normal in size. The IVC is normal in size a nd collapses >50% with inspiration. PERICARDIAL EFFUSION There is no evidence of significant pericardial effusion. Critical Notification Critical Value: No <Conclusion> The left ventricle is normal size. The left ventricular systolic function is normal and the ejection fraction is within normal range. The Ejection Fraction is 55-60%. There is borderline to mild concentric left ventricular hypertrophy. Doppler and Color Flow revealed no significant aortic regurgitation. There is no significant aortic valvular stenosis. Doppler and Color-flow revealed trace mitral regurgitation. Doppler and Color Flow revealed trace tricuspid valve regurgitation noted with an estimated PAP of 21 mmHg. Signed by : Bryant Beckfodr MD Electronically Approved : 12/07/2019 13:06:07
--- NOTE | 2019-12-07 13:34 | RAD ---
MR#: [id number] Date of Study: 12/07/2019 Ordering Physician: BEVERLY VELASQUEZ Referring Physician: JIHAN PERAZA Tech: DA Craig APPROVED REPORT Test Type: Pharmacological Stress Nurse/Tech: Kailey Ordonez RN Test Indications: CAD Cardiac History: Hypertension, High cholesterol, Diabetes, MS with stent Medications: See Electronic Medical Record Medical History: See Electronic Medical Record Resting ECG: SR with PVC's Resting Heart Rate: 78 bpm Resting Blood Pressure: 134/74mmHg Pretest Chest Pain: No chest pain Nurse/Tech Notes S1S2, lungs CTA Consent: The procedure was explained to the patient in lay terms. Informed consent was witnessed. Yosef eout was entered into [employer]. History and Stress Test performed by RT Liban (Irena) (N) Pharm. Details Pharmacologic stress testing was performed using 0.4mg per 5ml of regadenoson given intravenously ove r 7-10 seconds. Stress Symptoms Flushing, Dizziness POST EXERCISE Reason for Termination: Infusion complete Max HR: 146 bpm Max Blood Pressure: 135/72mmHg Blood Pressure response to exercise: Normal blood pressure response during stress. Heart Rate response to exercise: WNL Chest Pain: No. Arrhythmia: No. PVC's before and during stress test. ST Change: No. INTERPRETATION Stress EKG Conclusion: The resting EKG shows a sinus rhythm with mild nonspecific ST segment changes and an inferior Q wave. The stress EKG shows no significant changes from baseline. No EKG evidence of stress-induced ischemia. Imaging Protocol IMAGE PROTOCOL: Rest Tc-99m/stress Tc-99m 1 day Rest: Stress: Viability: Radiopharm.Tc99m IirggvyjnWi74p Sestamibi Lrqg28jKx 33mCi Duration 15min. 13min. Img Date 12/07/2019 12/07/2019 Inj-Img Yjuc37ciz. 60min. Rest Admin Site:IV - Right ForearmAdministrator:DA Craig Stress Admin Site: IV - Left AntecubitalAdministrator: RT Liban (R)(N) STRESS DATA End Diast. Vol.71.0mlLVEDV index BSA35.0ml End Syst. Vol.24.0mlLVESV index BSA12.0ml Myocardial Zjwc901.0gEject. Uwwpphxn48.0% Stress Scores Regional WT2.00Summed WT10.00 Regional WM1.00Summed WM9.00 LV Perfusion The stress scans showed no significant defects. The rest scans showed no significant defects. Nuclear imaging shows no reversible ischemia or infarct. Wall Motion Left ventricular systolic function is normal with no regional wall motion abnormalities and an ejecti on fraction of 68%. LV Perf. Quant 17 Seg. SSS2.00 17 Seg. SRS0.00 17 Seg. SDS2.00 Stress Defect Extent (% LAD)0.00Rest Defect Extent (% LAD)0.00Rev. Defect Extent (% LAD)0.00 Stress Defect Extent (% LCX) 25.00Rest Defect Extent (% LCX)0.00Rev. Defect Extent (% LCX)25.00 Stress Defect Extent (% RCA)0.00Rest Defect Extent (% RCA)0.00Rev. Defect Extent (% RCA)0.00 Stress Defect Extent (% AMOS)4.30Rest Defect Extent (% AMOS)0.00Rev. Defect Extent (% AMOS)4.30 Conclusion 1. No EKG evidence of stress-induced ischemia. 2. Nuclear imaging shows no reversible ischemia or infarct. 3. Normal left ventricular systolic function with an ejection fraction of 68%. 4. Low risk Lexiscan nuclear stress test. Signed by : Bryatn Beckford MD Electronically Approved : 12/07/2019 13:34:10
== END | disposition home or self-care (01) ==
LOC: NM 08:26
PROVIDERS: ATTEND Internal Medicine Cardiovascular Disease
DX: I35.1 Nonrheumatic aortic (valve) insufficiency (principal); I25.10 Atherosclerotic heart disease of native coronary artery without angina pectoris; I11.9 Hypertensive heart disease without heart failure; Z95.5 Presence of coronary angioplasty implant and graft
CPT/HCPCS: 78452; 93017; 93306; A9500; J2785

== ENCOUNTER → 2020-02-20 | Outpatient (CLI) | payer MEDICARE, MEDICAID ==
[~2020-02-20] MED LIST changes: +AMLO-187; -AMLO10TA8; -REGADENOSON 0.4 MG/5 ML DISP.SYRIN. IV ONE
--- NOTE | 2020-02-20 14:51 | KCIC ---
EXAM: MRI RIGHT KNEE DATE: 02/20/2020 12:30 PM CLINICAL INDICATION: Right knee pain, posteriorly. COMPARISON: None. Abdomen 220 TECHNIQUE: Multiplanar, multisequence MRI of the right knee was performed without contrast. FINDINGS: No knee joint effusion. Small Bejarano's cyst with trace edema inferiorly. ACL and PCL are intact. MCL, fibular collateral ligament, biceps femoris and IT band are intact. Popliteus is normal in signal and morphology, intact. Extensor mechanism is intact. Neutral patellar tracking. Lateral meniscus: Free edge blunting body segment lateral meniscus with oblique linear signal consistent with radial and oblique components Medial meniscus: Intact. No fracture or osteonecrosis. Full-thickness articular cartilage defect at the posterior aspect of the bilateral femoral condyle measures 4 mm. Full-thickness chondral effacement with subchondral cystic change at the patellar apex. IMPRESSION: 1. Complex tear body segment lateral meniscus. 2. Lateral and patellofemoral compartment chondromalacia. 3. Small Bejarano's cyst. Trace edema tracking inferiorly may represent partial leakage. Electronically signed by: Maurilio Hancock MD (02/20/2020 2:48 PM) KIEL
== END ==
LOC: KCIC MRI 12:17
PROVIDERS: ATTEND Orthopaedic Surgery
DX: M22.41 Chondromalacia patellae, right knee (principal); M71.21 Synovial cyst of popliteal space [Baker], right knee
CPT/HCPCS: 73721

== ENCOUNTER → 2020-02-22 | Outpatient (CLI) | payer OTHER, MEDICAID ==
--- NOTE | 2020-02-22 15:06 | RAD ---
EXAM: Sonographic guided left thyroid fine-needle aspiration. HISTORY: Thyroid nodule. TECHNIQUE: The risks of the procedure discussed with the patient and written and verbal consent was obtained. A timeout was performed. Sonographic imaging of the left thyroid lobe was performed and the lesion of concern was identified. This is an inferior solid nodule measuring 10 mm in maximum dimension. The skin in this location was sterilely prepped, draped and infiltrated with 1 percent lidocaine. Multiple passes were obtained through the nodule with sonographic guidance. A sterile bandage was placed at the needle entry site. The patient tolerated the procedure without difficulty. IMPRESSION: Sonographic guided left thyroid fine-needle aspiration. An addendum to this report will be submitted when pathology results are available. Electronically signed by: Helena Albert MD (02/22/2020 3:03 PM) [id number]
--- NOTE | 2020-02-25 16:08 | PATHOLOGY ---
Note [facility] Accession Number: [id number] TESTS RESULT FLAG UNITS REF RANGE LAB Clinician Provided Cytology Information No. of containers..01 Other (Miscellaneous) Source: LT INF THYROID DIAGNOSIS: LT INF THYROID NEGATIVE FOR MALIGNANT CELLS. BETHESDA CATEGORY II. SPECIMEN CONSISTS OF BENIGN FOLLICULAR CELLS, HEMOSIDERIN-LADEN MACROPHAGES, COLLOID, AND BLOOD. THIS PATTERN IS CONSISTENT WITH A BENIGN FOLLICULAR NODULE. COLLOID IS PRESENT. THIS INTERPRETATION INCLUDES EVALUATION OF A CELL BLOCK. Pathologist ICD10: 02 E04.1 Signed out by: 02 Power Estevez MD, Pathologist NPI- [id number] Performed by: Kiara Marks, Technical Sourcing Recruiter ([facility]) Gross description: 30ML, COLORLESS, 2 FX 4 DQ /LCS 02/25/2020 0554 Local FLAG LEGEND: L-Low Normal,H-High Normal,LL-Alert Low,HH-Alert High <-Panic Low,>-Panic High,A-Abnormal,AA-Critical Abnormal Performed at: [facility] [address] [place] [address] Gonzalez Negro MD, 02 DAV[address] [facility] [address] [address] Power Estevez MD, Specimen Comment: A courtesy copy of this report has been sent to [phone] Specimen Comment: 75, Specimen Comment: Report sent to DR FOY,DR MUNOZ / DR LAW Specimen Comment: A duplicate report has been generated due to demographic updates. Performed at: [address] [facility] [id number] [facility] [address], [place] [address] MD Gonzalez Negro MD Phone: [phone]
== END | disposition home or self-care (01) ==
LOC: US 13:16
PROVIDERS: ATTEND Surgery
DX: E04.1 Nontoxic single thyroid nodule (principal); I25.10 Atherosclerotic heart disease of native coronary artery without angina pectoris; E78.00 Pure hypercholesterolemia, unspecified; I10 Essential (primary) hypertension; G47.30 Sleep apnea, unspecified; K21.9 Gastro-esophageal reflux disease without esophagitis; J43.9 Emphysema, unspecified; M19.90 Unspecified osteoarthritis, unspecified site; F41.9 Anxiety disorder, unspecified; F32.9 Major depressive disorder, single episode, unspecified; E11.42 Type 2 diabetes mellitus with diabetic polyneuropathy; Z90.710 Acquired absence of both cervix and uterus; Z98.890 Other specified postprocedural states; Z79.899 Other long term (current) drug therapy; Z79.82 Long term (current) use of aspirin; Z79.84 Long term (current) use of oral hypoglycemic drugs; Z87.891 Personal history of nicotine dependence; Z88.1 Allergy status to other antibiotic agents; Z88.8 Allergy status to other drugs, medicaments and biological substances; Z82.49 Family history of ischemic heart disease and other diseases of the circulatory system; Z83.3 Family history of diabetes mellitus
CPT/HCPCS: 10005; 60300; 76942; 88173; 88305

== ENCOUNTER → 2020-06-25 | Outpatient (CLI) | payer MEDICARE, MEDICAID ==
--- NOTE | 2020-06-25 08:26 | RAD ---
EXAM: CT low dose lung cancer screening. HISTORY: Tobacco use. TECHNIQUE: Computed tomographic images of the chest were obtained without contrast. Multiplanar refor matting was performed. *One or more of the following individualized dose reduction techniques were utilized for this examina tion: 1. Automated exposure control. 2. Adjustment of the mA and/or kV according to patient size. 3. Use of iterative reconstruction technique. COMPARISON: 06/04/2019. FINDINGS: The heart is normal in size. There is a stable small pericardial effusion. There is calcifi ed atherosclerotic plaque involving the aorta and coronary arteries. There is calcification of the mi tral valve annulus. There is a peripherally calcified nodule within the left thyroid lobe measuring 1 .8 cm. There are few calcified mediastinal granulomas. There is no lymphadenopathy. There is no pneumothorax or pleural effusion. There is no infiltrate. There is linear scarring or ate lectasis within the lingula. There are few stable tiny right upper lobe nodules, largest which measur es 2 mm (series 2, image 101). There is stable groundglass nodular opacity measuring 3 mm within the posterior left upper lobe (series 2, image 78). There is mild central bronchial wall thickening likely due to the sequela of prior bronchitis. There is no acute finding involving the upper abdomen. There are degenerative changes involving the spine. This is predominantly at T11-T12. IMPRESSION: 1. Stable tiny nodules and groundglass nodular opacities within the upper lobes measuring up to 3 mm. Lung RADS category 2: [address] recommended. 2. Stable small pericardial effusion. 3. Stable slight bronchial wall thickening, a finding which can be seen as a sequela of bronchitis. 4. Stable left thyroid nodule. This can be better assessed with a thyroid sonogram. Electronically signed by: Helena Albert MD (06/25/2020 8:24 AM) [id number]
== END ==
LOC: CT 09:35
PROVIDERS: ATTEND Internal Medicine
DX: R91.1 Solitary pulmonary nodule (principal); I31.3 Pericardial effusion (noninflammatory); E04.1 Nontoxic single thyroid nodule; Z72.0 Tobacco use; Z12.2 Encounter for screening for malignant neoplasm of respiratory organs
CPT/HCPCS: 71271

== ENCOUNTER → 2020-12-17 | Outpatient (CLI) | payer MEDICARE, MEDICAID ==
--- NOTE | 2020-12-17 17:18 | CARD ---
MR#: [id number] Date of Study: 12/17/2020 Ordering Physician: BEVERLY VELASQUEZ, Referring Physician: BEVERLY VELASQUEZ Tech: Aileen Lam [facility] APPROVED REPORT EXAM: Two-dimensional and M-mode echocardiogram with Doppler and color Doppler. Other Information Quality : Technically LimitedHR: 99bpm Rhythm : NSR INDICATION Dyspnea RISK FACTORS Obesity Smoking 2D DIMENSIONS RVDd3.7 (2.9-3.5cm)Left Atrium(2D)3.1 (1.6-4.0cm) IVSd1.0 (0.7-1.1cm)Aortic Root(2D)3.0 (2.0-3.7cm) LVDd3.8 (3.9-5.9cm)LVOT Diameter2.6 (1.8-2.4cm) PWd1.1 (0.7-1.1cm)LVDs2.4 (2.5-4.0cm) FS (%) 35.4 %SV39.6 ml LVEF(%)65.6 (>50%) Aortic Valve AoV Peak Ebenezer.128.9cm/sAoV VTI26.5cm AO Peak GR.6.7mmHgLVOT Peak Ebenezer.98.9cm/s AO Mean GR.3mmHgAVA (VMAX)3.97cm2 Mitral Valve MV E Ntkpazoe53.5cm/sMV DECEL VJPV306at MV A Ivavqsye43.0cm/sE/A Ratio0.8 LEFT VENTRICLE The left ventricle is normal size. There is normal left ventricular wall thickness. The left ventricu lar systolic function is normal. Estimated ejection fraction 60-65%. There is normal LV segmental wa ll motion. Transmitral Doppler flow pattern is Grade I-abnormal relaxation pattern. RIGHT VENTRICLE The right ventricle is borderline dilated. There is normal right ventricular wall thickness. The righ t ventricular systolic function is normal. ATRIA The left atrium size is normal. The right atrium is mildly dilated. The interatrial septum is intact with no evidence for an atrial septal defect or patent foramen ovale as noted on 2-D or Doppler imagi ng. AORTIC VALVE The aortic valve is normal in structure and function. Doppler and Color Flow revealed no significant aortic regurgitation. There is no significant aortic valvular stenosis. MITRAL VALVE The mitral valve is normal in structure and function. There is no evidence of mitral valve prolapse. There is no mitral valve stenosis. Doppler and Color Flow revealed no mitral valve regurgitation note d. TRICUSPID VALVE The tricuspid valve is normal in structure and function. Doppler and Color Flow revealed trace tricus pid regurgitation. There is no tricuspid valve stenosis. PULMONIC VALVE The pulmonary valve is normal in structure and function. Doppler and Color Flow revealed no pulmonic valvular regurgitation. GREAT VESSELS The aortic root is normal in size. The ascending aorta is normal in size. The IVC is normal in size a nd collapses <50% with inspiration. PERICARDIAL EFFUSION There is no evidence of significant pericardial effusion. Critical Notification Critical Value: No <Conclusion> The left ventricular systolic function is normal. Estimated ejection fraction 60-65%. There is normal LV segmental wall motion. Transmitral Doppler flow pattern is Grade I-abnormal relaxation pattern. Trace tricuspid regurgitation. There is no evidence of significant pericardial effusion. Signed by : Beverly Velasquez, Electronically Approved : 12/17/2020 17:18:08
== END ==
LOC: ECHO 14:47
PROVIDERS: ATTEND Internal Medicine Cardiovascular Disease
DX: I25.10 Atherosclerotic heart disease of native coronary artery without angina pectoris (principal)
CPT/HCPCS: 93306

== ENCOUNTER → 2021-06-24 | Outpatient (CLI) | payer MEDICARE, MEDICAID ==
[~2021-06-24] MED LIST changes: +CYCL10TA19 PO; -CYCL10TA2 PO; +REGADENOSON 0.4 MG/5 ML DISP.SYRIN. IV ONE
--- NOTE | 2021-06-25 11:28 | RAD ---
MR#: [id number] Date of Study: 06/24/2021 Ordering Physician: BEVERLY VELASQUEZ, Referring Physician: JIHAN PERAZA Tech: KIM Jacques ARRT (R) (N) APPROVED REPORT Test Type: Pharmacological Stress Nurse/Tech: Jennifer Woodward RN Test Indications: Coronary Artery Disease Cardiac History: Hypertension, Diabetes,smoker,COPD Medications: See Electronic Medical Record Medical History: See Electronic Medical Record Resting ECG: SR with PVC Resting Heart Rate: 90 bpm Resting Blood Pressure: 139/76mmHg Pretest Chest Pain: No chest pain Nurse/Tech Notes S1,S2 and lungs diminished in the bases. Consent: The procedure was explained to the patient in lay terms. Informed consent was witnessed. Yosef eout was entered into [employer]. History and Stress Test performed by KIM Jacques ARRT (R) (N) Pharm. Details Pharmacologic stress testing was performed using 0.4mg per 5ml of regadenoson given intravenously ove r 7-10 seconds. Stress Symptoms Nausea,headache POST EXERCISE Reason for Termination: Infusion complete Target HR: No Max HR: 124 bpm 91% of Maximum Predicted HR: 136 bpm Max Blood Pressure: 125/73mmHg Blood Pressure response to exercise: Normal blood pressure response during stress. Heart Rate response to exercise: WNL Chest Pain: No. Arrhythmia: Yes. PVC ST Change: No. INTERPRETATION Stress EKG Conclusion: No evidence of stress induced EKG changes. Imaging Protocol IMAGE PROTOCOL: Rest Tc-99m/stress Tc-99m 1 day Rest: Stress: Viability: Radiopharm.Tc99m [id number] Sestamibi Dose10.3mCi 30.2mCi Inj-Img Rzia91mju. 90min. Rest Admin Site:IV - Right ForearmAdministrator:KIM Jacques ARRT (R)(N) Stress Admin Site: IV - Right ForearmAdministrator: KIM Jacques ARRT (R)(N) STRESS DATA End Diast. Vol.55.0mlLVEDV index BSA27.0ml End Syst. Vol.9.0mlLVESV index BSA4.0ml Myocardial Vbqs951.0gEject. Vlzjroko87.0% Stress Scores Regional WT1.00Summed WT11.00 Regional WM0.00Summed WM1.00 The rest and stress images show normal perfusion, normal contraction and thickening. LV Perf. Quant 17 Seg. SSS0.00 17 Seg. SRS0.00 17 Seg. SDS0.00 Stress Defect Extent (% LAD)0.00Rest Defect Extent (% LAD)0.00Rev. Defect Extent (% LAD)0.00 Stress Defect Extent (% LCX) 0.00Rest Defect Extent (% LCX)12.50Rev. Defect Extent (% LCX)0.00 Stress Defect Extent (% RCA)0.00Rest Defect Extent (% RCA)0.00Rev. Defect Extent (% RCA)0.00 Stress Defect Extent (% AMOS)0.00Rest Defect Extent (% AMOS)2.20Rev. Defect Extent (% AMOS)0.00 Other Information Quality:Good Risk Assessment: Low Risk Conclusion 1. No evidence of EKG changes with stress testing. 2. Normal perfusion at stress/rest. 3. Low risk study. 4. EF > 60%. Signed by : Lorenzo Quan, Electronically Approved : 06/25/2021 11:27:54
== END ==
LOC: NM 08:09
PROVIDERS: ATTEND Internal Medicine Cardiovascular Disease
DX: I25.10 Atherosclerotic heart disease of native coronary artery without angina pectoris (principal)
CPT/HCPCS: 78452; 93017; A9500; J2785